=== PATIENT | male | born 1930 | race Caucasian/White ===

== ENCOUNTER 2017-02-22 10:42 | Inpatient (IN) | payer OTHER ==
[~2017-02-22] VITALS: Ht 162.6 cm; Wt 55.1 kg
[~2017-02-22 10:42] MED LIST: CITA40TA12 PO; CYAN500T PO; DONE1TAB26 PO; LATA0.5S OP; LEVO50TA PO; LISI-461 PO; NUTR-1197 PO; SIMV40TA4 PO
--- NOTE | 2017-02-22 11:20 | EMERGENCY ROOM VISIT NOTE ---
History Report prepared by Calderon: Jeniffer Maurice Under the Supervision of: Dr. Velma Morales M.D. First contact with patient: 10:54 Chief Complaint: ILLNESS Stated Complaint: DISORIENTED,POSSIBLE DEHYDRATION,COLD,HAS DEMENTIA History of Present Illness The patient is an 86 year old male who presents to the Emergency Room with complaints of increasing confusion that began five days ago. Per the patient's daughter, the patient has a history of dementia. She states that since Monday the patient's confusion has been worsening. The patient's daughter notes that the patient is increasingly irritable. She states that the patient has been urinating more frequently. The patient's daughter states that the patient has not been eating or drinking normally. She states that the patient typically sleeps often. The patient's daughter states that the patient has 24/ 7 nursing care. She notes that the patient was agitated on Monday evening. The patient's daughter denies the patient having hallucinations, but states that the patient's thoughts have not been making sense. She states that the patient typically can get up and walk with assistance to the bathroom, but states that recently the patient has not been. The history is limited secondary to the patient's dementia. Source of History: patient Onset: five days ago Position: other (global) Quality: other (confusion) Timing: other (increasing) Review of Systems The history is limited secondary to the patient's dementia. Past Medical & Surgical Medical Problems: (1) Dementia (2) DM (diabetes mellitus) (3) HTN (hypertension) (4) Hypothyroidism Social History Problems: (1) Hernia Family History Diabetes mellitus Hypertension Social History Smoking Status: Never Smoker Alcohol Use: none Drug Use: none Marital Status: Housing Status: lives with family Occupation Status: retired Current/Historical Medications Scheduled Aspirin (Aspirin Ec), 81 MG PO DAILY Brimonidine Tartrate (Brimonidine Tartrate), 1 DROP OPB BID Cholecalciferol (Vitamin D), 2,000 UNITS PO DAILY Citalopram Hydrobromide (Celexa), 20 MG PO DAILY Cyanocobalamin (Vitamin B-12), 500 MCG PO DAILY Donepezil Hydrochloride (Aricept), 1 TAB PO DAILY Dorzolamide Hcl-Timolol Maleat (Cosopt Oph), 1 DROPS OPB BID Enteral Nutrition Formula (Ensure), 1 CAN PO UD Latanoprost (Xalatan 0.005% Oph [place]), 1 DROPS OPB HS Levothyroxine Sodium (Synthroid), 50 MCG PO DAILY Lisinopril (Prinivil), 5 MG PO DAILY Melatonin (Melatonin), 5 MG PO HS Allergies Coded Allergies: No Known Allergies (Unverified , 02/22/17) Physical Exam Vital Signs Date Time Temp Pulse Resp B/P (MAP) Pulse Ox O2 Delivery O2 Flow Rate FiO2 02/22/17 13:52 37.9 76 18 128/82 Room Air 02/22/17 12:51 74 02/22/17 12:49 37.9 02/22/17 10:45 76 18 128/82 96 Room Air Physical Exam Vital signs reviewed. General: Chronically ill appearing male, elderly, in no significant distress. Not cooperative with exam. HEENT: No scleral icterus, PERRLA, neck supple. Atraumatic. Cardiovascular: Regular rate and rhythm, no extra sounds. Pulmonary: Clear to auscultation bilaterally, normal work of breathing. Abdomen: Soft, nontender, nondistended, positive bowel sounds. Musculoskeletal: Atraumatic, no peripheral edema. Neurologic: Patient is moving all extremities, but is not cooperative, nonverbal , will not follow commands. Skin: Warm, dry, no rash Medical Decision & Procedures ER Provider Diagnostic Interpretation: Radiology results as stated below per my review and radiologist interpretation: CT HEAD WITHOUT CONTRAST (CT) CLINICAL HISTORY: AMS CONFUSION COMPARISON STUDY: 04/21/2013 TECHNIQUE: Axial CT of the brain is performed from the vertex to the skull base. IV contrast was not administered for this examination. A dose lowering technique was utilized adhering to the principles of ALARA. CT DOSE: 1612.45 mGy.cm FINDINGS: No intra or extra-axial mass lesions are visualized. There is no CT evidence of acute cortical infarction. There is no evidence of midline shift. There is no acute hemorrhage. No calvarial fractures are visualized. There are moderate white matter hypodensities likely on a small vessel basis. There are moderate atrophic changes. There is no evidence of pathologic ventricular dilatation. There is no evidence of acute sinusitis IMPRESSION: 1. Study compromised due to patient motion 2. No acute intracranial findings. 3. No evidence of acute hemorrhage. White matter hypodensities and atrophy, likely on a small vessel basis Electronically signed by: Derrick Shaw M.D. 02/22/2017 12:45 PM Dictated Date/Time: 02/22/2017 12:41 PM CHEST ONE VIEW PORTABLE CLINICAL HISTORY: AMS COMPARISON STUDY: 11/09/2015 FINDINGS: The cardiac and mediastinal contours remain stable. There is no failure. There is no focal pulmonary consolidation. There are no pleural effusions. Advanced degenerative changes are present within the left shoulder. IMPRESSION: No active disease in the chest. Electronically signed by: Derrick Shaw M.D. 02/22/2017 12:05 PM Dictated Date/Time: 02/22/2017 12:04 PM Laboratory Results Test 02/22/17 11:45 02/22/17 11:55 02/22/17 13:03 02/22/17 14:15 Direct Bilirubin 0.2 mg/dl (0-0.2) Total Creatine Kinase 49 U/L (39-308) Creatine Kinase MB < 0.5 ng/ml (0.5-3.6) Creatine Kinase MB Ratio (0-3.0) Lipase 257 U/L (73-393) Thyroid Stimulating Hormone (TSH) 1.190 uIu/ml (0.300-4.500) Rapid Plasma Reagin NONREACTIVE (NONREACT) Bedside Lactic Acid Venous 1.99 mmol/L (0.90-1.70) Bedside Troponin I < 0.030 ng/ml (0-0.045) Urine Color DK YELLOW Urine Appearance CLEAR (CLEAR) Urine pH 5.0 (4.5-7.5) Urine Specific [place] 1.025 (1.000-1.030) Urine Protein 1+ (NEG) Urine Glucose (UA) NEG (NEG) Urine Ketones NEG (NEG) Urine Occult Blood NEG (NEG) Urine Nitrite NEG (NEG) Urine Bilirubin NEG (NEG) Urine Urobilinogen NEG (NEG) Urine Leukocyte Esterase NEG (NEG) Urine WBC (Auto) 0 /hpf (0-5) Urine RBC (Auto) 0-4 /hpf (0-4) Urine Hyaline Casts (Auto) 1-5 /lpf (0-5) Urine Epithelial Cells (Auto) 5-10 /lpf (0-5) Urine Bacteria (Auto) NEG (NEG) Influenza Type A Antigen POS for Influ A (NEG) Influenza Type B Antigen Neg for Influ B (NEG) Date/Time Source Procedure Growth Status 02/22/17 00:00 Stool C.difficile Toxin B Gene (PCR) - Final No C. difficile toxin B gene detected Complete Laboratory results per my review. Medications Administered Medications (Trade) Dose Ordered Sig/Reid Route Start Time Stop Time Status Last Admin Dose Admin Piperacillin Sod/ Tazobactam Sod (Zosyn Iv) 4.5 gm NOW STAT IV 02/22/17 12:51 02/22/17 12:53 DC 02/22/17 13:20 4.5 GM Sodium Chloride 250 ml @ 999 mls/hr Q16M STAT IV 02/22/17 12:51 02/22/17 13:06 DC 02/22/17 12:51 999 MLS/HR Sodium Chloride 1,000 ml @ 125 mls/hr Q8H STAT IV 02/22/17 12:51 02/22/17 15:22 DC 02/22/17 13:20 125 MLS/HR Acetaminophen 650 mg/Empty Bag 65 ml @ 260 mls/hr NOW STAT IV 02/22/17 12:51 02/22/17 13:05 DC 02/22/17 14:31 260 MLS/HR ECG Indication: altered mental status Rate (beats per minute): 68 Rhythm: sinus rhythm Findings: PAC, left axis deviation, other (low voltage, likely previous anteiror infarct, t wave flattening) ED Course 1113: Past medical records reviewed. The patient was evaluated in room C4. A complete history and physical examination was performed. 1251: Ordered Acetaminophen 650 mg/Empty Bag 65 ml @ 260 mls/hr IV, Sodium Chloride 1000 ml @ 125 mls/hr IV, Sodium Chloride 250 ml @ 999 mls/hr IV, Zosyn IV 4.5 gm IV. 1323: I reevaluated the patient and he is resting. I discussed the test results with the patients daughters and I discussed the treatment plan. They verbalized complete understanding and agreement. The patient will be evaluated for further treatment. 1325: I discussed the patients case with Lorena Kwan PA-C. She is going to evaluate the patient for further treatment Medical Decision Differential diagnosis: Etiologies such as metabolic, infection, hypoglycemia, electrolyte abnormalities , cardiac sources, intracerebral event, toxicologic, neurologic, as well as others were entertained. This pt was evaluated and appeared to be in no distress. IV access was obtained and lab work was drawn. Pt was given IV tylenol d/t refusal for food and fluids. EKG reveals no acute changes. Lab work is fairly unrevealing. UA is negative, CXR is clear. Head CT reveals no acute intracranial abnormality. Nursing staff performed guaiac stool that is positive, H/H is stable. Pt was given zosyn 4.5 gm IV for fever of unknown origin. Pt will be evaluated by the hospitalist service for further management. Medication Reconcilliation Current Medication List: was personally reviewed by me Blood Pressure Screening Patient's blood pressure: Normal blood pressure Blood pressure disposition: Did not require urgent referral Consults Time Called: 1322 Consulting Physician: Lorena Kwan PA-C Returned Call: [phone] I discussed the patients case with Lorena Kwan PA-C. She is going to evaluate the patient for further treatment Impression Primary Impression: Altered mental status Additional Impressions: Refusal to take fluids Fever Guaiac positive stools Scribe Attestation The scribe's documentation has been prepared under my direction and personally reviewed by me in its entirety. I confirm that the note above accurately reflects all work, treatment, procedures, and medical decision making performed by me. Departure Information Dispostion Being Evaluated By Hospitalist Referrals No Doctor, Assigned (PCP) Problem Qualifiers
[2017-02-22] MEDS ORDERED: NUTR-706 PO (11:32)
[2017-02-22] MEDS ORDERED: CYAN500T PO (11:32)
[2017-02-22] MEDS ORDERED: LISI-729 PO (11:32)
[2017-02-22] MEDS ORDERED: ASPI81TA28 PO (11:32)
[2017-02-22] MEDS ORDERED: CITA40TA12 PO (11:32)
[2017-02-22] MEDS ORDERED: MELA1TAB54 PO (11:32)
[2017-02-22] MEDS ORDERED: LEVO50TA PO (11:32)
[2017-02-22] MEDS ORDERED: CHOL100010 PO (11:32)
[2017-02-22] MEDS ORDERED: LATA0.009 OPB (11:32)
[2017-02-22] MEDS ORDERED: BRIM0.2S18 OPB (11:32)
[2017-02-22] MEDS ORDERED: DORZ2SOL20 OPB (11:32)
--- NOTE | 2017-02-22 12:06 | DIAGNOSTIC IMAGING REPORT ---
CHEST ONE VIEW PORTABLE CLINICAL HISTORY: AMS COMPARISON STUDY: 11/09/2015 FINDINGS: The cardiac and mediastinal contours remain stable. There is no failure. There is no focal pulmonary consolidation. There are no pleural effusions. Advanced degenerative changes are present within the left shoulder. IMPRESSION: No active disease in the chest. Electronically signed by: Derrick Shaw M.D. 02/22/2017 12:05 PM Dictated Date/Time: 02/22/2017 12:04 PM
[2017-02-22 12:32] LABS: BASO % 0.2 %; BASO ABS # 0.01 K/uL (0-0.2); COMPLETE YES; HEMATOCRIT 42.8 % (42-52); IG% 0.2 %; LYMPH ABS # 0.81 K/uL (1.2-3.4); MEAN CELL VOLUME 101.9 fL (80-100); MEAN CORPUSCULAR HGB CONC 33.4 g/dl (32-36); MEAN PLATELET VOLUME 11.5 fL (7.4-10.4); NEUT % 67.6 %; PLATELET COUNT 126 K/uL (130-400)
--- NOTE | 2017-02-22 12:46 | DIAGNOSTIC IMAGING REPORT ---
CT HEAD WITHOUT CONTRAST (CT) CLINICAL HISTORY: AMS CONFUSION COMPARISON STUDY: 04/21/2013 TECHNIQUE: Axial CT of the brain is performed from the vertex to the skull base. IV contrast was not administered for this examination. A dose lowering technique was utilized adhering to the principles of ALARA. CT DOSE: 1612.45 mGy.cm FINDINGS: No intra or extra-axial mass lesions are visualized. There is no CT evidence of acute cortical infarction. There is no evidence of midline shift. There is no acute hemorrhage. No calvarial fractures are visualized. There are moderate white matter hypodensities likely on a small vessel basis. There are moderate atrophic changes. There is no evidence of pathologic ventricular dilatation. There is no evidence of acute sinusitis IMPRESSION: 1. Study compromised due to patient motion 2. No acute intracranial findings. 3. No evidence of acute hemorrhage. White matter hypodensities and atrophy, likely on a small vessel basis Electronically signed by: Derrick Shaw M.D. 02/22/2017 12:45 PM Dictated Date/Time: 02/22/2017 12:41 PM
[2017-02-22 12:50] LABS: ALT/SGPT 18 U/L (12-78); AST/SGOT 12 U/L (15-37); BLOOD UREA NITROGEN 29 mg/dl (7-18); BUN/CREATININE RATIO 18.8 (10-20); CALCIUM 8.9 mg/dl (8.5-10.1); CARBON DIOXIDE 26 mmol/L (21-32); CHLORIDE 104 mmol/L (98-107); CREATININE 1.52 mg/dl (0.60-1.40); GLUCOSE 108 mg/dl (70-99); MAGNESIUM 2.3 mg/dl (1.8-2.4); POTASSIUM 4.3 mmol/L (3.5-5.1); SODIUM 136 mmol/L (136-145)
[2017-02-22] MEDS ORDERED: PIPERACILLIN/TAZOBACTAM 4.5 GM/100ML D5W IV STA (12:51)
[2017-02-22] MEDS ORDERED: ACETAMINOPHEN IV 650 MG in EMPTY BAG 0 ML IV STA (12:51)
[2017-02-22] MEDS ORDERED: SODIUM CHLORIDE 0.9% 250ML 250 ML IV STA (12:51)
[2017-02-22] MEDS ORDERED: SODIUM CHLORIDE 0.9% 1000ML 1,000 ML IV STA (12:51)
[2017-02-22 12:59] LABS: ALKALINE PHOSPHATASE 48 U/L (45-117)
[2017-02-22 13:15] LABS: URINE APPEARANCE CLEAR (CLEAR); URINE BILIRUBIN NEG (NEG); URINE COLOR DK YELLOW; URINE NITRITE NEG (NEG); URINE SPECIFIC GRAVITY 1.025 (1.000-1.030); UROBILINOGEN NEG (NEG); ZZURINE CULT IF INDIC CATH NO
[2017-02-22 13:16] LABS: MANUAL MICROSCOPIC REQUIRED? NO; REVIEW REQ? NO
[2017-02-22 13:52] VITALS: BP 128/82; PULSE 76; TEMP 37.9
[2017-02-22 14:25] VITALS: O2SAT 96
[2017-02-22] MEDS ORDERED: DONE10TA12 PO (14:28)
[2017-02-22] MEDS ORDERED: ONDANSETRON INJ 2 MG/ML 2 ML VIAL IV PRN (14:30)
[2017-02-22] MEDS ORDERED: IV FLUIDS COMPLETED PRN (15:15)
[2017-02-22 15:29] VITALS: BP 96/54; PULSE 70; TEMP 37.5; O2SAT 93
[2017-02-22] MEDS ORDERED: SODIUM CHLORIDE 0.9% 1000ML 1,000 ML IV SCH (15:30)
--- NOTE | 2017-02-22 15:42 | History and Physical ---
History & Physical Date of Service Feb 22, 2017. History & Physical This is an 86 year old male with a PMH of advanced dementia, legal blindness, hard of hearing, HTN, hypothyroidism presents with alteration in baseline mental status. He is coming from home and as per daughter who is at bedside - patient has 24 hour care at home. She states that starting on Monday, patient became more agitated, running around at night and difficult to control. He started urinating frequently and everywhere. He has no lost his appetite and will not eat for anyone at home. Patient was brought in to the ER - daughter stated it took three people to bring him to the ER. Head CT - no acute findings CXR - no acute findings VITALS: Last Vital Signs Documentation Date Time Temp Pulse Resp B/P (MAP) Pulse Ox O2 Delivery O2 Flow Rate FiO2 02/22/17 14:25 64 18 96 Room Air 02/22/17 13:52 37.9 128/82 GEN: +lethargic, +advanced dementia, currently non-verbal HEENT: NC/AT CVS: +S1, S2, RRR LUNGS: CTA b/l, no wheezing ABD: soft, NT/ND EXT: no edema Advanced Dementia Underlying Delirium? as per family, his mental status is worse than baseline will check B12, ammonia, RPR levels recheck lactic acid and troponin level check a KUB check stool studies blood cultures pending IVFs boost BIDM PT/OT discharge planning evaluation Diarrhea check KUB check stool studies, check c. diff Hypothyroidism TSH wnl continue Synthroid DVT ppx subq heparin FULL CODE - as per daughter, patient has a living will and she will be bringing this in
--- NOTE | 2017-02-22 15:48 | History and Physical ---
History & Physical Date & Time of Service: Feb 22, 2017 at 15:23 Chief Complaint: Altered Mental Status, Dehydration Primary Care Physician: Jacinto Root D.O. History of Present Illness Source: patient, family (daughter and care management coordinator at bedside ), clinic records, hospital records This is an 86yo M with a PMH of advanced dementia, HTN, and DM who presents with increased confusion and agitation x 5 days. Patient lives at home and received 24/7 care by his daughters and 2 other care givers. At baseline, patient is verbal and responds to yes or no questions. Is alert and oriented x 2 and is able to ambulate without assistive devices. Has a healthy appetite and is continent of bowel and bladder. Starting on Monday evening, patient seemed more confused and agitated. Was speaking less than normal and his statements were not making sense. Daughter also states that patient has been sleeping more during the day but moving around at night. Is refusing PO intake of food and liquids. Has been urinating more frequently than normal and having some urinary incontinence. Has been having bowel movements but they are strained and infrequent over the past few weeks. HPI and ROS is limited due to patient's dementia/AMS. Also, patient was recently declared legally blind and is very hard of hearing. All history was obtained from daughter and caregiver. They state that patient has not complained of confusion, fever, chills, headache, chest pain, SOB, abd pain, nausea, vomiting over the past 5 days. Denies any hallucinations. Also denies any melena or hematochezia. Has a history of hemorrhoids. Past Medical/Surgical History Medical Problems: (1) Dementia Status: Chronic (2) DM (diabetes mellitus) Status: Chronic (3) HTN (hypertension) Status: Chronic (4) Hypothyroidism Status: Chronic Social History Problems: (1) Hernia Status: Resolved Family History Diabetes mellitus Hypertension Social History Smoking Status: Unknown if Ever Smoked Drug Use: none Marital Status: Housing status: other (Lives at home with 24/7 care) Occupational Status: retired Allergies Coded Allergies: No Known Allergies (Unverified , 02/22/17) Home Medications Scheduled Aspirin (Aspirin Ec), 81 MG PO DAILY Brimonidine Tartrate (Brimonidine Tartrate), 1 DROP OPB BID Cholecalciferol (Vitamin D), 2,000 UNITS PO DAILY Citalopram Hydrobromide (Celexa), 20 MG PO DAILY Cyanocobalamin (Vitamin B-12), 500 MCG PO DAILY Donepezil Hydrochloride (Aricept), 1 TAB PO DAILY Dorzolamide Hcl-Timolol Maleat (Cosopt Oph), 1 DROPS OPB BID Enteral Nutrition Formula (Ensure), 1 CAN PO UD Latanoprost (Xalatan 0.005% Oph Maria [place]), 1 DROPS OPB HS Levothyroxine Sodium (Synthroid), 50 MCG PO DAILY Lisinopril (Prinivil), 5 MG PO DAILY Melatonin (Melatonin), 5 MG PO HS Review of Systems Unable to complete a full ROS 04/14 patient's altered state. Any information I could successfully obtain is per HPI. Physical Exam Vital Signs Date Time Temp Pulse Resp B/P (MAP) Pulse Ox O2 Delivery O2 Flow Rate FiO2 02/22/17 14:25 64 18 96 Room Air 02/22/17 13:52 37.9 76 18 128/82 Room Air 02/22/17 12:51 74 02/22/17 12:49 37.9 02/22/17 10:45 76 18 128/82 96 Room Air General Appearance: + pertinent finding (Disheveled appearance, lethargic. Responded to some verbal commands. ) Head: normocephalic, atraumatic Eyes: normal inspection (legally blind bilaterally), PERRL, sclerae normal ENT: + pertinent finding (hard of hearing. refused to open mouth ) Neck: supple, no adenopathy, trachea midline Respiratory/Chest: chest non-tender, no respiratory distress, no accessory muscle use, + decreased breath sounds Cardiovascular: regular rate, rhythm, no murmur, normal peripheral pulses Abdomen/GI: soft, no organomegaly, + tenderness (TTP in LLQ. Otherwise non- tender) Extremities/Musculoskelatal: normal inspection, no calf tenderness, no pedal edema Neurologic/Psych: + pertinent finding (Responded to some commands but non- verbal at this time. Lethargic. ) Skin: normal color, warm/dry Diagnostics Laboratory Results Results Past 24 Hours Test 02/22/17 11:45 02/22/17 11:55 02/22/17 13:03 02/22/17 14:15 Range/Units White Blood Count 4.50 4.8-10.8 K/uL Red Blood Count 4.20 4.7-6.1 M/uL Hemoglobin 14.3 14.0-18.0 g/dL Hematocrit 42.8 42-52 % Mean Corpuscular Volume 101.9 80-100 fL Mean Corpuscular Hemoglobin 34.0 25-34 pg Mean Corpuscular Hemoglobin Concent 33.4 32-36 g/dl Platelet Count 126 130-400 K/uL Mean Platelet Volume 11.5 7.4-10.4 fL Neutrophils (%) (Auto) 67.6 % Lymphocytes (%) (Auto) 18.0 % Monocytes (%) (Auto) 14.0 % Eosinophils (%) (Auto) 0.0 % Basophils (%) (Auto) 0.2 % Neutrophils # (Auto) 3.04 1.4-6.5 K/uL Lymphocytes # (Auto) 0.81 1.2-3.4 K/uL Monocytes # (Auto) 0.63 0.11-0.59 K/uL Eosinophils # (Auto) 0.00 0-0.5 K/uL Basophils # (Auto) 0.01 0-0.2 K/uL RDW Standard Deviation 52.6 36.4-46.3 fL RDW Coefficient of Variation 14.1 11.5-14.5 % Immature Granulocyte % (Auto) 0.2 % Immature Granulocyte # (Auto) 0.01 0.00-0.02 K/uL Sodium Level 136 136-145 mmol/L Potassium Level 4.3 3.5-5.1 mmol/L Chloride Level 104 98-107 mmol/L Carbon Dioxide Level 26 21-32 mmol/L Anion Gap 6.0 3-11 mmol/L Blood Urea Nitrogen 29 7-18 mg/dl Creatinine 1.52 0.60-1.40 mg/dl Estimated GFR () 47.7 Estimated GFR (Non- 41.2 BUN/Creatinine Ratio 18.8 10-20 Random Glucose 108 70-99 mg/dl Calcium Level 8.9 8.5-10.1 mg/dl Magnesium Level 2.3 1.8-2.4 mg/dl Total Bilirubin 1.2 0.2-1 mg/dl Direct Bilirubin 0.2 0-0.2 mg/dl Aspartate Amino Transf (AST/SGOT) 12 15-37 U/L Alanine Aminotransferase (ALT/SGPT) 18 12-78 U/L Alkaline Phosphatase 48 45-117 U/L Total Creatine Kinase 49 39-308 U/L Creatine Kinase MB < 0.5 0.5-3.6 ng/ml Creatine Kinase MB Ratio 0-3.0 Total Protein 7.2 6.4-8.2 gm/dl Albumin 3.4 3.4-5.0 gm/dl Lipase 257 73-393 U/L Thyroid Stimulating Hormone (TSH) 1.190 0.300-4.500 uIu/ml Bedside Lactic Acid Venous 1.99 0.90-1.70 mmol/L Bedside Troponin I < 0.030 0-0.045 ng/ml Urine Color DK YELLOW Urine Appearance CLEAR CLEAR Urine pH 5.0 4.5-7.5 Urine Specific [place] 1.025 1.000-1.030 Urine Protein 1+ NEG Urine Glucose (UA) NEG NEG Urine Ketones NEG NEG Urine Occult Blood NEG NEG Urine Nitrite NEG NEG Urine Bilirubin NEG NEG Urine Urobilinogen NEG NEG Urine Leukocyte Esterase NEG NEG Urine WBC (Auto) 0 0-5 /hpf Urine RBC (Auto) 0-4 0-4 /hpf Urine Hyaline Casts (Auto) 1-5 0-5 /lpf Urine Epithelial Cells (Auto) 5-10 0-5 /lpf Urine Bacteria (Auto) NEG NEG Influenza Type A Antigen POS for Influ A NEG Influenza Type B Antigen Neg for Influ B NEG Test 02/22/17 14:48 02/22/17 15:18 Range/Units Lactic Acid Level 1.9 0.4-2.0 mmol/L Ammonia 18.9 11-32 umol/L Troponin I < 0.015 0-0.045 ng/ml Microbiology Results 02/22/17 Blood Culture, Received Pending 02/22/17 Blood Culture, Received Pending Diagnostic Radiology CT head: IMPRESSION: 1. Study compromised due to patient motion 2. No acute intracranial findings. 3. No evidence of acute hemorrhage. White matter hypodensities and atrophy, likely on a small vessel basis CXR normal EKG Sinus rhythm with Premature atrial complexes Left axis deviation Low voltage QRS Nonspecific T wave abnormality Abnormal ECG When compared with ECG of 09-NOV-2015 18:56, Premature atrial complexes are now Present Nonspecific T wave abnormality now evident in Anterolateral leads Confirmed Impression Assessment and Plan This is an 86yo M with a PMH of advanced dementia, HTN, hypothyroidism and DM who presents with increased confusion and agitation x 5 days. Confusion/agitation: -Likely due to advanced dementia and ?superimposed delirium -Currently lethargic, non-verbal, lacking an appetite, not ambulating -At baseline patient can ambulate independently and answer yes/no questions -CT head normal, no leukocytosis, electrolytes and UA WNL -B12, RPR, Flu PCR, ammonia level pending -Repeat lactic acid and troponin pending -Boost BID -PT/OT Fever: -Rectal temp of 37.9. Unclear etiology -No leukocytosis -CXR without opacities, UA clean -Flu PCR pending -Received empiric dose of Zosyn in ER -Blood cultures, stool cultures pending -Fluids Constipation, +FOBT: -H/o hemorrhoids -Daughter reports constipation x 2 weeks -No reported melena, hematochezia -Hgb stable at 14.3 -Check a KUB -IVF resuscitation HTN: -Normotensive -Continue home dose lisinopril Hypothyroidism: -TSH wnl -Continue levothyroxine DM: -Diet controlled DVT Ppx: Heparin SQ Code status: FULL code. Daughter, who is POA, has a copy of his living will that she will bring from home. PCP: [facility] Dispo: Observation medsurg. Discharge planning ordered. Patient seen in collaboration with Dr. Hamilton. Please see addendum. Level of Care Telemetry Advanced Directives Existing Living Will: Yes Existing Power of Wire Spiral Binder: Yes Resuscitation Status FULL RESUSCITATION VTE Prophylaxis VTE Risk Assessment Done? Y/N: Yes Risk Level: Moderate Given or contraindicated: SCD's Social Service Consult Receiving Home Health
[2017-02-22] MEDS ORDERED: PATIENT'S HEIGHT AND/OR WEIGHT NEEDED SCH (16:30)
[2017-02-22 17:34] LABS: PARTIAL THROMBOPLASTIN RATIO 1.3; PROTHROMBIN TIME (PATIENT) 10.8 SECONDS (9.0-12.0)
[2017-02-22] MEDS: BOOST VANILLA PO SCH ×2 (17:37)
[2017-02-22 18:01] VITALS: Ht 162.6 cm; Wt 55.1 kg
--- NOTE | 2017-02-22 20:48 | DIAGNOSTIC IMAGING REPORT ---
KUB HISTORY: constipation COMPARISON: None. FINDINGS: Exam is limited secondary to patient positioning. Bowel gas pattern is nonobstructive. Scattered air-filled nondilated loops of bowel are seen throughout the abdomen. No significant stool burden suggests constipation. No gross pneumoperitoneum. Renal shadows are obscured by bowel gas. No definite urolith or organomegaly. Vascular calcifications are noted. Degenerative changes are seen within the spine and pelvis. Lung bases appear generally clear. IMPRESSION: 1. Nonobstructive bowel gas pattern. 2. No evidence of constipation. Electronically signed by: Aman Zarco M.D. 02/22/2017 8:47 PM Dictated Date/Time: 02/22/2017 8:45 PM
[2017-02-22] MEDS ORDERED: HEPARIN SOD 5000 UNIT/0.5 ML CARP SQ SCH (21:00)
[2017-02-22] MEDS: DORZOLAMIDE/TIMOLOL 22.3/6.8MG/ML 10 ML BTL OPB SCH (22:03)
[2017-02-22] MEDS: LATANOPROST 0.005% OP SOLN 2.5 ML BTL OPB SCH (22:03)
[2017-02-22] MEDS: BRIMONIDINE TARTRATE 0.2% 5ML OPB SCH (22:03)
[2017-02-22 23:50] VITALS: BP 116/71; PULSE 65
[2017-02-23] MEDS ORDERED: HALOPERIDOL LACTATE 5 MG/ML 1 ML VIAL IM PRN
[2017-02-23] MEDS ORDERED: HALOPERIDOL 1 MG TAB PO PRN
--- NOTE | 2017-02-23 02:38 | Progress Note ---
Internal Med Progress Note Date of Service: Feb 23, 2017. Provider Documentation: Made aware by RN of agitation, bloody diarrhea. Patient unable to communicate abdominal pain complaints. stool cdif negative AP ? Hemorrhagic enterocolitis serial HH, hold heparin subcutaneous for now CT abd pelvis once patient cooperative IV Ceftriaxone, Flagyl for enterocolitis for now May need GI consult. Will relay to AM provider. Vital Signs: Date Time Temp Pulse Resp B/P (MAP) Pulse Ox O2 Delivery O2 Flow Rate FiO2 02/23/17 00:00 Room Air 02/22/17 23:50 65 116/71 (86) 02/22/17 15:29 37.5 70 18 96/54 (68) 93 Room Air 02/22/17 14:25 64 18 96 Room Air 02/22/17 13:52 37.9 76 18 128/82 Room Air 02/22/17 12:51 74 02/22/17 12:49 37.9 02/22/17 10:45 76 18 128/82 96 Room Air Lab Results: Results Past 24 Hours Test 02/22/17 11:45 02/22/17 11:55 02/22/17 13:03 02/22/17 14:15 Range/Units White Blood Count 4.50 4.8-10.8 K/uL Red Blood Count 4.20 4.7-6.1 M/uL Hemoglobin 14.3 14.0-18.0 g/dL Hematocrit 42.8 42-52 % Mean Corpuscular Volume 101.9 80-100 fL Mean Corpuscular Hemoglobin 34.0 25-34 pg Mean Corpuscular Hemoglobin Concent 33.4 32-36 g/dl Platelet Count 126 130-400 K/uL Mean Platelet Volume 11.5 7.4-10.4 fL Neutrophils (%) (Auto) 67.6 % Lymphocytes (%) (Auto) 18.0 % Monocytes (%) (Auto) 14.0 % Eosinophils (%) (Auto) 0.0 % Basophils (%) (Auto) 0.2 % Neutrophils # (Auto) 3.04 1.4-6.5 K/uL Lymphocytes # (Auto) 0.81 1.2-3.4 K/uL Monocytes # (Auto) 0.63 0.11-0.59 K/uL Eosinophils # (Auto) 0.00 0-0.5 K/uL Basophils # (Auto) 0.01 0-0.2 K/uL RDW Standard Deviation 52.6 36.4-46.3 fL RDW Coefficient of Variation 14.1 11.5-14.5 % Immature Granulocyte % (Auto) 0.2 % Immature Granulocyte # (Auto) 0.01 0.00-0.02 K/uL Sodium Level 136 136-145 mmol/L Potassium Level 4.3 3.5-5.1 mmol/L Chloride Level 104 98-107 mmol/L Carbon Dioxide Level 26 21-32 mmol/L Anion Gap 6.0 3-11 mmol/L Blood Urea Nitrogen 29 7-18 mg/dl Creatinine 1.52 0.60-1.40 mg/dl Estimated GFR () 47.7 Estimated GFR (Non- 41.2 BUN/Creatinine Ratio 18.8 10-20 Random Glucose 108 70-99 mg/dl Calcium Level 8.9 8.5-10.1 mg/dl Magnesium Level 2.3 1.8-2.4 mg/dl Total Bilirubin 1.2 0.2-1 mg/dl Direct Bilirubin 0.2 0-0.2 mg/dl Aspartate Amino Transf (AST/SGOT) 12 15-37 U/L Alanine Aminotransferase (ALT/SGPT) 18 12-78 U/L Alkaline Phosphatase 48 45-117 U/L Total Creatine Kinase 49 39-308 U/L Creatine Kinase MB < 0.5 0.5-3.6 ng/ml Creatine Kinase MB Ratio 0-3.0 Total Protein 7.2 6.4-8.2 gm/dl Albumin 3.4 3.4-5.0 gm/dl Lipase 257 73-393 U/L Thyroid Stimulating Hormone (TSH) 1.190 0.300-4.500 uIu/ml Bedside Lactic Acid Venous 1.99 0.90-1.70 mmol/L Bedside Troponin I < 0.030 0-0.045 ng/ml Urine Color DK YELLOW Urine Appearance CLEAR CLEAR Urine pH 5.0 4.5-7.5 Urine Specific [place] 1.025 1.000-1.030 Urine Protein 1+ NEG Urine Glucose (UA) NEG NEG Urine Ketones NEG NEG Urine Occult Blood NEG NEG Urine Nitrite NEG NEG Urine Bilirubin NEG NEG Urine Urobilinogen NEG NEG Urine Leukocyte Esterase NEG NEG Urine WBC (Auto) 0 0-5 /hpf Urine RBC (Auto) 0-4 0-4 /hpf Urine Hyaline Casts (Auto) 1-5 0-5 /lpf Urine Epithelial Cells (Auto) 5-10 0-5 /lpf Urine Bacteria (Auto) NEG NEG Influenza Type A Antigen POS for Influ A NEG Influenza Type B Antigen Neg for Influ B NEG Test 02/22/17 14:48 02/22/17 16:02 02/22/17 16:52 02/23/17 02:43 Range/Units Lactic Acid Level 1.9 0.4-2.0 mmol/L Ammonia 18.9 11-32 umol/L Troponin I < 0.015 0-0.045 ng/ml Vitamin B12 Level 622 211-911 pg/mL Folate 10.07 >5.38 ng/mL Prothrombin Time 10.8 9.0-12.0 SECONDS Prothromb Time International Ratio 1.0 0.9-1.1 Activated Partial Thromboplast Time 34.8 21.0-31.0 SECONDS Partial Thromboplastin Ratio 1.3 White Blood Count 4.01 4.8-10.8 K/uL Red Blood Count 4.02 4.7-6.1 M/uL Hemoglobin 13.9 14.0-18.0 g/dL Hematocrit 40.9 42-52 % Mean Corpuscular Volume 101.7 80-100 fL Mean Corpuscular Hemoglobin 34.6 25-34 pg Mean Corpuscular Hemoglobin Concent 34.0 32-36 g/dl Platelet Count 103 130-400 K/uL Mean Platelet Volume 10.8 7.4-10.4 fL Neutrophils (%) (Auto) 61.0 % Lymphocytes (%) (Auto) 25.2 % Monocytes (%) (Auto) 13.2 % Eosinophils (%) (Auto) 0.2 % Basophils (%) (Auto) 0.2 % Neutrophils # (Auto) 2.44 1.4-6.5 K/uL Lymphocytes # (Auto) 1.01 1.2-3.4 K/uL Monocytes # (Auto) 0.53 0.11-0.59 K/uL Eosinophils # (Auto) 0.01 0-0.5 K/uL Basophils # (Auto) 0.01 0-0.2 K/uL RDW Standard Deviation 51.5 36.4-46.3 fL RDW Coefficient of Variation 13.8 11.5-14.5 % Immature Granulocyte % (Auto) 0.2 % Immature Granulocyte # (Auto) 0.01 0.00-0.02 K/uL Sodium Level 138 136-145 mmol/L Potassium Level 4.2 3.5-5.1 mmol/L Chloride Level 107 98-107 mmol/L Carbon Dioxide Level 26 21-32 mmol/L Anion Gap 5.0 3-11 mmol/L Blood Urea Nitrogen 26 7-18 mg/dl Creatinine 1.33 0.60-1.40 mg/dl Est Creatinine Clear Calc Drug Dose 31.6 ml/min Estimated GFR () 56.1 Estimated GFR (Non- 48.4 BUN/Creatinine Ratio 19.6 10-20 Random Glucose 68 70-99 mg/dl Calcium Level 8.4 8.5-10.1 mg/dl Magnesium Level 2.0 1.8-2.4 mg/dl Total Bilirubin 1.2 0.2-1 mg/dl Aspartate Amino Transf (AST/SGOT) 15 15-37 U/L Alanine Aminotransferase (ALT/SGPT) 16 12-78 U/L Alkaline Phosphatase 44 45-117 U/L Total Protein 6.6 6.4-8.2 gm/dl Albumin 3.2 3.4-5.0 gm/dl Globulin 3.4 2.5-4.0 gm/dl Albumin/Globulin Ratio 0.9 0.9-2 Test 02/23/17 04:57 Range/Units Bedside Glucose 169 70-99 mg/dl Microbiology Results 02/22/17 Blood Culture, Received Pending 02/22/17 Blood Culture, Received Pending
[2017-02-23 02:58] LABS: BASO % 0.2 %; BASO ABS # 0.01 K/uL (0-0.2); COMPLETE YES; EOS % 0.2 %; HEMATOCRIT 40.9 % (42-52); IG% 0.2 %; LYMPH % 25.2 %; LYMPH ABS # 1.01 K/uL (1.2-3.4); MEAN CELL VOLUME 101.7 fL (80-100); MEAN CORPUSCULAR HEMOGLOBIN 34.6 pg (25-34); MEAN PLATELET VOLUME 10.8 fL (7.4-10.4); MONO % 13.2 %; PLATELET COUNT 103 K/uL (130-400); RED BLOOD COUNT 4.02 M/uL (4.7-6.1); WHITE BLOOD COUNT 4.01 K/uL (4.8-10.8)
[2017-02-23 03:22] LABS: BUN/CREATININE RATIO 19.6 (10-20); CALCIUM 8.4 mg/dl (8.5-10.1); CREATININE 1.33 mg/dl (0.60-1.40); POTASSIUM 4.2 mmol/L (3.5-5.1)
[2017-02-23 03:25] LABS: ALB/GLOB RATIO 0.9 (0.9-2)
[2017-02-23] MEDS ORDERED: CEFTRIAXONE SOD INJ 1 GM in DEXTROSE 5% ADD-VANTAGE 50ML 50 ML IV SCH (03:30)
[2017-02-23] MEDS ORDERED: DEXTROSE 50% 50 ML SYR IV ONE (03:45)
[2017-02-23] MEDS: METRONIDAZOLE / NSS 500 MG in PREMIXED NSS 100 ML IV SCH ×3 (03:55→19:28)
[2017-02-23] MEDS: DEXTROSE 5% 1000ML 1,000 ML IV SCH (04:17)
[2017-02-23] MEDS: LEVOTHYROXINE 50 MCG TAB PO SCH (06:30)
[2017-02-23] MEDS: BOOST VANILLA PO SCH ×4 (08:00→17:00)
[2017-02-23 08:41] VITALS: BP 95/62; PULSE 63; TEMP 38.2; O2SAT 92
[2017-02-23] MEDS: DORZOLAMIDE/TIMOLOL 22.3/6.8MG/ML 10 ML BTL OPB SCH ×2 (09:00→21:00)
[2017-02-23] MEDS: BRIMONIDINE TARTRATE 0.2% 5ML OPB SCH ×2 (09:00→21:00)
[2017-02-23] MEDS: DONEPEZIL HCL 10 MG TAB PO SCH (09:00)
[2017-02-23] MEDS: LISINOPRIL 5 MG TAB PO SCH (09:00)
[2017-02-23] MEDS: CHOLECALCIFEROL 1000 INTER.UNIT TAB PO SCH (09:00)
[2017-02-23] MEDS: CITALOPRAM 20 MG TAB PO SCH (09:00)
[2017-02-23] MEDS: CYANOCOBALAMIN 500 MCG TAB (VIT B-12) PO SCH (09:00)
--- NOTE | 2017-02-23 10:18 | Gastrointestinal Consultation ---
Gastrointestinal Consultation Date of Consultation: Feb 23, 2017 Attending Physician: Everardo Consulting Physician: Everton Reason for Consultation: bloody diarrhea History of Present Illness Patient is a 86 year old male w/ dementia and others listed below who presented through the ED for evaluation of confusion and agitation for a week. Pt was seen and evaluated, chart reviewed. History obtained from pt daughter, Angy, over the phone. Nursing staff in aided in history as well. She notes her dad has 24/7 care, and typically is more conversive, over the past week noted change from his baseline - was interacting less, took less PO, and was confused. Was taken to ED, + flu. Notes a history of constipation and hemorrhoids, w/ intermittent BRBPR streaking. Since admission had large episode of BRBPR x 4-5 episodes, no clots. He denies any abdominal pain. He is resistant to exam. ROS not obtained to due pt mental status Physical exam limited due to pt KUB 02/22/17: Nonobstructive bowel gas pattern. No evidence of constipation. Chest XR 02/22/17: No active disease in the chest. Colonoscopy: WNL per pt daughter 20 years ago Past Medical/Surgical History Medical Problems: (1) Altered mental status Status: Acute Past Medical History: T2DM, dementia, HTN, Hypothyroidism, legally blind, hard of hearing Past Surgical History: hernia repair, colonoscopy Family History Diabetes mellitus Hypertension Social History Smoking Status: Unknown if Ever Smoked Alcohol Use: none Drug Use: none Marital Status: Housing Status: lives with family Occupation Status: retired Allergies Coded Allergies: No Known Allergies (Unverified , 02/22/17) Current Medications Home Meds and Scripts Medications Dose Route/Sig Max Daily Dose Days Date Category Dose Instructions Aricept (Donepezil Hydrochloride) 10 Mg Tab 1 Tab PO DAILY 90 02/22/17 Reported Melatonin 5 Mg Tab 5 Mg PO HS 02/22/17 Reported Vitamin D (Cholecalciferol) 1,000 Unit Tab 2,000 Units PO DAILY 02/22/17 Reported Aspirin Ec (Aspirin) 81 Mg Tab 81 Mg PO DAILY 02/22/17 Reported Ensure (Enteral Nutritional Formula) Liq 1 Can PO UD 02/22/17 Reported Prinivil (Lisinopril) 5 Mg Tab 5 Mg PO DAILY 02/22/17 Reported Synthroid (Levothyroxine Sodium) 50 Mcg Tab 50 Mcg PO DAILY 02/22/17 Reported AT 0600 Xalatan 0.005% Oph Maria Victoria (Latanoprost) 0.005 % Maria Victoria 1 Drops OPB HS 02/22/17 Reported Cosopt Oph (Dorzolamide Hcl-Timolol Maleat) 1 Maria Victoria Maria Victoria 1 Drops OPB BID 02/22/17 Reported Vitamin B-12 (Cyanocobalamin) 500 Mcg Tab 500 Mcg PO DAILY 02/22/17 Reported Celexa (Citalopram Hydrobromide) 40 Mg Tab 20 Mg PO DAILY 02/22/17 Reported 1/2 OF A 40 MG TABLET Brimonidine Tartrate 0.2 % Maria Victoria 1 Drop OPB BID 02/22/17 Reported Review of Systems Respiratory: No shortness of breath Cardiac: No chest pain Abdomen: No pain, No nausea, No vomiting Physical Exam Date Time Temp Pulse Resp B/P (MAP) Pulse Ox O2 Delivery O2 Flow Rate FiO2 02/23/17 09:31 Room Air 02/23/17 08:41 38.2 63 18 95/62 (73) 92 Room Air 02/23/17 00:00 Room Air 02/22/17 23:50 65 116/71 (86) 02/22/17 15:29 37.5 70 18 96/54 (68) 93 Room Air 02/22/17 14:25 64 18 96 Room Air 02/22/17 13:52 37.9 76 18 128/82 Room Air 02/22/17 12:51 74 02/22/17 12:49 37.9 02/22/17 10:45 76 18 128/82 96 Room Air General Appearance: no apparent distress Eyes: PERRL ENT: + pertinent finding (very hard of hearing) Neck: supple Respiratory/Chest: + decreased breath sounds Abdomen: normal bowel sounds, non tender, soft, no organomegaly Neurologic/Psych: alert, normal mood/affect, oriented x 3 Skin: normal color Laboratory Results Last 24 Hours Test 02/22/17 11:45 02/22/17 11:55 02/22/17 13:03 02/22/17 14:15 White Blood Count 4.50 K/uL Red Blood Count 4.20 M/uL Hemoglobin 14.3 g/dL Hematocrit 42.8 % Mean Corpuscular Volume 101.9 fL Mean Corpuscular Hemoglobin 34.0 pg Mean Corpuscular Hemoglobin Concent 33.4 g/dl Platelet Count 126 K/uL Mean Platelet Volume 11.5 fL Neutrophils (%) (Auto) 67.6 % Lymphocytes (%) (Auto) 18.0 % Monocytes (%) (Auto) 14.0 % Eosinophils (%) (Auto) 0.0 % Basophils (%) (Auto) 0.2 % Neutrophils # (Auto) 3.04 K/uL Lymphocytes # (Auto) 0.81 K/uL Monocytes # (Auto) 0.63 K/uL Eosinophils # (Auto) 0.00 K/uL Basophils # (Auto) 0.01 K/uL RDW Standard Deviation 52.6 fL RDW Coefficient of Variation 14.1 % Immature Granulocyte % (Auto) 0.2 % Immature Granulocyte # (Auto) 0.01 K/uL Sodium Level 136 mmol/L Potassium Level 4.3 mmol/L Chloride Level 104 mmol/L Carbon Dioxide Level 26 mmol/L Anion Gap 6.0 mmol/L Blood Urea Nitrogen 29 mg/dl Creatinine 1.52 mg/dl Estimated GFR () 47.7 Estimated GFR (Non- 41.2 BUN/Creatinine Ratio 18.8 Random Glucose 108 mg/dl Calcium Level 8.9 mg/dl Magnesium Level 2.3 mg/dl Total Bilirubin 1.2 mg/dl Direct Bilirubin 0.2 mg/dl Aspartate Amino Transf (AST/SGOT) 12 U/L Alanine Aminotransferase (ALT/SGPT) 18 U/L Alkaline Phosphatase 48 U/L Total Creatine Kinase 49 U/L Creatine Kinase MB < 0.5 ng/ml Creatine Kinase MB Ratio Total Protein 7.2 gm/dl Albumin 3.4 gm/dl Lipase 257 U/L Thyroid Stimulating Hormone (TSH) 1.190 uIu/ml Bedside Lactic Acid Venous 1.99 mmol/L Bedside Troponin I < 0.030 ng/ml Urine Color DK YELLOW Urine Appearance CLEAR Urine pH 5.0 Urine Specific [place] 1.025 Urine Protein 1+ Urine Glucose (UA) NEG Urine Ketones NEG Urine Occult Blood NEG Urine Nitrite NEG Urine Bilirubin NEG Urine Urobilinogen NEG Urine Leukocyte Esterase NEG Urine WBC (Auto) 0 /hpf Urine RBC (Auto) 0-4 /hpf Urine Hyaline Casts (Auto) 1-5 /lpf Urine Epithelial Cells (Auto) 5-10 /lpf Urine Bacteria (Auto) NEG Influenza Type A Antigen POS for Influ A Influenza Type B Antigen Neg for Influ B Test 02/22/17 14:48 02/22/17 16:02 02/22/17 16:52 02/23/17 02:43 Lactic Acid Level 1.9 mmol/L Ammonia 18.9 umol/L Troponin I < 0.015 ng/ml Vitamin B12 Level 622 pg/mL Folate 10.07 ng/mL Prothrombin Time 10.8 SECONDS Prothromb Time International Ratio 1.0 Activated Partial Thromboplast Time 34.8 SECONDS Partial Thromboplastin Ratio 1.3 White Blood Count 4.01 K/uL Red Blood Count 4.02 M/uL Hemoglobin 13.9 g/dL Hematocrit 40.9 % Mean Corpuscular Volume 101.7 fL Mean Corpuscular Hemoglobin 34.6 pg Mean Corpuscular Hemoglobin Concent 34.0 g/dl Platelet Count 103 K/uL Mean Platelet Volume 10.8 fL Neutrophils (%) (Auto) 61.0 % Lymphocytes (%) (Auto) 25.2 % Monocytes (%) (Auto) 13.2 % Eosinophils (%) (Auto) 0.2 % Basophils (%) (Auto) 0.2 % Neutrophils # (Auto) 2.44 K/uL Lymphocytes # (Auto) 1.01 K/uL Monocytes # (Auto) 0.53 K/uL Eosinophils # (Auto) 0.01 K/uL Basophils # (Auto) 0.01 K/uL RDW Standard Deviation 51.5 fL RDW Coefficient of Variation 13.8 % Immature Granulocyte % (Auto) 0.2 % Immature Granulocyte # (Auto) 0.01 K/uL Sodium Level 138 mmol/L Potassium Level 4.2 mmol/L Chloride Level 107 mmol/L Carbon Dioxide Level 26 mmol/L Anion Gap 5.0 mmol/L Blood Urea Nitrogen 26 mg/dl Creatinine 1.33 mg/dl Est Creatinine Clear Calc Drug Dose 31.6 ml/min Estimated GFR () 56.1 Estimated GFR (Non- 48.4 BUN/Creatinine Ratio 19.6 Random Glucose 68 mg/dl Calcium Level 8.4 mg/dl Magnesium Level 2.0 mg/dl Total Bilirubin 1.2 mg/dl Aspartate Amino Transf (AST/SGOT) 15 U/L Alanine Aminotransferase (ALT/SGPT) 16 U/L Alkaline Phosphatase 44 U/L Total Protein 6.6 gm/dl Albumin 3.2 gm/dl Globulin 3.4 gm/dl Albumin/Globulin Ratio 0.9 Test 02/23/17 04:57 Bedside Glucose 169 mg/dl Impression Patient is a 86 year old male w/ dementia admitted for mental status changes and bloody diarrhea x 5 episodes, no clots. Pt is without abdominal pain, nausea , vomiting, no melena. He was not agreeable to a rectal exam. He takes a daily ASA, no other NSAIDs, no anticoagulation. He is hypotensive, febrile. Labs stable. Differentials hemorrhoidal, diverticular, ischemic. Plan c.diff negative follow up stool culture trend H&H transfuse PRN monitor stools CT abd/pelvis w/ IV/PO - will assess for diverticular disease - will assess for evidence of inflammatory changes After discussion with pt daughter, Angy, she would not like to proceed with any endoscopic evaluation Please call with any questions or concerns. I have seen and examined the patient with GORDO Rankin whose note reflects our findings and plan.
--- NOTE | 2017-02-23 11:45 | Progress Note ---
Progress Note Date of Service Feb 23, 2017. Progress Note Subjective / Objective Overnight patient had blood in bowel movement. Patient was started on ceftriaxone/flagyl in case of colitis I have seen and examined the patient this AM. Patient as per nursing staff is hard of hearing with visual impairments. As per patient's daughter Angy Lugo on the phone [phone], the patient has been having dementia for 4 years. Patient at bedside was sleeping and when woken up he was able to locate his head to the direction of medical provider but would not speak. When attempted to examine the patient to listen to his chest, patient pulled the covers up Patient seen again after nurse reports bowel movement in bed with blood dripping to floor. Patient examined again with bowel sounds present. Have attempted to call patient's daughter to obtain consent for blood transfusion. As per the patient's nurse patient appears to have declined blood transfusion. In the context of patient's dementia of 4 years, the patient's daughter does not think he understands what was being explained to him The patient's daughter will come in to meet with the medical team today to discuss goals of care. There is no blood transfusion consent at this time. Patient's daughter did affirm the living will of do not chest compressions and do not intubate. Code Status changed from Level 1 to Level 5 DNR/DNI at this time Palliative consult requested. Repeat CBC labs to be drawn after this second observed episode of blood with bowel movements
[2017-02-23 12:39] LABS: HEMATOCRIT 40.2 % (42-52)
[2017-02-23 13:04] LABS: ALB/GLOB RATIO 0.9 (0.9-2); BUN/CREATININE RATIO 16.2 (10-20); CALCIUM 8.1 mg/dl (8.5-10.1); CREATININE 1.29 mg/dl (0.60-1.40); POTASSIUM 4.1 mmol/L (3.5-5.1)
[2017-02-23] MEDS ORDERED: OPTIRAY 320 IV PRN (13:15)
--- NOTE | 2017-02-23 13:20 | DIAGNOSTIC IMAGING REPORT ---
ABD/PELVIS IV AND ORAL CONT CT DOSE: 686.31 mGycm HISTORY: Rectal bleeding rectal bleeding TECHNIQUE: Multiaxial CT images of the abdomen and pelvis were performed following the use of intravenous and oral contrast. A dose lowering technique was utilized adhering to the principles of ALARA. COMPARISON STUDY: None. FINDINGS: Minimal bibasilar atelectasis. Liver enhances uniformly as is the spleen. Gallbladder is moderately distended with multiple gallstones noted. Pancreas appears uniform. Abdominal aorta shows evidence for atelectatic change and ectasia. Pelvic arterial vasculature shows similar ectasia and atherosclerotic change. There are several bilateral renal cysts. No evidence renal hydronephrosis. Bowel pattern is considered nonobstructive. There is wall thickening of the sigmoid colon associated with multiple diverticuli. This appearance is consistent with that of chronic diverticulosis. Moderate prostatic enlargement. Moderate bladder wall thickening. Multiple calcified stones within the bladder. Evaluation for luminal defects is problematic due to the absence of oral contrast. IMPRESSION: 1. Moderately compromised exam due to the absence of oral contrast. 2. Multiple bladder calculi with the bladder demonstrating generalized wall thickening. 3. Prostatic enlargement. 4. Chronic sigmoid diverticulosis. 5. Bilateral renal cysts. 6. Multiple gallstones within a slightly distended gallbladder. 7. Atherosclerotic change and ectasia of the abdominal aorta and pelvic arterial vasculature The above report was generated using voice recognition software. It may contain grammatical, syntax or spelling errors. Electronically signed by: Thang Meek M.D. 02/23/2017 1:19 PM Dictated Date/Time: 02/23/2017 1:12 PM
[2017-02-23 15:30] VITALS: BP 112/76; PULSE 64; TEMP 37.1; O2SAT 92
[2017-02-23 15:36] LABS: HEMATOCRIT 41.7 % (42-52); MEAN CELL VOLUME 100.5 fL (80-100); MEAN CORPUSCULAR HEMOGLOBIN 32.5 pg (25-34); MEAN PLATELET VOLUME 11.4 fL (7.4-10.4); PLATELET COUNT 111 K/uL (130-400); RED BLOOD COUNT 4.15 M/uL (4.7-6.1); WHITE BLOOD COUNT 3.33 K/uL (4.8-10.8)
--- NOTE | 2017-02-23 15:46 | Palliative Care Consultation ---
Consultation Date of Consultation: Feb 23, 2017. Requesting Physician: Dr. Mcgee Attending Physician: Dr. Mcgee Reason for Consultation: Goals of care History of Present Illness This 86 year old male patient with PMH advanced dementia and others listed below presented to the ED yesterday with c/o increased confusion and weakness. History obtained from record and from daughter, Yola, at bedside. Patient does have advanced dementia requiring 24/7 care for safety, but he is normally able to walk, talk, do most ADL independently, is normally continent of bowel and bladder. The week prior to arrival, patient was increasingly confused, agitated , and weak. Upon arrival, he was noted to be febrile and positive for influenza. Since admission, patient has had several episodes of bright red bleeding from rectum. His hemoglobin has dropped from 14.3 to 13.6, not significant enough for blood transfusion. GI was consulted. KUB shows no obstruction. No plans for coloscopy at this time after GI spoke with patient's daughter Yola and given that his vitals and hgb are stable. There was discussion and question of patient's goals of care/how aggressively he'd want to be treated/code status. Palliative care is consulted. I met with patient, daughter Yola, and Dr. Mcgee in room 263-2. Patient was initially sleeping soundly, but when nurse tried to attach his IV, he became agitated and was swinging at nurse. Yola Lugo is patient's daughter and POA. She was tearful during our conversation and having a difficult time deciding what is best for her father. She brought a copy of patient's living will which states he is a DNR/DNI, but does not have any directives as far as blood transfusion (if he should need it during hospitalization). I discussed with daughter that living kim only take effect when patient is truly end-stage , which I'm not sure we can say at this time. While he is in quite a debilitated state now, it sounds like typically he is about a 6B-6C on FAST scale, which is not end stage. He normally is much more coherent and less agitated, normally has a better quality of life than he currently does while in hospital. At any rate, we also discussed that you do not need to be at end- stage to make decisions on not receiving aggressive care. After conversation, Yola does think she would want to try blood transfusion if hgb drops, but really does want to avoid invasive procedures such as colonoscopy. ROS and physical exam not done at this time due to patient agitation and combativeness. Past Medical/Surgical History Medical History: Advanced dementia Legally blind BARROW Htn Hypothyroidism Hemorrhoids Social History Smoking Status: Unknown if Ever Smoked History of Alcohol Use: No Drug Use: none Marital Status: Housing Status: other (Lives at home with 24/7 care) Occupation Status: retired Review of Systems unable to obtain due to mental status Allergies Coded Allergies: No Known Allergies (Unverified , 02/22/17) Medications Current Inpatient Medications Medications (Trade) Dose Ordered Sig/Reid Route Start Time Stop Time Status Last Admin Dose Admin Ondansetron HCl (Zofran Inj) 4 mg Q6H PRN IV 02/22/17 14:30 03/24/17 14:29 Brimonidine Tartrate (Alphagan 0.2% Soln) 1 drops BID OPB 02/22/17 21:00 03/24/17 20:59 Cholecalciferol (Vitamin D Tab) 2,000 inter.unit DAILY PO 02/23/17 09:00 03/25/17 08:59 Citalopram Hydrobromide (celeXA TAB) 20 mg DAILY PO 02/23/17 09:00 03/25/17 08:59 Cyanocobalamin (Vitamin B-12 Tab) 500 mcg DAILY PO 02/23/17 09:00 03/25/17 08:59 Donepezil HCl (Aricept Tab) 10 mg DAILY PO 02/23/17 09:00 03/25/17 08:59 Dorzolamide/ Timolol (Cosopt Op Soln) 1 drops BID OPB 02/22/17 21:00 03/24/17 20:59 Latanoprost (Xalatan Oph Soln) 1 drops HS OPB 02/22/17 21:00 03/24/17 20:59 Levothyroxine Sodium (Synthroid Tab) 50 mcg DAILYBB PO 02/23/17 06:30 03/25/17 06:59 Lisinopril (Zestril Tab) 5 mg DAILY PO 02/23/17 09:00 03/25/17 08:59 Enteral Nutritional Formula (Boost) 1 can BIDM PO 02/22/17 17:00 03/24/17 17:59 Miscellaneous (Iv Fluids Completed) 1 ea PRN PRN N/A 02/22/17 15:15 02/22/18 15:14 Heparin Sodium (Porcine) (Heparin Sq 5000 Unit/0.5ml) 5,000 unit Q12 SQ 02/22/17 21:00 03/24/17 20:59 Future Hold 02/22/17 22:06 5,000 UNIT Haloperidol Lactate (Haldol Inj) 2 mg Q2H PRN IM 02/23/17 00:00 03/25/17 00:00 02/23/17 02:27 2 MG Haloperidol (Haldol Tab) 2 mg Q4H PRN PO 02/23/17 00:00 03/25/17 00:00 Ceftriaxone Sodium 1 gm/ Dextrose 50 ml @ 100 mls/hr Q24H IV 02/23/17 03:30 03/05/17 03:29 02/23/17 03:46 100 MLS/HR Metronidazole 500 mg/Prmx 100 ml @ 100 mls/hr Q8H IV 02/23/17 04:00 03/05/17 03:59 02/23/17 14:10 100 MLS/HR Dextrose 1,000 ml @ 50 mls/hr Q20H IV 02/23/17 03:45 03/25/17 03:44 02/23/17 04:17 50 MLS/HR Ioversol (Optiray 320) 111 ml UD PRN IV 02/23/17 13:15 02/27/17 13:14 Physical Exam Date Time Temp Pulse Resp B/P (MAP) Pulse Ox O2 Delivery O2 Flow Rate FiO2 02/23/17 09:31 Room Air 02/23/17 08:41 38.2 63 18 95/62 (73) 92 Room Air 02/23/17 00:00 Room Air 02/22/17 23:50 65 116/71 (86) 02/22/17 15:29 37.5 70 18 96/54 (68) 93 Room Air General Appearance: no apparent distress, + thin, + pertinent finding ( chronically ill-appearing) ENT: + pertinent finding (hard of hearing) Neck: no JVD Respiratory: no respiratory distress Neurologic/Psychiatric: + disoriented, + pertinent finding (agitated) Skin: + pertinent finding (scattered ecchymosis) Laboratory Results Last 24 Hours Test 02/22/17 16:02 02/22/17 16:52 02/23/17 02:43 02/23/17 04:57 Vitamin B12 Level 622 pg/mL Folate 10.07 ng/mL Prothrombin Time 10.8 SECONDS Prothromb Time International Ratio 1.0 Activated Partial Thromboplast Time 34.8 SECONDS Partial Thromboplastin Ratio 1.3 White Blood Count 4.01 K/uL Red Blood Count 4.02 M/uL Hemoglobin 13.9 g/dL Hematocrit 40.9 % Mean Corpuscular Volume 101.7 fL Mean Corpuscular Hemoglobin 34.6 pg Mean Corpuscular Hemoglobin Concent 34.0 g/dl Platelet Count 103 K/uL Mean Platelet Volume 10.8 fL Neutrophils (%) (Auto) 61.0 % Lymphocytes (%) (Auto) 25.2 % Monocytes (%) (Auto) 13.2 % Eosinophils (%) (Auto) 0.2 % Basophils (%) (Auto) 0.2 % Neutrophils # (Auto) 2.44 K/uL Lymphocytes # (Auto) 1.01 K/uL Monocytes # (Auto) 0.53 K/uL Eosinophils # (Auto) 0.01 K/uL Basophils # (Auto) 0.01 K/uL RDW Standard Deviation 51.5 fL RDW Coefficient of Variation 13.8 % Immature Granulocyte % (Auto) 0.2 % Immature Granulocyte # (Auto) 0.01 K/uL Sodium Level 138 mmol/L Potassium Level 4.2 mmol/L Chloride Level 107 mmol/L Carbon Dioxide Level 26 mmol/L Anion Gap 5.0 mmol/L Blood Urea Nitrogen 26 mg/dl Creatinine 1.33 mg/dl Est Creatinine Clear Calc Drug Dose 31.6 ml/min Estimated GFR () 56.1 Estimated GFR (Non- 48.4 BUN/Creatinine Ratio 19.6 Random Glucose 68 mg/dl Calcium Level 8.4 mg/dl Magnesium Level 2.0 mg/dl Total Bilirubin 1.2 mg/dl Aspartate Amino Transf (AST/SGOT) 15 U/L Alanine Aminotransferase (ALT/SGPT) 16 U/L Alkaline Phosphatase 44 U/L Total Protein 6.6 gm/dl Albumin 3.2 gm/dl Globulin 3.4 gm/dl Albumin/Globulin Ratio 0.9 Bedside Glucose 169 mg/dl Test 02/23/17 12:21 02/23/17 14:53 Hemoglobin 13.6 g/dL Hematocrit 40.2 % Sodium Level 137 mmol/L Potassium Level 4.1 mmol/L Chloride Level 106 mmol/L Carbon Dioxide Level 25 mmol/L Anion Gap 6.0 mmol/L Blood Urea Nitrogen 21 mg/dl Creatinine 1.29 mg/dl Est Creatinine Clear Calc Drug Dose 32.6 ml/min Estimated GFR () 58.2 Estimated GFR (Non- 50.2 BUN/Creatinine Ratio 16.2 Random Glucose 87 mg/dl Calcium Level 8.1 mg/dl Total Bilirubin 0.8 mg/dl Aspartate Amino Transf (AST/SGOT) 26 U/L Alanine Aminotransferase (ALT/SGPT) 16 U/L Alkaline Phosphatase 40 U/L Total Protein 6.5 gm/dl Albumin 3.0 gm/dl Globulin 3.5 gm/dl Albumin/Globulin Ratio 0.9 Chemistry Specimen Hemolysis Assessment & Plan Problem list: Altered mental status- encephalopathy superimposed on dementia Advanced dementia, about 6B-C on FAST scale at his baseline from what daughter reports. Lower GI bleed, BRBPR x4-5 episodes. Hgb stable Influenza A Goals of care (Z51.5) Palliative care recs: -As discussed with patient's daughter Yola and Dr. Mcgee, patient is level 5 DNR. -Yola would likely be okay with blood transfusions if needed, at least a trial. She'd like some time to read over the blood consent and will sign when ready. -Yola states she would really like to avoid any invasive testing/procedures such as coloscopy if possible. -Patient has 24/7 caregivers at home and she'd like to get him back there. POLST form would probably be beneficial at this point which I will offer closer to time of discharge. -Difficult to say where patient is at with his illness considering he is not at baseline, but certainly is frail enough that something like a bout of influenza and a GI bleed could really set him back. Further goals of care to be determined based on hospital course. Thank you kindly for this consult. I will follow during hospitalization.
[2017-02-23 15:54] LABS: MEAN CORPUSCULAR HGB CONC 32.4 g/dl (32-36)
[2017-02-23] MEDS: LATANOPROST 0.005% OP SOLN 2.5 ML BTL OPB SCH (21:00)
[2017-02-24] MEDS: DEXTROSE 5% 1000ML 1,000 ML IV SCH (03:01)
[2017-02-24] MEDS: METRONIDAZOLE / NSS 500 MG in PREMIXED NSS 100 ML IV SCH ×3 (03:30→20:12)
[2017-02-24] MEDS: LEVOTHYROXINE 50 MCG TAB PO SCH (05:40)
[2017-02-24] MEDS: BOOST VANILLA PO SCH ×4 (08:00→17:00)
[2017-02-24 08:37] LABS: BASO % 0.4 %; BASO ABS # 0.01 K/uL (0-0.2); COMPLETE YES; HEMATOCRIT 37.8 % (42-52); LYMPH % 32.9 %; LYMPH ABS # 0.82 K/uL (1.2-3.4); MEAN CELL VOLUME 99.5 fL (80-100); MEAN CORPUSCULAR HEMOGLOBIN 33.9 pg (25-34); MEAN CORPUSCULAR HGB CONC 34.1 g/dl (32-36); MEAN PLATELET VOLUME 11.1 fL (7.4-10.4); MONO % 14.9 %; NEUT % 51.8 %; PLATELET COUNT 110 K/uL (130-400); WHITE BLOOD COUNT 2.49 K/uL (4.8-10.8)
[2017-02-24 09:00] LABS: BUN/CREATININE RATIO 13.2 (10-20); CALCIUM 8.2 mg/dl (8.5-10.1); CREATININE 1.14 mg/dl (0.60-1.40); POTASSIUM 3.5 mmol/L (3.5-5.1)
[2017-02-24] MEDS: CITALOPRAM 20 MG TAB PO SCH (09:00)
[2017-02-24] MEDS: DONEPEZIL HCL 10 MG TAB PO SCH (09:00)
[2017-02-24] MEDS: CHOLECALCIFEROL 1000 INTER.UNIT TAB PO SCH (09:00)
[2017-02-24] MEDS: LISINOPRIL 5 MG TAB PO SCH (09:00)
[2017-02-24] MEDS: BRIMONIDINE TARTRATE 0.2% 5ML OPB SCH ×2 (09:00→20:41)
[2017-02-24] MEDS: CYANOCOBALAMIN 500 MCG TAB (VIT B-12) PO SCH (09:00)
[2017-02-24] MEDS: DORZOLAMIDE/TIMOLOL 22.3/6.8MG/ML 10 ML BTL OPB SCH ×2 (09:00→20:41)
--- NOTE | 2017-02-24 10:32 | Progress Note ---
Progress Note Date of Service Feb 24, 2017. Progress Note Subjective: Patient seen and examined this AM. Patient apparently has another witnessed episode of blood per rectum in the clinical study manager hours On physical Exam: patient is arousable however like yesterday, patient does not really interact with medical exam, still holds on to the bed sheets close to his chest Lungs sound clear to auscultation Heart Rate is regular Abdomen is soft, and patient does not react with pain or guarding when abdomen is palpated No lower extremity edema Assessment: This is an 86 year old M who was sent to hospital by family because he was less active at home and less oral intake. Since being evaluated in the hospital patient has had low grade fever which initially was 37.9 C (100.2 F) to 38.2 C ( 100.76 F) from date of admission to yesterday 02/23/17. However since date of admission, patient with multiple episodes of blood per rectum. Multiple CBCs have been performed and while hemoglobin has been decreasing, there have not been any substantially large decreases in hemoglobin due to GI blood loss anemia. Patient has history of hemorrhoids. However it is unclear why he has multiple episodes of bleeds which when they occur leads to spotting of blood over the floor. Abdomen CT without adequate PO contrast (due to the patient not drinking enough contrast) was performed and appears to be mostly benign 1. Moderately compromised exam due to the absence of oral contrast. 2. Multiple bladder calculi with the bladder demonstrating generalized wall thickening. 3. Prostatic enlargement. 4. Chronic sigmoid diverticulosis. 5. Bilateral renal cysts. 6. Multiple gallstones within a slightly distended gallbladder. 7. Atherosclerotic change and ectasia of the abdominal aorta and pelvic arterial vasculature There is no obvious imaging findings of colitis, however patient has been empirically covered for that differential diagnosis with IV Flagyl since . Ceftriaxone was given one time on 02/23/17 but no evidence of UTI and was discontinued Since some antibiotics initiated, the vitals today with lower body temperatures Despite presence of gallstones, no obvious signs for cholecystis Blood culture from 02/22/17 negative, Stool cultures negative, C.difficile negative Will continue IV Flagyl for now Hgb 14.3 to 12.9 GI has been following the patient's case. Awaiting further recommendations for management of blood loss and whether other antibiotic is recommended for possible colitis vs diverticulitis Hypertension history: blood pressure controlled, hold lisinopril due to blood loss and to avoid hypotension Electrolytes / Hydration Continue with IV fluids with Dextrose as patient with minimal PO intake, Clear liquid diet for now in context of blood per rectum, Serum potassium 3.5 and patient to get IV potassium replacements of 10 meq x 3 doses today, Check serum magnesium Hypothyroidism Continue home dosed Levothyroxine Dementia / Mood Continue Donepezil, Citalopram DVT ppx: SCD Palliative Care has been consulted to follow with patient's family goals of care as patient has history of dementia, has living will and next of kin is: Angy Lugo on the phone [phone] Disposition: Code Status is DNR/ DNI
--- NOTE | 2017-02-24 10:39 | Gastroenterology Progress Note ---
Progress Note Date of Service: Feb 24, 2017 Subjective Pt evaluation today including: conversation w/ patient, physical exam, chart review, lab review Pt was seen and evaluated, chart reviewed. Labs reviewed. No white count, 5 pt drop in hematocrit, nurses endorse continued GI bleeding - BRB. There has been 2 episodes of BRB w/ clots since he was last evaluated. No melena. The pt was resistant to exam, but denies any abdominal pain, chest pain, SOB. ROS otherwise not obtained due to pt mental status. CT without evidence of mass or lesion. He does have diverticulosis. CT ABD/PELVIS 02/24/17: Moderately compromised exam due to the absence of oral contrast. Multiple bladder calculi with the bladder demonstrating generalized wall thickening. Prostatic enlargement. Chronic sigmoid diverticulosis. Bilateral renal cysts. Multiple gallstones within a slightly distended gallbladder. Atherosclerotic change and ectasia of the abdominal aorta and pelvic arterial vasculature Medications Current Inpatient Medications Medications (Trade) Dose Ordered Sig/Reid Route Start Time Stop Time Status Last Admin Dose Admin Ondansetron HCl (Zofran Inj) 4 mg Q6H PRN IV 02/22/17 14:30 03/24/17 14:29 Brimonidine Tartrate (Alphagan 0.2% Soln) 1 drops BID OPB 02/22/17 21:00 03/24/17 20:59 Cholecalciferol (Vitamin D Tab) 2,000 inter.unit DAILY PO 02/23/17 09:00 03/25/17 08:59 Citalopram Hydrobromide (celeXA TAB) 20 mg DAILY PO 02/23/17 09:00 03/25/17 08:59 Cyanocobalamin (Vitamin B-12 Tab) 500 mcg DAILY PO 02/23/17 09:00 03/25/17 08:59 Donepezil HCl (Aricept Tab) 10 mg DAILY PO 02/23/17 09:00 03/25/17 08:59 Dorzolamide/ Timolol (Cosopt Op Soln) 1 drops BID OPB 02/22/17 21:00 03/24/17 20:59 Latanoprost (Xalatan Oph Soln) 1 drops HS OPB 02/22/17 21:00 03/24/17 20:59 Levothyroxine Sodium (Synthroid Tab) 50 mcg DAILYBB PO 02/23/17 06:30 1/13/18 06:59 Lisinopril (Zestril Tab) 5 mg DAILY PO 02/23/17 09:00 03/25/17 08:59 Enteral Nutritional Formula (Boost) 1 can BIDM PO 02/22/17 17:00 03/24/17 17:59 Miscellaneous (Iv Fluids Completed) 1 ea PRN PRN N/A 02/22/17 15:15 02/22/18 15:14 Heparin Sodium (Porcine) (Heparin Sq 5000 Unit/0.5ml) 5,000 unit Q12 SQ 02/22/17 21:00 03/24/17 20:59 Future Hold 02/22/17 22:06 5,000 UNIT Haloperidol Lactate (Haldol Inj) 2 mg Q2H PRN IM 02/23/17 00:00 03/25/17 00:00 02/23/17 02:27 2 MG Haloperidol (Haldol Tab) 2 mg Q4H PRN PO 02/23/17 00:00 03/25/17 00:00 Metronidazole 500 mg/Prmx 100 ml @ 100 mls/hr Q8H IV 02/23/17 04:00 03/05/17 03:59 02/24/17 03:30 100 MLS/HR Dextrose 1,000 ml @ 50 mls/hr Q20H IV 02/23/17 03:45 03/25/17 03:44 02/24/17 03:01 50 MLS/HR Ioversol (Optiray 320) 111 ml UD PRN IV 02/23/17 13:15 02/27/17 13:14 Potassium Chloride 10 meq/ Prmx 100 ml @ 100 mls/hr Q1H IV 02/24/17 11:00 02/24/17 13:59 Objective Vital Signs Date Time Temp Pulse Resp B/P (MAP) Pulse Ox O2 Delivery O2 Flow Rate FiO2 02/24/17 08:00 Room Air 02/24/17 00:00 Room Air 02/23/17 20:00 Room Air 02/23/17 16:00 Room Air 02/23/17 15:30 37.1 64 18 112/76 (88) 92 Room Air Physical Exam General Appearance: no apparent distress Eyes: PERRL ENT: + pertinent finding (very hard of hearing) Cardiovascular: regular rate, rhythm Abdomen: normal bowel sounds, non tender, soft, no organomegaly Neurologic/Psych: alert Skin: normal color Laboratory Results Last 24 Hours Test 02/23/17 12:21 02/23/17 15:15 02/23/17 16:14 02/23/17 20:17 Hemoglobin 13.6 g/dL 13.5 g/dL Hematocrit 40.2 % 41.7 % Sodium Level 137 mmol/L Potassium Level 4.1 mmol/L Chloride Level 106 mmol/L Carbon Dioxide Level 25 mmol/L Anion Gap 6.0 mmol/L Blood Urea Nitrogen 21 mg/dl Creatinine 1.29 mg/dl Est Creatinine Clear Calc Drug Dose 32.6 ml/min Estimated GFR () 58.2 Estimated GFR (Non- 50.2 BUN/Creatinine Ratio 16.2 Random Glucose 87 mg/dl Calcium Level 8.1 mg/dl Total Bilirubin 0.8 mg/dl Aspartate Amino Transf (AST/SGOT) 26 U/L Alanine Aminotransferase (ALT/SGPT) 16 U/L Alkaline Phosphatase 40 U/L Total Protein 6.5 gm/dl Albumin 3.0 gm/dl Globulin 3.5 gm/dl Albumin/Globulin Ratio 0.9 Chemistry Specimen Hemolysis White Blood Count 3.33 K/uL Red Blood Count 4.15 M/uL Mean Corpuscular Volume 100.5 fL Mean Corpuscular Hemoglobin 32.5 pg Mean Corpuscular Hemoglobin Concent 32.4 g/dl RDW Standard Deviation 50.3 fL RDW Coefficient of Variation 13.6 % Platelet Count 111 K/uL Mean Platelet Volume 11.4 fL Bedside Glucose 95 mg/dl 87 mg/dl Test 02/24/17 07:46 02/24/17 08:15 02/24/17 08:29 Bedside Glucose 92 mg/dl White Blood Count 2.49 K/uL Red Blood Count 3.80 M/uL Hemoglobin 12.9 g/dL Hematocrit 37.8 % Mean Corpuscular Volume 99.5 fL Mean Corpuscular Hemoglobin 33.9 pg Mean Corpuscular Hemoglobin Concent 34.1 g/dl Platelet Count 110 K/uL Mean Platelet Volume 11.1 fL Neutrophils (%) (Auto) 51.8 % Lymphocytes (%) (Auto) 32.9 % Monocytes (%) (Auto) 14.9 % Eosinophils (%) (Auto) 0.0 % Basophils (%) (Auto) 0.4 % Neutrophils # (Auto) 1.29 K/uL Lymphocytes # (Auto) 0.82 K/uL Monocytes # (Auto) 0.37 K/uL Eosinophils # (Auto) 0.00 K/uL Basophils # (Auto) 0.01 K/uL RDW Standard Deviation 49.3 fL RDW Coefficient of Variation 13.7 % Immature Granulocyte % (Auto) 0.0 % Immature Granulocyte # (Auto) 0.00 K/uL Sodium Level 136 mmol/L Potassium Level 3.5 mmol/L Chloride Level 105 mmol/L Carbon Dioxide Level 23 mmol/L Anion Gap 8.0 mmol/L Blood Urea Nitrogen 15 mg/dl Creatinine 1.14 mg/dl Est Creatinine Clear Calc Drug Dose 36.9 ml/min Estimated GFR () 67.6 Estimated GFR (Non- 58.3 BUN/Creatinine Ratio 13.2 Random Glucose 89 mg/dl Calcium Level 8.2 mg/dl Total Bilirubin 1.1 mg/dl Aspartate Amino Transf (AST/SGOT) 30 U/L Alanine Aminotransferase (ALT/SGPT) 19 U/L Alkaline Phosphatase 40 U/L Total Protein 6.3 gm/dl Albumin 3.1 gm/dl Globulin 3.2 gm/dl Albumin/Globulin Ratio 1.0 Assessment and Plan Patient is a 86 year old male w/ dementia admitted for mental status changes and bloody diarrhea x 5 episodes, no clots. Pt is without abdominal pain, nausea , vomiting, no melena. He was not agreeable to a rectal exam. He takes a daily ASA, no other NSAIDs, no anticoagulation. He is hypotensive, febrile. Labs stable. Differentials hemorrhoidal, diverticular, ischemic. CT yesterday without evidence of mass, there is report of diverticulosis. Bleeding has persisted, w/ 2 episodes of BRB since he was last evaluated, HGB 12.9. Was evaluated by GORDO Ramsey w/ palliative care. Per review, pts daughter has re-inforced no invasive procedures, this is similar to my phone call with her yesterday. With his lack of abdominal symptoms and negative CT scan, he likely has a diverticular bleed. No role for colonoscopy. Hopefully bleeding will start to decrease over the course of the day and we can maintain conservative measures. If bleeding persists, can consider bleeding scan. - please page GI midlevel beeper when family is present - c.diff negative - stool culture negative - trend H&H - transfuse PRN - monitor stools - CT abd/pelvis - no evidence of mass - evidence of diverticulosis - Consider GI bleeding scan if bleeding persists GI will watch peripherally. Please call with any questions, concerns.
[2017-02-24] MEDS: POTASSIUM CHLR 10 MEQ / WTR 10 MEQ in PREMIXED WATER 100 ML IV SCH ×3 (10:47→13:37)
[2017-02-24] MEDS: LATANOPROST 0.005% OP SOLN 2.5 ML BTL OPB SCH (20:41)
[2017-02-24 22:33] VITALS: BP 113/69; PULSE 66; TEMP 37.9; O2SAT 97
[2017-02-25] MEDS: DEXTROSE 5% 1000ML 1,000 ML IV SCH (02:32)
[2017-02-25] MEDS: METRONIDAZOLE / NSS 500 MG in PREMIXED NSS 100 ML IV SCH ×3 (03:42→21:41)
[2017-02-25] MEDS: LEVOTHYROXINE 50 MCG TAB PO SCH ×2 (06:02→16:09)
[2017-02-25] MEDS: CYANOCOBALAMIN 500 MCG TAB (VIT B-12) PO SCH ×2 (07:53→16:10)
[2017-02-25] MEDS: DORZOLAMIDE/TIMOLOL 22.3/6.8MG/ML 10 ML BTL OPB SCH ×3 (07:53→16:12)
[2017-02-25] MEDS: CITALOPRAM 20 MG TAB PO SCH ×2 (07:53→16:10)
[2017-02-25] MEDS: DONEPEZIL HCL 10 MG TAB PO SCH ×2 (07:53→16:09)
[2017-02-25] MEDS: BOOST VANILLA PO SCH ×4 (07:53→15:59)
[2017-02-25] MEDS: CHOLECALCIFEROL 1000 INTER.UNIT TAB PO SCH ×2 (07:53→16:11)
[2017-02-25] MEDS: BRIMONIDINE TARTRATE 0.2% 5ML OPB SCH ×3 (07:53→16:12)
[2017-02-25 08:10] LABS: BASO % 0.3 %; BASO ABS # 0.01 K/uL (0-0.2); HEMATOCRIT 37.6 % (42-52); IG% 0.3 %; LYMPH % 31.1 %; LYMPH ABS # 0.94 K/uL (1.2-3.4); MEAN CELL VOLUME 98.9 fL (80-100); MEAN CORPUSCULAR HEMOGLOBIN 33.7 pg (25-34); MONO % 13.9 %; NEUT % 54.4 %; PLATELET COUNT 104 K/uL (130-400); WHITE BLOOD COUNT 3.02 K/uL (4.8-10.8)
[2017-02-25 08:33] LABS: COMPLETE YES
[2017-02-25 08:42] LABS: BUN/CREATININE RATIO 11.6 (10-20); CALCIUM 8.3 mg/dl (8.5-10.1); CREATININE 1.09 mg/dl (0.60-1.40); MAGNESIUM 1.9 mg/dl (1.8-2.4); POTASSIUM 4.2 mmol/L (3.5-5.1)
--- NOTE | 2017-02-25 11:07 | Progress Note ---
Progress Note Date of Service Feb 25, 2017. Progress Note Subjective: Patient had episode of blood per rectum overnight. Patient seen and examined this AM. On physical Exam: patient is arousable however like yesterday, patient does not really interact with medical exam, still holds on to the bed sheets close to his chest and prevents adequate physical exam of lungs and heart Lungs sound clear to auscultation Heart Rate is regular Abdomen is soft, and patient does not react with pain or guarding when abdomen is palpated No lower extremity edema Assessment: This is an 86 year old M who was sent to hospital by family because he was less active at home and less oral intake. Since being evaluated in the hospital patient has had low grade fever which initially was 37.9 C (100.2 F) to 38.2 C ( 100.76 F) from date of admission on 02/22/17 to yesterday 02/23/17. Labs in the ED for positive Influenza A. No respiratory symptoms. Patient has been breathing on room air. However since date of admission, patient with multiple episodes of blood per rectum. Multiple CBCs have been performed and while hemoglobin has been decreasing, there have not been any substantially large decreases in hemoglobin due to GI blood loss anemia. Patient has history of hemorrhoids, but bleeding patterns does not suggest hemorrhoid bleed. Abdomen CT without adequate PO contrast (due to the patient not drinking enough contrast) was performed and appears to be mostly benign 1. Moderately compromised exam due to the absence of oral contrast. 2. Multiple bladder calculi with the bladder demonstrating generalized wall thickening. 3. Prostatic enlargement. 4. Chronic sigmoid diverticulosis. 5. Bilateral renal cysts. 6. Multiple gallstones within a slightly distended gallbladder. 7. Atherosclerotic change and ectasia of the abdominal aorta and pelvic arterial vasculature There is no obvious imaging findings of colitis, however patient has been empirically covered for that differential diagnosis with IV Flagyl since . Ceftriaxone was given one time on 02/23/17 but no evidence of UTI and was discontinued Despite presence of gallstones, no obvious signs for cholecystitis Blood culture from 02/22/17 negative, Stool cultures negative, C.difficile negative Will continue IV Flagyl for now if diverticulitis, Will try Tamoflu for the Influenza but patient may be refusing oral medications Hgb 14.3 to 12.8 GI has been following the patient's case, possible that this is diverticular bleed and the GI service commented that there is no role for colonoscopy at this time, GI service recommended waiting for bleeding to stop vs nuclear bleed scan Hypertension history: blood pressure controlled, hold lisinopril due to blood loss and to avoid hypotension Electrolytes / Hydration Continue with IV fluids with Dextrose as patient with minimal PO intake, Clear liquid diet for now in context of blood per rectum Hypothyroidism Continue home dosed Levothyroxine Dementia / Mood Continue Donepezil, Citalopram DVT ppx: SCD Palliative Care has been consulted to follow with patient's family goals of care as patient has history of dementia, has living will and next of kin is: Angy Lugo on the phone [phone] Disposition: Code Status is DNR/ DNI
[2017-02-25] MEDS ORDERED: OSELTAMIVIR PHOSPHATE 75 MG CAP PO STA (11:09)
[2017-02-25] MEDS: OSELTAMIVIR PHOSPHATE SUSP 30 MG/5 ML UDP PO SCH ×2 (12:00→21:00)
[2017-02-25 14:47] VITALS: BP 100/70; PULSE 74; TEMP 37.5; O2SAT 97
[2017-02-25] MEDS: LATANOPROST 0.005% OP SOLN 2.5 ML BTL OPB SCH ×2 (16:11→16:12)
[2017-02-26] MEDS: METRONIDAZOLE / NSS 500 MG in PREMIXED NSS 100 ML IV SCH (03:30)
[2017-02-26] MEDS: LEVOTHYROXINE 50 MCG TAB PO SCH (06:30)
[2017-02-26 07:05] LABS: BASO % 0.5 %; BASO ABS # 0.02 K/uL (0-0.2); COMPLETE YES; HEMATOCRIT 35.1 % (42-52); IG% 0.2 %; LYMPH % 28.2 %; LYMPH ABS # 1.18 K/uL (1.2-3.4); MEAN CORPUSCULAR HEMOGLOBIN 34.1 pg (25-34); MEAN CORPUSCULAR HGB CONC 34.8 g/dl (32-36); MEAN PLATELET VOLUME 11.1 fL (7.4-10.4); MONO % 15.6 %; NEUT % 55.5 %; PLATELET COUNT 103 K/uL (130-400); RED BLOOD COUNT 3.58 M/uL (4.7-6.1); WHITE BLOOD COUNT 4.18 K/uL (4.8-10.8)
[2017-02-26 07:38] LABS: ALT/SGPT 26 U/L (12-78); BLOOD UREA NITROGEN 14 mg/dl (7-18); BUN/CREATININE RATIO 12.5 (10-20); CALCIUM 8.2 mg/dl (8.5-10.1); CARBON DIOXIDE 24 mmol/L (21-32); CHLORIDE 105 mmol/L (98-107); CREATININE 1.15 mg/dl (0.60-1.40); GLUCOSE 94 mg/dl (70-99); SODIUM 136 mmol/L (136-145)
[2017-02-26 07:43] LABS: ALB/GLOB RATIO 0.9 (0.9-2); ALKALINE PHOSPHATASE 36 U/L (45-117)
[2017-02-26 08:07] LABS: MEAN CELL VOLUME 98.4 fL (80-100); MEAN CORPUSCULAR HEMOGLOBIN 34.2 pg (25-34); RED BLOOD COUNT 3.66 M/uL (4.7-6.1); WHITE BLOOD COUNT 4.05 K/uL (4.8-10.8)
[2017-02-26 08:30] LABS: POTASSIUM 3.9 mmol/L (3.5-5.1)
[2017-02-26 08:45] LABS: MEAN CORPUSCULAR HGB CONC 34.7 g/dl (32-36); MEAN PLATELET VOLUME 11.2 fL (7.4-10.4); PLATELET COUNT 99 K/uL (130-400)
[2017-02-26 08:46] LABS: BASO % 0.7 %; BASO ABS # 0.03 K/uL (0-0.2); COMPLETE YES; ECHINOCYTES 1+; EOS % 0.2 %; LYMPH % 23.7 %; LYMPH ABS # 0.96 K/uL (1.2-3.4); MONO % 14.8 %; NEUT % 60.6 %; PLT ESTIMATE DECREASED
[2017-02-26] MEDS: OSELTAMIVIR PHOSPHATE SUSP 30 MG/5 ML UDP PO SCH (09:00)
[2017-02-26] MEDS: CYANOCOBALAMIN 500 MCG TAB (VIT B-12) PO SCH (09:37)
[2017-02-26] MEDS: CITALOPRAM 20 MG TAB PO SCH (09:37)
[2017-02-26] MEDS: DONEPEZIL HCL 10 MG TAB PO SCH (09:37)
[2017-02-26] MEDS: CHOLECALCIFEROL 1000 INTER.UNIT TAB PO SCH (09:38)
[2017-02-26] MEDS: BRIMONIDINE TARTRATE 0.2% 5ML OPB SCH (09:38)
[2017-02-26] MEDS: DORZOLAMIDE/TIMOLOL 22.3/6.8MG/ML 10 ML BTL OPB SCH (09:38)
[2017-02-26] MEDS: DEXTROSE 5% 1000ML 1,000 ML IV SCH (09:39)
--- NOTE | 2017-02-26 11:36 | Progress Note ---
Internal Med Progress Note Date of Service: Feb 26, 2017. Provider Documentation: Subjective: Patient did not have any further reported episodes of blood in stool overnight to today On physical Exam: General: patient generally sleeps in bed, is able to cooperate when medical staff has patient sit up in chair Lungs sound clear to auscultation Heart Rate is regular Abdomen is soft, and patient does not react with pain or guarding when abdomen is palpated No lower extremity edema ASSESSMENT & PLAN: This is an 86 year old M who was sent to hospital by family because he was less active at home and less oral intake. Since being evaluated in the hospital patient has had low grade fever which initially was 37.9 C (100.2 F) to 38.2 C ( 100.76 F) from date of admission on 02/22/17 to yesterday 02/23/17. Labs in the ED for positive Influenza A. No respiratory symptoms. Patient has been breathing on room air. However since date of admission, patient with multiple episodes of blood per rectum. Multiple CBCs have been performed and while hemoglobin has been decreasing, there have not been any substantially large decreases in hemoglobin due to GI blood loss anemia. Patient has history of hemorrhoids, but bleeding patterns does not suggest hemorrhoid bleed. Abdomen CT without adequate PO contrast (due to the patient not drinking enough contrast) was performed and appears to be mostly benign 1. Moderately compromised exam due to the absence of oral contrast. 2. Multiple bladder calculi with the bladder demonstrating generalized wall thickening. 3. Prostatic enlargement. 4. Chronic sigmoid diverticulosis. 5. Bilateral renal cysts. 6. Multiple gallstones within a slightly distended gallbladder. 7. Atherosclerotic change and ectasia of the abdominal aorta and pelvic arterial vasculature There is no obvious imaging findings of colitis, however patient has been empirically covered for that differential diagnosis with IV Flagyl since . Ceftriaxone was given one time on 02/23/17 but no evidence of UTI and was discontinued Despite presence of gallstones, no obvious signs for cholecystitis Blood culture from 02/22/17 negative, Stool cultures negative, C.difficile negative IV Flagyl to be stopped on 02/26/17 as patient's no longer having blood per rectum and has not had any significant body temperatures for fever Patient has been able to take oral Tamiflu for the Influenza on 02/25/17. Tamiflu to be continued on 02/26/17. Will give outpatient prescription GI has been following the patient's case, possible that this is diverticular bleed and the GI service commented that there is no role for colonoscopy at this time, GI service recommended waiting for bleeding to stop vs nuclear bleed scan Hgb 14.3 to 12.5 Hypertension history: blood pressure controlled, stop lisinopril to avoid hypotension Nutrition / Hydration Transition to oral diet of regular food Hypothyroidism Continue home dosed Levothyroxine Dementia / Mood Continue Donepezil, Citalopram Disposition: Discharge to Home Primary discharge diagnosis of: Diverticular bleed with anemia, Diverticular bleed resolved at this time, Influenza A positive and can continue Tamiflu medication for 3 more day with prescription provided Discharge instruction: Please have patient return to the emergency room if patient has high fevers, significant amount of blood in stool, loss of consciousness Vital Signs: Date Time Temp Pulse Resp B/P (MAP) Pulse Ox O2 Delivery O2 Flow Rate FiO2 02/26/17 10:26 Room Air 02/25/17 23:00 Room Air 02/25/17 19:00 Room Air 02/25/17 16:18 Room Air 02/25/17 14:47 37.5 74 18 100/70 (80) 97 Room Air Lab Results: Results Past 24 Hours Test 02/25/17 11:58 02/26/17 06:50 02/26/17 07:41 02/26/17 07:48 Range/Units Bedside Glucose 82 70-99 mg/dl White Blood Count 4.18 4.05 4.8-10.8 K/uL Red Blood Count 3.58 3.66 4.7-6.1 M/uL Hemoglobin 12.2 12.5 14.0-18.0 g/dL Hematocrit 35.1 36.0 42-52 % Mean Corpuscular Volume 98.0 98.4 80-100 fL Mean Corpuscular Hemoglobin 34.1 34.2 25-34 pg Mean Corpuscular Hemoglobin Concent 34.8 34.7 32-36 g/dl Platelet Count 103 99 130-400 K/uL Mean Platelet Volume 11.1 11.2 7.4-10.4 fL Neutrophils (%) (Auto) 55.5 60.6 % Lymphocytes (%) (Auto) 28.2 23.7 % Monocytes (%) (Auto) 15.6 14.8 % Eosinophils (%) (Auto) 0.0 0.2 % Basophils (%) (Auto) 0.5 0.7 % Neutrophils # (Auto) 2.32 2.45 1.4-6.5 K/uL Lymphocytes # (Auto) 1.18 0.96 1.2-3.4 K/uL Monocytes # (Auto) 0.65 0.60 0.11-0.59 K/uL Eosinophils # (Auto) 0.00 0.01 0-0.5 K/uL Basophils # (Auto) 0.02 0.03 0-0.2 K/uL RDW Standard Deviation 47.7 48.3 36.4-46.3 fL RDW Coefficient of Variation 13.3 13.5 11.5-14.5 % Immature Granulocyte % (Auto) 0.2 0.0 % Immature Granulocyte # (Auto) 0.01 0.00 0.00-0.02 K/uL Sodium Level 136 136-145 mmol/L Potassium Level 3.9 3.5-5.1 mmol/L Chloride Level 105 98-107 mmol/L Carbon Dioxide Level 24 21-32 mmol/L Anion Gap 7.0 3-11 mmol/L Blood Urea Nitrogen 14 7-18 mg/dl Creatinine 1.15 0.60-1.40 mg/dl Est Creatinine Clear Calc Drug Dose 36.6 ml/min Estimated GFR () 66.9 Estimated GFR (Non- 57.7 BUN/Creatinine Ratio 12.5 10-20 Random Glucose 94 70-99 mg/dl Calcium Level 8.2 8.5-10.1 mg/dl Total Bilirubin 1.0 0.2-1 mg/dl Aspartate Amino Transf (AST/SGOT) 42 15-37 U/L Alanine Aminotransferase (ALT/SGPT) 26 12-78 U/L Alkaline Phosphatase 36 45-117 U/L Total Protein 6.3 6.4-8.2 gm/dl Albumin 2.9 3.4-5.0 gm/dl Globulin 3.4 2.5-4.0 gm/dl Albumin/Globulin Ratio 0.9 0.9-2 Platelet Estimate DECREASED Echinocytes 1+
[2017-02-26] MEDS ORDERED: TMFUDL30 PO ×2 (11:45→15:27)
--- NOTE | 2017-02-26 11:55 | Discharge Instructions ---
Discharge Instructions Date of Service Feb 26, 2017. Admission Reason for Admission: Altered Mental Status, Dehydration Discharge Discharge Diagnosis / Problem: Influenza A positive, Diverticular bleed, Anemia Discharge Goals Goal(s): Improve function Activity Recommendations Activity Limitations: per Instructions/Follow-up section Shower/Bathe: no limitations . Instructions / Follow-Up Instructions / Follow-Up This is an 86 year old M who was sent to hospital by family because he was less active at home and less oral intake. Since being evaluated in the hospital patient has had low grade fever which initially was 37.9 C (100.2 F) to 38.2 C ( 100.76 F) from date of admission on 02/22/17 to yesterday 02/23/17. Labs in the ED for positive Influenza A. No respiratory symptoms. Patient has been breathing on room air. However since date of admission, patient with multiple episodes of blood per rectum. Multiple CBCs have been performed and while hemoglobin has been decreasing, there have not been any substantially large decreases in hemoglobin due to GI blood loss anemia. Patient has history of hemorrhoids, but bleeding patterns does not suggest hemorrhoid bleed. Abdomen CT without adequate PO contrast (due to the patient not drinking enough contrast) was performed and appears to be mostly benign 1. Moderately compromised exam due to the absence of oral contrast. 2. Multiple bladder calculi with the bladder demonstrating generalized wall thickening. 3. Prostatic enlargement. 4. Chronic sigmoid diverticulosis. 5. Bilateral renal cysts. 6. Multiple gallstones within a slightly distended gallbladder. 7. Atherosclerotic change and ectasia of the abdominal aorta and pelvic arterial vasculature There is no obvious imaging findings of colitis, however patient has been empirically covered for that differential diagnosis with IV Flagyl since . Ceftriaxone was given one time on 02/23/17 but no evidence of UTI and was discontinued Despite presence of gallstones, no obvious signs for cholecystitis Blood culture from 02/22/17 negative, Stool cultures negative, C.difficile negative IV Flagyl to be stopped on 02/26/17 as patient's no longer having blood per rectum and has not had any significant body temperatures for fever Patient has been able to take oral Tamiflu for the Influenza on 02/25/17. Tamiflu to be continued on 02/26/17. Will give outpatient prescription GI has been following the patient's case, possible that this is diverticular bleed and the GI service commented that there is no role for colonoscopy at this time, GI service recommended waiting for bleeding to stop vs nuclear bleed scan Hgb 14.3 to 12.5 Hypertension history: blood pressure controlled, stop lisinopril to avoid hypotension Nutrition / Hydration Transition to oral diet of regular food Hypothyroidism Continue home dosed Levothyroxine Dementia / Mood Continue Donepezil, Citalopram Disposition: Discharge to Home Primary discharge diagnosis of: Diverticular bleed with anemia, Diverticular bleed resolved at this time, Influenza A positive and can continue Tamiflu medication for 3 more day with prescription provided Patient to follow up with primary care doctor in the [facility] Discharge instruction: Please have patient return to the emergency room if patient has high fevers, significant amount of blood in stool, loss of consciousness Current Hospital Diet Patient's current hospital diet: Regular Diet Discharge Diet Recommended Diet: Regular Diet Pending Studies Studies pending at discharge: no Laboratory Results 02/26/17 07:41 Red Blood Count 3.66, Mean Corpuscular Volume 98.4, Mean Corpuscular Hemoglobin 34.2, Mean Corpuscular Hemoglobin Concent 34.7, Mean Platelet Volume 11.2, Neutrophils (%) (Auto) 60.6, Lymphocytes (%) (Auto) 23.7, Monocytes (%) (Auto) 14.8, Eosinophils (%) (Auto) 0.2, Basophils (%) (Auto) 0.7, Neutrophils # (Auto ) 2.45, Lymphocytes # (Auto) 0.96, Monocytes # (Auto) 0.60, Eosinophils # (Auto ) 0.01, Basophils # (Auto) 0.03 02/26/17 06:50 02/26/17 07:48 Test 02/22/17 11:45 02/22/17 11:55 02/22/17 13:03 02/22/17 14:15 Direct Bilirubin 0.2 mg/dl (0-0.2) Total Creatine Kinase 49 U/L (39-308) Creatine Kinase MB < 0.5 ng/ml (0.5-3.6) Creatine Kinase MB Ratio (0-3.0) Lipase 257 U/L (73-393) Thyroid Stimulating Hormone (TSH) 1.190 uIu/ml (0.300-4.500) Rapid Plasma Reagin NONREACTIVE (NONREACT) Bedside Lactic Acid Venous 1.99 mmol/L (0.90-1.70) Bedside Troponin I < 0.030 ng/ml (0-0.045) Urine Color DK YELLOW Urine Appearance CLEAR (CLEAR) Urine pH 5.0 (4.5-7.5) Urine Specific [place] 1.025 (1.000-1.030) Urine Protein 1+ (NEG) Urine Glucose (UA) NEG (NEG) Urine Ketones NEG (NEG) Urine Occult Blood NEG (NEG) Urine Nitrite NEG (NEG) Urine Bilirubin NEG (NEG) Urine Urobilinogen NEG (NEG) Urine Leukocyte Esterase NEG (NEG) Urine WBC (Auto) 0 /hpf (0-5) Urine RBC (Auto) 0-4 /hpf (0-4) Urine Hyaline Casts (Auto) 1-5 /lpf (0-5) Urine Epithelial Cells (Auto) 5-10 /lpf (0-5) Urine Bacteria (Auto) NEG (NEG) Influenza Type A Antigen POS for Influ A (NEG) Influenza Type B Antigen Neg for Influ B (NEG) Test 02/22/17 14:48 02/22/17 16:02 02/22/17 16:52 02/23/17 12:21 Lactic Acid Level 1.9 mmol/L (0.4-2.0) Ammonia 18.9 umol/L (11-32) Troponin I < 0.015 ng/ml (0-0.045) Vitamin B12 Level 622 pg/mL (211-911) Folate 10.07 ng/mL (>5.38) Prothrombin Time 10.8 SECONDS (9.0-12.0) Prothromb Time International Ratio 1.0 (0.9-1.1) Activated Partial Thromboplast Time 34.8 SECONDS (21.0-31.0) Partial Thromboplastin Ratio 1.3 Chemistry Specimen Hemolysis Test 02/25/17 07:46 02/25/17 11:58 02/26/17 06:50 02/26/17 07:41 Magnesium Level 1.9 mg/dl (1.8-2.4) Bedside Glucose 82 mg/dl (70-99) Anion Gap 7.0 mmol/L (3-11) Est Creatinine Clear Calc Drug Dose 36.6 ml/min Estimated GFR () 66.9 Estimated GFR (Non- 57.7 BUN/Creatinine Ratio 12.5 (10-20) Calcium Level 8.2 mg/dl (8.5-10.1) Total Bilirubin 1.0 mg/dl (0.2-1) Alanine Aminotransferase (ALT/SGPT) 26 U/L (12-78) Alkaline Phosphatase 36 U/L (45-117) Total Protein 6.3 gm/dl (6.4-8.2) Albumin 2.9 gm/dl (3.4-5.0) Globulin 3.4 gm/dl (2.5-4.0) Albumin/Globulin Ratio 0.9 (0.9-2) White Blood Count 4.05 K/uL (4.8-10.8) Red Blood Count 3.66 M/uL (4.7-6.1) Hemoglobin 12.5 g/dL (14.0-18.0) Hematocrit 36.0 % (42-52) Mean Corpuscular Volume 98.4 fL (80-100) Mean Corpuscular Hemoglobin 34.2 pg (25-34) Mean Corpuscular Hemoglobin Concent 34.7 g/dl (32-36) Platelet Count 99 K/uL (130-400) Mean Platelet Volume 11.2 fL (7.4-10.4) Neutrophils (%) (Auto) 60.6 % Lymphocytes (%) (Auto) 23.7 % Monocytes (%) (Auto) 14.8 % Eosinophils (%) (Auto) 0.2 % Basophils (%) (Auto) 0.7 % Neutrophils # (Auto) 2.45 K/uL (1.4-6.5) Lymphocytes # (Auto) 0.96 K/uL (1.2-3.4) Monocytes # (Auto) 0.60 K/uL (0.11-0.59) Eosinophils # (Auto) 0.01 K/uL (0-0.5) Basophils # (Auto) 0.03 K/uL (0-0.2) RDW Standard Deviation 48.3 fL (36.4-46.3) RDW Coefficient of Variation 13.5 % (11.5-14.5) Immature Granulocyte % (Auto) 0.0 % Immature Granulocyte # (Auto) 0.00 K/uL (0.00-0.02) Platelet Estimate DECREASED Echinocytes 1+ Test 02/26/17 07:48 Aspartate Amino Transf (AST/SGOT) 42 U/L (15-37) Date/Time Source Procedure Growth Status 02/22/17 11:50 Blood Blood Culture - Preliminary NO GROWTH TO DATE. Resulted 02/22/17 00:00 Stool C.difficile Toxin B Gene (PCR) - Final No C. difficile toxin B gene detected Complete Medical Emergencies . Who to Call and When: Medical Emergencies: If at any time you feel your situation is an emergency, please call 911 immediately. . Non-Emergent Contact Non-Emergency issues call your: Primary Care Provider . . "Provider Documentation" section prepared by Aristeo Mcgee. . VTE Core Measure Inpt VTE Proph given/why not?: SCD's
--- NOTE | 2017-02-26 11:57 | Discharge Summary ---
Discharge Summary Date of Service Feb 26, 2017. Discharge Summary Admission Date: Feb 23, 2017 at 14:52 Discharge Date: Feb 26, 2017 Discharge Disposition: Home Principal Diagnosis: Influenza A positive, Diverticular bleed, anemia Consultations: gastroenterology Medication Reconciliation New Medications: Oseltamivir Phosphate (Tamiflu) 6 Mg/Ml Rosangela 30 MG PO BID for 3 Days, #30 ML give 5 ml of this 6 mg/ml oral suspension twice a day for 3 days Continued Medications: Aspirin (Aspirin Ec) 81 Mg Tab 81 MG PO DAILY Brimonidine Tartrate (Brimonidine Tartrate) 0.2 % Maria Victoria 1 DROP OPB BID Cholecalciferol (Vitamin D) 1,000 Unit Tab 2000 UNITS PO DAILY Citalopram Hydrobromide (Celexa) 40 Mg Tab 20 MG PO DAILY 1/2 OF A 40 MG TABLET Cyanocobalamin (Vitamin B-12) 500 Mcg Tab 500 MCG PO DAILY Donepezil Hydrochloride (Aricept) 10 Mg Tab 1 TAB PO DAILY for 90 Days, #90 TAB 3 Refills Dorzolamide Hcl-Timolol Maleat (Cosopt Oph) 1 Maria Victoria Maria Victoria 1 DROPS OPB BID Enteral Nutrition Formula (Ensure) Liq 1 CAN PO UD Latanoprost (Xalatan 0.005% Oph Maria Victoria) 0.005 % Maria Victoria 1 DROPS OPB HS Levothyroxine Sodium (Synthroid) 50 Mcg Tab 50 MCG PO DAILY AT 0600 Melatonin (Melatonin) 5 Mg Tab 5 MG PO HS Discontinued Medications: Lisinopril (Prinivil) 5 Mg Tab 5 MG PO DAILY Admission Information HPI (per Admitting provider): This is an 86yo M with a PMH of advanced dementia, HTN, and DM who presents with increased confusion and agitation x 5 days. Patient lives at home and received 24 care by his daughters and 2 other care givers. At baseline, patient is verbal and responds to yes or no questions. Is alert and oriented x 2 and is able to ambulate without assistive devices. Has a healthy appetite and is continent of bowel and bladder. Starting on Monday evening, patient seemed more confused and agitated. Was speaking less than normal and his statements were not making sense. Daughter also states that patient has been sleeping more during the day but moving around at night. Is refusing PO intake of food and liquids. Has been urinating more frequently than normal and having some urinary incontinence. Has been having bowel movements but they are strained and infrequent over the past few weeks. HPI and ROS is limited due to patient's dementia/AMS. Also, patient was recently declared legally blind and is very hard of hearing. All history was obtained from daughter and caregiver. They state that patient has not complained of confusion, fever, chills, headache, chest pain, SOB, abd pain, nausea, vomiting over the past 5 days. Denies any hallucinations. Also denies any melena or hematochezia. Has a history of hemorrhoids. Physical Exam (per Admitting): General Appearance: + pertinent finding (Disheveled appearance, lethargic. Responded to some verbal commands. ) Head: normocephalic, atraumatic Eyes: normal inspection (legally blind bilaterally), PERRL, sclerae normal ENT: + pertinent finding (hard of hearing. refused to open mouth ) Neck: supple, no adenopathy, trachea midline Respiratory/Chest: chest non-tender, no respiratory distress, no accessory muscle use, + decreased breath sounds Cardiovascular: regular rate, rhythm, no murmur, normal peripheral pulses Abdomen/GI: soft, no organomegaly, + tenderness (TTP in LLQ. Otherwise non- tender) Extremities/Musculoskelatal: normal inspection, no calf tenderness, no pedal edema Neurologic/Psych: + pertinent finding (Responded to some commands but non- verbal at this time. Lethargic. ) Skin: normal color, warm/dry Hospital Course This is an 86 year old M who was sent to hospital by family because he was less active at home and less oral intake. Since being evaluated in the hospital patient has had low grade fever which initially was 37.9 C (100.2 F) to 38.2 C ( 100.76 F) from date of admission on 02/22/17 to yesterday 02/23/17. Labs in the ED for positive Influenza A. No respiratory symptoms. Patient has been breathing on room air. However since date of admission, patient with multiple episodes of blood per rectum. Multiple CBCs have been performed and while hemoglobin has been decreasing, there have not been any substantially large decreases in hemoglobin due to GI blood loss anemia. Patient has history of hemorrhoids, but bleeding patterns does not suggest hemorrhoid bleed. Abdomen CT without adequate PO contrast (due to the patient not drinking enough contrast) was performed and appears to be mostly benign 1. Moderately compromised exam due to the absence of oral contrast. 2. Multiple bladder calculi with the bladder demonstrating generalized wall thickening. 3. Prostatic enlargement. 4. Chronic sigmoid diverticulosis. 5. Bilateral renal cysts. 6. Multiple gallstones within a slightly distended gallbladder. 7. Atherosclerotic change and ectasia of the abdominal aorta and pelvic arterial vasculature There is no obvious imaging findings of colitis, however patient has been empirically covered for that differential diagnosis with IV Flagyl since . Ceftriaxone was given one time on 02/23/17 but no evidence of UTI and was discontinued Despite presence of gallstones, no obvious signs for cholecystitis Blood culture from 02/22/17 negative, Stool cultures negative, C.difficile negative IV Flagyl to be stopped on 02/26/17 as patient's no longer having blood per rectum and has not had any significant body temperatures for fever Patient has been able to take oral Tamiflu for the Influenza on 02/25/17. Tamiflu to be continued on 02/26/17. Will give outpatient prescription GI has been following the patient's case, possible that this is diverticular bleed and the GI service commented that there is no role for colonoscopy at this time, GI service recommended waiting for bleeding to stop vs nuclear bleed scan Hgb 14.3 to 12.5 Hypertension history: blood pressure controlled, stop lisinopril to avoid hypotension Nutrition / Hydration Transition to oral diet of regular food Hypothyroidism Continue home dosed Levothyroxine Dementia / Mood Continue Donepezil, Citalopram Disposition: Discharge to Home Primary discharge diagnosis of: Diverticular bleed with anemia, Diverticular bleed resolved at this time, Influenza A positive and can continue Tamiflu medication for 3 more day with prescription provided Patient to follow up with primary care doctor in the [facility] Discharge instruction: Please have patient return to the emergency room if patient has high fevers, significant amount of blood in stool, loss of consciousness Total time spent on discharge = 60 minutes This includes examination of the patient, discharge planning, medication reconciliation, and communication with other providers. Discharge Instructions see above
[2017-02-26 14:13] VITALS: BP 100/70; PULSE 74; TEMP 37.5; O2SAT 97
[2017-02-26] MEDS ORDERED: BOOST BREEZE NUTRITION DRINK 1 BOX PO SCH (17:00)
== END 2017-02-26 15:21 | disposition home or self-care (01) | DRG 377 ==
LOC: C.EDB 10:44 → UNDOADMOB 14:20 → C.MS2W 14:20 → EDBEDREQ 14:39 → ENRESERV 14:54 → OBSVTOIN 02-23 14:52 → INTOOBSV 02-23 14:52 → C.MS2W 02-25 01:23
PROVIDERS: ADMIT Family Medicine; ATTEND Hospitalist
DX: K57.91 Diverticulosis of intestine, part unspecified, without perforation or abscess with bleeding (principal); G93.40 Encephalopathy, unspecified; F03.91 Unspecified dementia, unspecified severity, with behavioral disturbance; J10.1 Influenza due to other identified influenza virus with other respiratory manifestations; D64.9 Anemia, unspecified; R19.7 Diarrhea, unspecified; K59.00 Constipation, unspecified; R32 Unspecified urinary incontinence; K64.9 Unspecified hemorrhoids; K80.80 Other cholelithiasis without obstruction; I10 Essential (primary) hypertension; E11.9 Type 2 diabetes mellitus without complications; E03.9 Hypothyroidism, unspecified; H54.8 Legal blindness, as defined in USA; H91.90 Unspecified hearing loss, unspecified ear; Z91.83 Wandering in diseases classified elsewhere; Z66 Do not resuscitate; Z79.82 Long term (current) use of aspirin; Z79.899 Other long term (current) drug therapy

== ENCOUNTER 2017-05-15 13:47 | Emergency (ER) | payer OTHER ==
[~2017-05-15] VITALS: Ht 170.2 cm; Wt 62.0 kg
[~2017-05-15 13:47] MED LIST changes: +ASPI81TA28 PO; +BRIM0.2S18 OPB; +CHOL100010 PO; +DONE10TA12 PO; -DONE1TAB26 PO; +DORZ2SOL20 OPB; +LATA0.009 OPB; -LATA0.5S OP; -LISI-461 PO; +MELA1TAB54 PO; -NUTR-1197 PO; +NUTR-706 PO; -SIMV40TA4 PO; +TMFUDL30 PO
[2017-05-15 13:56] VITALS: TEMP 36; Ht 170.2 cm; Wt 62.0 kg
[2017-05-15] MEDS ORDERED: SODIUM CHLORIDE 0.9% 1000ML 1,000 ML IV STA (14:24)
[2017-05-15] MEDS ORDERED: NovoLIN-R INSULIN PER UNIT CHARGE SC STA (14:27)
[2017-05-15] MEDS ORDERED: LORAZEPAM 2 MG/ML 1 ML VIAL IM STA (14:42)
[2017-05-15 14:56] LABS: BASO % 0.1 %; BASO ABS # 0.01 K/uL (0-0.2); EOS % 1.5 %; EOS ABS # 0.11 K/uL (0-0.5); HEMATOCRIT 41.1 % (42-52); HEMOGLOBIN 14.1 g/dL (14.0-18.0); IG# 0.02 K/uL (0.00-0.02); LYMPH % 19.4 %; LYMPH ABS # 1.43 K/uL (1.2-3.4); MEAN CELL VOLUME 100.7 fL (80-100); MEAN CORPUSCULAR HEMOGLOBIN 34.6 pg (25-34); MEAN CORPUSCULAR HGB CONC 34.3 g/dl (32-36); MONO ABS # 0.74 K/uL (0.11-0.59); NEUT % 68.7 %; NEUT ABS # 5.06 K/uL (1.4-6.5); PLATELET COUNT 129 K/uL (130-400); RED CELL DISTRIBUTION WIDTH CV 13.9 % (11.5-14.5); RED CELL DISTRIBUTION WIDTH SD 51.5 fL (36.4-46.3); WHITE BLOOD COUNT 7.37 K/uL (4.8-10.8)
--- NOTE | 2017-05-15 15:14 | DIAGNOSTIC IMAGING REPORT ---
CHEST ONE VIEW PORTABLE HISTORY: 86 years-old Male EVALUATE ALTERED MENTAL STATUS/WEAKNESS acute altered mental status COMPARISON: Chest radiograph 02/22/2017 TECHNIQUE: Portable AP view of the chest FINDINGS: Cardiomediastinal and hilar silhouettes are within normal limits. Atherosclerosis of the aorta. Left lung apex partially secured by the patient's chin. There is no pneumothorax, pleural effusion, focal airspace consolidation or overt pulmonary edema. Degenerative changes noted within the shoulders and spine. The patient is rotated to the left. IMPRESSION: No acute process. The above report was generated using voice recognition software. It may contain grammatical, syntax or spelling errors. Electronically signed by: Aman Zarco M.D. 05/15/2017 3:13 PM Dictated Date/Time: 05/15/2017 3:12 PM
[2017-05-15 15:16] LABS: CALCIUM 9.5 mg/dl (8.5-10.1); CREATININE 1.25 mg/dl (0.60-1.40); POTASSIUM 5.1 mmol/L (3.5-5.1)
[2017-05-15 15:21] LABS: CKMB 0.8 ng/ml (0.5-3.6)
--- NOTE | 2017-05-15 15:29 | EMERGENCY ROOM VISIT NOTE ---
History Report prepared by Calderon: Anselmo Bal Under the Supervision of: Dr. Jatin Joy D.O. First contact with patient: 14:04 Chief Complaint: ALTERED MENTAL STATUS Stated Complaint: ALTERED MENTAL STATUS Nursing Triage Summary: pt here from home with als with increased confusion. pt has hx of dementia, is hard of hearing and is legally blind. pt has 24 hour care at home. daughter here. concerned pt could have uti. she is already refusing rectal temps or a straight cath, states she cannot go through with those tests for pt pt will not answer questions, fighting bp cuff and pulse ox. History of Present Illness The patient is a 86 year old male who presents to the Emergency Room with complaints of worsening confusion for three days. Per family. the patient has been more disoriented than usual. He has a history of dementia and is legally blind. Per family, the patient is normally able to use the bathroom with assistance. He is normally able to ambulate to the bathroom and be guided to use the toilet, though he believes he is being guided when he is not, so he has been incontinent. Per family, the patient has a cough, though it is non- productive. Per nursing staff, the patient has been combative with EMS. The family contacted the PCP and was advised to bring him to the ED for evaluation. HPI is limited secondary to the patient's condition. Source of History: family, nursing staff Onset: three days Position: other (global) Quality: other (confusion) Timing: worsening Associated Symptoms: + cough Review of Systems ROS is limited secondary to the patient's condition. Past Medical & Surgical Medical Problems: (1) Dehydration (2) Dementia (3) DM (diabetes mellitus) (4) Hernia (5) HTN (hypertension) (6) Hypothyroidism (7) Influenza A Social History Problems: (1) Hernia Family History Cancer Diabetes mellitus Hypertension Social History Smoking Status: Never Smoker Smokeless Tobacco Use: No Alcohol Use: none Drug Use: none Marital Status: Housing Status: lives with family Occupation Status: retired Current/Historical Medications Scheduled Aspirin (Aspirin Ec), 81 MG PO DAILY Brimonidine Tartrate (Brimonidine Tartrate), 1 DROP OPB BID Cholecalciferol (Vitamin D), 2,000 UNITS PO DAILY Citalopram Hydrobromide (Celexa), 20 MG PO DAILY Cyanocobalamin (Vitamin B-12), 500 MCG PO DAILY Donepezil Hydrochloride (Aricept), 1 TAB PO DAILY Dorzolamide Hcl-Timolol Maleat (Cosopt Oph), 1 DROPS OPB BID Enteral Nutrition Formula (Ensure), 1 CAN PO UD Latanoprost (Xalatan 0.005% Oph [place]), 1 DROPS OPB HS Levothyroxine Sodium (Synthroid), 50 MCG PO DAILY Melatonin (Melatonin), 5 MG PO HS Oseltamivir Phosphate (Tamiflu), 30 MG PO BID Allergies Coded Allergies: No Known Allergies (Unverified , 02/22/17) Physical Exam Vital Signs Date Time Temp Pulse Resp B/P (MAP) Pulse Ox O2 Delivery O2 Flow Rate FiO2 05/15/17 13:56 36.0 63 16 149/90 94 Room Air Physical Exam CONSTITUTIONAL/VITAL SIGNS: Reviewed / noted above. GENERAL: Non-toxic in appearance. INTEGUMENTARY: Warm, dry, and [place]. HEAD: Normocephalic. EYES: without scleral icterus or trauma. ENT/OROPHARYNX: clear and moist. LYMPHADENOPATHY/NECK: Is supple without lymphadenopathy or meningismus. RESPIRATORY: Lungs clear and equal. CARDIOVASCULAR: Regular rate and rhythm. GI/ABDOMEN: Soft and nontender. No organomegaly or pulsatile mass. No rebound or guarding. Normal bowel sounds. EXTREMITIES: Warm and well perfused. BACK: No CVA tenderness. NEUROLOGICAL: No gross deficits. Does not cooperate with the exam. Non-verbal during exam. Generalized weakness. PSYCHIATRIC: normal affect. MUSCULOSKELETAL: Normally developed with good muscle tone. Medical Decision & Procedures ER Provider Diagnostic Interpretation: Radiology results as stated below per my review and radiologist interpretation: CHEST ONE VIEW PORTABLE HISTORY: 86 years-old Male EVALUATE ALTERED MENTAL STATUS/WEAKNESS acute altered mental status COMPARISON: Chest radiograph 02/22/2017 TECHNIQUE: Portable AP view of the chest FINDINGS: Cardiomediastinal and hilar silhouettes are within normal limits. Atherosclerosis of the aorta. Left lung apex partially secured by the patient's chin. There is no pneumothorax, pleural effusion, focal airspace consolidation or overt pulmonary edema. Degenerative changes noted within the shoulders and spine. The patient is rotated to the left. IMPRESSION: No acute process. The above report was generated using voice recognition software. It may contain grammatical, syntax or spelling errors. Electronically signed by: Aman Zarco M.D. 05/15/2017 3:13 PM Dictated Date/Time: 05/15/2017 3:12 PM Laboratory Results 05/15/17 14:45 Red Blood Count 4.08, Mean Corpuscular Volume 100.7, Mean Corpuscular Hemoglobin 34.6, Mean Corpuscular Hemoglobin Concent 34.3, Mean Platelet Volume 11.0, Neutrophils (%) (Auto) 68.7, Lymphocytes (%) (Auto) 19.4, Monocytes (%) ( Auto) 10.0, Eosinophils (%) (Auto) 1.5, Basophils (%) (Auto) 0.1, Neutrophils # (Auto) 5.06, Lymphocytes # (Auto) 1.43, Monocytes # (Auto) 0.74, Eosinophils # ( Auto) 0.11, Basophils # (Auto) 0.01 05/15/17 14:45 Test 05/15/17 14:45 05/15/17 14:55 White Blood Count 7.37 K/uL (4.8-10.8) Red Blood Count 4.08 M/uL (4.7-6.1) Hemoglobin 14.1 g/dL (14.0-18.0) Hematocrit 41.1 % (42-52) Mean Corpuscular Volume 100.7 fL (80-100) Mean Corpuscular Hemoglobin 34.6 pg (25-34) Mean Corpuscular Hemoglobin Concent 34.3 g/dl (32-36) Platelet Count 129 K/uL (130-400) Mean Platelet Volume 11.0 fL (7.4-10.4) Neutrophils (%) (Auto) 68.7 % Lymphocytes (%) (Auto) 19.4 % Monocytes (%) (Auto) 10.0 % Eosinophils (%) (Auto) 1.5 % Basophils (%) (Auto) 0.1 % Neutrophils # (Auto) 5.06 K/uL (1.4-6.5) Lymphocytes # (Auto) 1.43 K/uL (1.2-3.4) Monocytes # (Auto) 0.74 K/uL (0.11-0.59) Eosinophils # (Auto) 0.11 K/uL (0-0.5) Basophils # (Auto) 0.01 K/uL (0-0.2) RDW Standard Deviation 51.5 fL (36.4-46.3) RDW Coefficient of Variation 13.9 % (11.5-14.5) Immature Granulocyte % (Auto) 0.3 % Immature Granulocyte # (Auto) 0.02 K/uL (0.00-0.02) Anion Gap 6.0 mmol/L (3-11) Est Creatinine Clear Calc Drug Dose 37.9 ml/min Estimated GFR () 60.5 Estimated GFR (Non- 52.2 BUN/Creatinine Ratio 22.1 (10-20) Calcium Level 9.5 mg/dl (8.5-10.1) Total Creatine Kinase 30 U/L (39-308) Creatine Kinase MB 0.8 ng/ml (0.5-3.6) Creatine Kinase MB Ratio 2.7 (0-3.0) Urine Color YELLOW Urine Appearance CLEAR (CLEAR) Urine pH 5.0 (4.5-7.5) Urine Specific [place] 1.020 (1.000-1.030) Urine Protein TRACE (NEG) Urine Glucose (UA) NEG (NEG) Urine Ketones NEG (NEG) Urine Occult Blood NEG (NEG) Urine Nitrite NEG (NEG) Urine Bilirubin NEG (NEG) Urine Urobilinogen NEG (NEG) Urine Leukocyte Esterase NEG (NEG) Urine WBC (Auto) 1-5 /hpf (0-5) Urine RBC (Auto) 0-4 /hpf (0-4) Urine Hyaline Casts (Auto) 1-5 /lpf (0-5) Urine Epithelial Cells (Auto) 20-30 /lpf (0-5) Urine Bacteria (Auto) NEG (NEG) Medications Administered Medications (Trade) Dose Ordered Sig/Reid Route Start Time Stop Time Status Last Admin Dose Admin Sodium Chloride 1,000 ml @ 999 mls/hr Q1H1M STAT IV 05/15/17 14:24 05/15/17 15:24 DC 05/15/17 14:24 999 MLS/HR ED Course 1408: Previous medical records were reviewed. The patient was evaluated in room B10. A complete history and physical examination was performed. 1424: Ordered Sodium Chloride 1,000 ml @ 999 mls/hr IV 1427: Ordered Insulin Human Regular 8 units SC 1442: Ordered Lorazepam 1 mg IM 1530: I reassessed the patient at this time. He is resting comfortably. I discussed the results and treatment plan with the patient's family. I answered all pertaining questions that they had. They expressed understanding and verbalized agreement. The patient will be discharged home. Medical Decision Prior records/ancillary studies reviewed and summarized above. Nursing notes reviewed. The patient's history was concerning for altered mental status. Differential diagnosis: Etiologies such as metabolic, infection, hypoglycemia, electrolyte abnormalities , cardiac sources, intracerebral event, toxicologic, neurologic, as well as others were entertained. This is a 86-year-old male who presents to the ED with a chief complaint of change in mental status. The patient lives at home and has 24-hour nursing care. He has a history of advanced dementia, hard of hearing and is legally blind. The patient has been a little more disoriented today than usual. He does not have any specific complaints. Initial blood pressure was 149/90. Vital signs are otherwise stable. His physical exam was somewhat challenging as the patient did not cooperate with exam. He was noted to move all 4 extremities. He has some generalized weakness. Was nonverbal during my interaction with him although was heard speaking earlier by staff. The patient does not appear to be in any distress. Family reported a cough although he did not cough during my ER evaluation. His lungs were clear. Abdomen was soft and nontender. He was not cooperative with nursing staff for IV placement, lab draw and urinalysis. They were eventually able to get the tests. He was treated with IV fluids. His CBC and PRP are normal. BUN was 28, urine did not show infection and a chest x-ray was negative for acute disease. The patient was told the results of the test. I spoke with the daughter about the results. They were felt to be stable for discharge. Medication Reconcilliation Current Medication List: was personally reviewed by me Blood Pressure Screening Patient's blood pressure: Elevated blood pressure Blood pressure disposition: Elevated BP felt to be situational Impression Primary Impression: Dementia Scribe Attestation The scribe's documentation has been prepared under my direction and personally reviewed by me in its entirety. I confirm that the note above accurately reflects all work, treatment, procedures, and medical decision making performed by me. Departure Information Dispostion Home / Self-Care Referrals Jacinto Root D.O. (PCP) Forms HOME CARE DOCUMENTATION FORM, IMPORTANT VISIT INFORMATION Patient Instructions My [facility] Additional Instructions Test results did not show any significant abnormalities other than some mild dehydration. Follow-up with your doctor for further care and evaluation in 1-2 days. Return to the emergency department for worsening or new symptoms or any concerns. You have been examined and treated today on an emergency basis only. This is not a substitute for, or an effort to provide, complete comprehensive medical care. It is impossible to recognize and treat all injuries or illnesses in a single emergency department visit. It is therefore important that you follow up closely with your doctor. Call as soon as possible for an appointment.
[2017-05-15 17:09] VITALS: BP 121/74; PULSE 65; O2SAT 93
== END 2017-05-15 17:10 | disposition home or self-care (01) ==
LOC: EDBD 13:47 → C.EDB 13:49
DX: F03.90 Unspecified dementia, unspecified severity, without behavioral disturbance, psychotic disturbance, mood disturbance, and anxiety (principal); R41.82 Altered mental status, unspecified; E11.9 Type 2 diabetes mellitus without complications; I10 Essential (primary) hypertension; E03.9 Hypothyroidism, unspecified; H54.8 Legal blindness, as defined in USA; H91.93 Unspecified hearing loss, bilateral

== ENCOUNTER 2018-03-25 22:37 | Inpatient (IN) ==
[2018-03-25 23:01] LABS: Basophils # (auto) 0.02 K/uL (0-0.2); Basophils % (auto) 0.2 %; Hematocrit (blood only) 48.6 % (42-52); Hemoglobin 16.7 g/dL (14.0-18.0); Immature Granulocytes # (auto) 0.02 K/uL (0.00-0.02); Immature Granulocytes % (auto) 0.2 %; Lymphocytes # (auto) 0.37 K/uL (1.2-3.4); Lymphocytes % (auto) 3.5 %; Mean Corpuscular Hgb Conc 34.4 g/dL (32-36); Mean Platelet Volume 11.9 fL (7.4-10.4); Monocytes # (auto) 0.46 K/uL (0.11-0.59); Monocytes % (auto) 4.4 %; Neutrophils # (auto) 9.59 K/uL (1.4-6.5); Neutrophils % (auto) 91.7 %; Platelet Count 124 K/uL (130-400); RDW Coefficient of Variation 13.4 % (11.5-14.5); RDW Standard Deviation 49.7 fL (36.4-46.3); Red Blood Count 4.81 M/uL (4.7-6.1); White Blood Count 10.46 K/uL (4.8-10.8)
[2018-03-25 23:19] LABS: Appearance Urine Turbid (Clear); Bacteria Urine Automated Negative (Negative); Color Urine Orange; Epithelial Cell Urine Auto >30 /lpf (0-5); Glucose Urine UA Negative (Negative); Ketones Urine Trace (Negative); Leukocyte Esterase Urine Trace (Negative); Nitrite Urine Positive (Negative); Protein Urine 3+ (Negative); Specific Gravity Urine 1.024 (1.000-1.030); Urobilinogen Urine Positive (Negative)
[2018-03-25 23:27] LABS: Bilirubin Urine Negative (Negative); Ictotest Urine Negative (Negative)
[2018-03-25 23:37] LABS: Albumin Globulin Ratio 0.8 (0.9-2); Albumin Level 3.7 gm/dl (3.4-5.0); BUN Creatinine Ratio 17.4 (10-20); Bilirubin,Total 8.4 mg/dl (0.2-1); Calcium 9.8 mg/dl (8.5-10.1); Creatinine Clr Calc Pharmacy 23.9 ml/min; Est GFR (African American) 37.1; Globulin 4.8 gm/dl (2.5-4.0); Potassium 3.8 mmol/L (3.5-5.1); Total Protein 8.5 gm/dl (6.4-8.2)
[2018-03-26 06:52] LABS: Hematocrit (blood only) 43.2 % (42-52); Hemoglobin 14.4 g/dL (14.0-18.0); Mean Corpuscular Hgb Conc 33.3 g/dL (32-36); Mean Corpuscular Volume 102.1 fL (80-100); Mean Platelet Volume 11.5 fL (7.4-10.4); Platelet Count 119 K/uL (130-400); RDW Coefficient of Variation 13.7 % (11.5-14.5); RDW Standard Deviation 51.4 fL (36.4-46.3); Red Blood Count 4.23 M/uL (4.7-6.1); White Blood Count 8.91 K/uL (4.8-10.8)
[2018-03-26 07:25] LABS: Immature Granulocytes # (auto) 0.01 K/uL (0.00-0.02); Immature Granulocytes % (auto) 0.1 %; Lymphocytes # (auto) 0.45 K/uL (1.2-3.4); Lymphocytes % (auto) 5.1 %; Monocytes # (auto) 0.29 K/uL (0.11-0.59); Monocytes % (auto) 3.3 %; Neutrophils # (auto) 8.16 K/uL (1.4-6.5); Neutrophils % (auto) 91.5 %
[2018-03-26 07:35] LABS: Albumin Level 2.9 gm/dl (3.4-5.0); BUN Creatinine Ratio 17.1 (10-20); Bilirubin Direct 4.5 mg/dl (0-0.2); Bilirubin,Total 8.9 mg/dl (0.2-1); Calcium 8.8 mg/dl (8.5-10.1); Creatinine Clr Calc Pharmacy 23.2 ml/min; Est GFR (African American) 37.6; Est GFR (Non-African American) 32.5; Phosphorus 3.2 mg/dl (2.5-4.9); Potassium 3.8 mmol/L (3.5-5.1); Total Protein 7.3 gm/dl (6.4-8.2)
[2018-03-26 08:55] LABS: Estimated Average Glucose 131 mg/dl
[2018-03-26 11:29] LABS: INR 1.1 (0.9-1.1); Prothrombin Time 10.8 Seconds (9.0-12.0)
[2018-03-26 13:20] LABS: Influenza A virus by PCR Neg for Influ A (Neg); Influenza B virus by PCR Neg for Influ B (Neg)
[2018-03-27 05:49] LABS: Albumin Globulin Ratio 0.6 (0.9-2); Albumin Level 2.4 gm/dl (3.4-5.0); BUN Creatinine Ratio 17.5 (10-20); Bilirubin Direct 4.8 mg/dl (0-0.2); Bilirubin,Total 6.5 mg/dl (0.2-1); Calcium 8.1 mg/dl (8.5-10.1); Est GFR (African American) 30.3; Est GFR (Non-African American) 26.2; Globulin 3.8 gm/dl (2.5-4.0); Magnesium 2.3 mg/dl (1.8-2.4); Phosphorus 3.3 mg/dl (2.5-4.9); Potassium 3.8 mmol/L (3.5-5.1); Total Protein 6.2 gm/dl (6.4-8.2)
[2018-03-27 06:13] LABS: Basophils # (auto) 0.01 K/uL (0-0.2); Basophils % (auto) 0.1 %; Echinocytes 1+; Eosinophils # (auto) 0.08 K/uL (0-0.5); Eosinophils % (auto) 0.9 %; Hematocrit (blood only) 39.4 % (42-52); Hemoglobin 13.1 g/dL (14.0-18.0); Immature Granulocytes # (auto) 0.02 K/uL (0.00-0.02); Immature Granulocytes % (auto) 0.2 %; Lymphocytes # (auto) 0.77 K/uL (1.2-3.4); Lymphocytes % (auto) 8.5 %; Mean Corpuscular Hgb Conc 33.2 g/dL (32-36); Mean Corpuscular Volume 102.1 fL (80-100); Monocytes # (auto) 0.67 K/uL (0.11-0.59); Monocytes % (auto) 7.4 %; Neutrophils # (auto) 7.56 K/uL (1.4-6.5); Neutrophils % (auto) 82.9 %; Platelet Count 107 K/uL (130-400); RDW Coefficient of Variation 13.9 % (11.5-14.5); RDW Standard Deviation 51.8 fL (36.4-46.3); Red Blood Count 3.86 M/uL (4.7-6.1); White Blood Count 9.11 K/uL (4.8-10.8)
[2018-03-28 06:52] LABS: Basophils # (auto) 0.01 K/uL (0-0.2); Basophils % (auto) 0.1 %; Eosinophils # (auto) 0.01 K/uL (0-0.5); Eosinophils % (auto) 0.1 %; Hematocrit (blood only) 40.6 % (42-52); Hemoglobin 13.5 g/dL (14.0-18.0); Immature Granulocytes # (auto) 0.01 K/uL (0.00-0.02); Immature Granulocytes % (auto) 0.1 %; Lymphocytes # (auto) 0.89 K/uL (1.2-3.4); Lymphocytes % (auto) 10.9 %; Mean Corpuscular Hgb Conc 33.3 g/dL (32-36); Mean Corpuscular Volume 100.5 fL (80-100); Mean Platelet Volume 11.7 fL (7.4-10.4); Monocytes # (auto) 0.66 K/uL (0.11-0.59); Monocytes % (auto) 8.1 %; Neutrophils # (auto) 6.61 K/uL (1.4-6.5); Neutrophils % (auto) 80.7 %; Platelet Count 119 K/uL (130-400); RDW Coefficient of Variation 13.8 % (11.5-14.5); RDW Standard Deviation 50.8 fL (36.4-46.3); Red Blood Count 4.04 M/uL (4.7-6.1); White Blood Count 8.19 K/uL (4.8-10.8)
[2018-03-28 07:33] LABS: Albumin Globulin Ratio 0.6 (0.9-2); Albumin Level 2.3 gm/dl (3.4-5.0); BUN Creatinine Ratio 17.1 (10-20); Bilirubin Direct 5.3 mg/dl (0-0.2); Calcium 8.1 mg/dl (8.5-10.1); Creatinine Clr Calc Pharmacy 18.6 ml/min; Est GFR (African American) 28.7; Est GFR (Non-African American) 24.8; Globulin 3.9 gm/dl (2.5-4.0); Magnesium 2.5 mg/dl (1.8-2.4); Phosphorus 3.1 mg/dl (2.5-4.9); Potassium 3.8 mmol/L (3.5-5.1); Total Protein 6.2 gm/dl (6.4-8.2)
[2018-03-28 19:44] LABS: Appearance Urine Cloudy (Clear); Bacteria Urine Automated Negative (Negative); Color Urine Dark Yellow; Glucose Urine UA Negative (Negative); Ketones Urine Negative (Negative); Leukocyte Esterase Urine 1+ (Negative); Nitrite Urine Negative (Negative); Protein Urine 1+ (Negative); Specific Gravity Urine 1.018 (1.000-1.030); Urobilinogen Urine Positive (Negative)
[2018-03-28 19:50] LABS: Bilirubin Urine 1+ (Negative); Ictotest Urine Positive (Negative)
[2018-03-29 07:14] LABS: Basophils # (auto) 0.01 K/uL (0-0.2); Basophils % (auto) 0.1 %; Hematocrit (blood only) 39.2 % (42-52); Hemoglobin 13.2 g/dL (14.0-18.0); Immature Granulocytes # (auto) 0.05 K/uL (0.00-0.02); Immature Granulocytes % (auto) 0.6 %; Lymphocytes # (auto) 0.69 K/uL (1.2-3.4); Lymphocytes % (auto) 7.6 %; Mean Corpuscular Hgb Conc 33.7 g/dL (32-36); Mean Corpuscular Volume 99.5 fL (80-100); Mean Platelet Volume 11.9 fL (7.4-10.4); Monocytes # (auto) 0.58 K/uL (0.11-0.59); Monocytes % (auto) 6.4 %; Neutrophils # (auto) 7.71 K/uL (1.4-6.5); Neutrophils % (auto) 85.3 %; Platelet Count 117 K/uL (130-400); RDW Coefficient of Variation 13.6 % (11.5-14.5); RDW Standard Deviation 49.4 fL (36.4-46.3); Red Blood Count 3.94 M/uL (4.7-6.1); White Blood Count 9.04 K/uL (4.8-10.8)
[2018-03-29 07:51] LABS: Albumin Level 2.2 gm/dl (3.4-5.0); BUN Creatinine Ratio 18.9 (10-20); Calcium 8.2 mg/dl (8.5-10.1); Creatinine Clr Calc Pharmacy 23.7 ml/min; Est GFR (African American) 34.4; Est GFR (Non-African American) 29.7; Magnesium 2.5 mg/dl (1.8-2.4); Potassium 3.8 mmol/L (3.5-5.1)
[2018-03-29 08:01] LABS: Albumin Globulin Ratio 0.6 (0.9-2); Bilirubin Direct 3.4 mg/dl (0-0.2); Bilirubin,Total 4.7 mg/dl (0.2-1); Globulin 3.9 gm/dl (2.5-4.0); Phosphorus 1.8 mg/dl (2.5-4.9); Total Protein 6.1 gm/dl (6.4-8.2)
[2018-03-30 09:05] LABS: Albumin Level 2.4 gm/dl (3.4-5.0); BUN Creatinine Ratio 16.2 (10-20); Calcium 8.2 mg/dl (8.5-10.1); Creatinine Clr Calc Pharmacy 25.8 ml/min; Est GFR (African American) 38.1; Est GFR (Non-African American) 32.9; Potassium 3.8 mmol/L (3.5-5.1)
[2018-03-30 09:08] LABS: Albumin Globulin Ratio 0.6 (0.9-2); Bilirubin,Total 3.1 mg/dl (0.2-1); Globulin 4.1 gm/dl (2.5-4.0); Total Protein 6.5 gm/dl (6.4-8.2)
[2018-03-31 08:01] LABS: Hematocrit (blood only) 38.7 % (42-52); Mean Corpuscular Hgb Conc 33.6 g/dL (32-36); Mean Corpuscular Volume 101.6 fL (80-100); Mean Platelet Volume 11.7 fL (7.4-10.4); Platelet Count 140 K/uL (130-400); Red Blood Count 3.81 M/uL (4.7-6.1); White Blood Count 9.75 K/uL (4.8-10.8)
[2018-03-31 08:29] LABS: Albumin Level 2.4 gm/dl (3.4-5.0); BUN Creatinine Ratio 18.5 (10-20); Calcium 8.3 mg/dl (8.5-10.1); Creatinine Clr Calc Pharmacy 32.6 ml/min; Est GFR (African American) 50.6; Est GFR (Non-African American) 43.7; Potassium 3.5 mmol/L (3.5-5.1)
[2018-03-31 08:33] LABS: Albumin Globulin Ratio 0.6 (0.9-2); Bilirubin,Total 2.5 mg/dl (0.2-1); Total Protein 6.4 gm/dl (6.4-8.2)
[2018-04-01 09:15] LABS: Albumin Level 2.2 gm/dl (3.4-5.0); BUN Creatinine Ratio 15.3 (10-20); Calcium 8.2 mg/dl (8.5-10.1); Creatinine Clr Calc Pharmacy 33.1 ml/min; Est GFR (African American) 51.5; Est GFR (Non-African American) 44.4; Potassium 3.2 mmol/L (3.5-5.1)
[2018-04-01 09:25] LABS: Albumin Globulin Ratio 0.6 (0.9-2); Total Protein 6.2 gm/dl (6.4-8.2)
[2018-04-02 15:51] LABS: Albumin Level 2.4 gm/dl (3.4-5.0); BUN Creatinine Ratio 13.2 (10-20); Calcium 8.8 mg/dl (8.5-10.1); Creatinine Clr Calc Pharmacy 33.1 ml/min; Est GFR (African American) 51.5; Est GFR (Non-African American) 44.4; Magnesium 2.2 mg/dl (1.8-2.4); Potassium 3.6 mmol/L (3.5-5.1)
[2018-04-02 15:54] LABS: Albumin Globulin Ratio 0.5 (0.9-2); Bilirubin,Total 1.6 mg/dl (0.2-1); Globulin 4.5 gm/dl (2.5-4.0); Total Protein 6.9 gm/dl (6.4-8.2)
== END 2018-04-02 19:00 | disposition home health service (06) ==
LOC: ED 22:37 → SUATTDRO 03-26 00:30 → 2S 03-26 00:30 → 1E 03-26 08:35 → 2W 03-27 12:16

== ENCOUNTER 2018-04-11 10:39 | Inpatient (IN) ==
[2018-04-11] MEDS ORDERED: VANCOMYCIN HCL 1,800 MG in SODIUM CHLORIDE 0.9% 500 ML IV STA (10:49)
[2018-04-11] MEDS ORDERED: VANCOMYCIN CONSULT ACTIVE PRN ×2 (11:00→16:37)
[2018-04-11] MEDS ORDERED: PIPERACILLIN/TAZOBACTAM 4.5 GM/120 ML BAG IV STA (11:00)
[2018-04-11] MEDS ORDERED: ACETAMINOPHEN 650 MG SUPP PR STA (11:00)
[2018-04-11] MEDS ORDERED: SODIUM CHLORIDE 0.9% 1000ML 1,000 ML IV SCH (11:00)
[2018-04-11 11:19] LABS: Hematocrit (blood only) 43.3 % (42-52); Hemoglobin 14.2 g/dL (14.0-18.0); Mean Corpuscular Hgb Conc 32.8 g/dL (32-36); Mean Corpuscular Volume 102.4 fL (80-100); Mean Platelet Volume 11.7 fL (7.4-10.4); Platelet Count 246 K/uL (130-400); RDW Coefficient of Variation 14.2 % (11.5-14.5); RDW Standard Deviation 53.1 fL (36.4-46.3); Red Blood Count 4.23 M/uL (4.7-6.1)
--- NOTE | 2018-04-11 11:24 | XRay Report ---
XR chest 1V portable CLINICAL HISTORY: fever COMPARISON STUDY: 03/25/2018 FINDINGS: The heart is normal in size. There is aortic tortuosity/ectasia. There are very subtle righ t upper lung zone airspace opacities. A minimal pneumonitis cannot be excluded.[ IMPRESSION: 1. Very subtle right upper lung zone airspace opacities, likely representing a minimal pneumonitis gi neida the history of fever Electronically signed by: Derrick Shaw M.D. 04/11/2018 11:23 AM
[2018-04-11 11:29] LABS: INR 1.1 (0.9-1.1); Prothrombin Time 11.4 Seconds (9.0-12.0)
[2018-04-11 11:36] LABS: Alanine Aminotransferase 26 U/L (12-78); Albumin Level 2.9 gm/dl (3.4-5.0); Aspartate Aminotransferase 21 U/L (15-37); Blood Urea Nitrogen 17 mg/dl (7-18); Calcium 8.8 mg/dl (8.5-10.1); Carbon Dioxide 27 mmol/L (21-32); Chloride 107 mmol/L (98-107); Creatinine Clr Calc Pharmacy 26.4 ml/min; Est GFR (African American) 40.8; Est GFR (Non-African American) 35.2; Glucose 112 mg/dl (70-99); Potassium 3.9 mmol/L (3.5-5.1); Sodium 140 mmol/L (136-145)
[2018-04-11 11:38] LABS: Appearance Urine Clear (Clear); Bacteria Urine Automated Negative (Negative); Bilirubin Urine Negative (Negative); Color Urine Dark Yellow; Glucose Urine UA Negative (Negative); Ketones Urine Negative (Negative); Leukocyte Esterase Urine Negative (Negative); Nitrite Urine Negative (Negative); Protein Urine 1+ (Negative); Specific Gravity Urine 1.016 (1.000-1.030); Urobilinogen Urine Negative (Negative)
[2018-04-11 11:41] LABS: Albumin Globulin Ratio 0.6 (0.9-2); Alkaline Phosphatase 138 U/L (45-117); Bilirubin,Total 1.7 mg/dl (0.2-1); Total Protein 7.9 gm/dl (6.4-8.2); Troponin I < 0.015 ng/ml (0-0.045)
[2018-04-11 11:50] LABS: Basophils # (auto) 0.02 K/uL (0-0.2); Basophils % (auto) 0.1 %; Eosinophils # (auto) 0.01 K/uL (0-0.5); Eosinophils % (auto) 0.1 %; Immature Granulocytes # (auto) 0.04 K/uL (0.00-0.02); Immature Granulocytes % (auto) 0.3 %; Lymphocytes # (auto) 1.39 K/uL (1.2-3.4); Lymphocytes % (auto) 9.1 %; Monocytes # (auto) 0.91 K/uL (0.11-0.59); Monocytes % (auto) 5.9 %; Neutrophils # (auto) 12.93 K/uL (1.4-6.5); Neutrophils % (auto) 84.5 %
--- NOTE | 2018-04-11 12:14 | CT Scan Report ---
CT SCAN OF THE ABDOMEN AND PELVIS WITHOUT CONTRAST CLINICAL HISTORY: Abdominal discomfort and fever. COMMON BILE DUCT CALCULUS COMPARISON STUDY: 03/26/2018 TECHNIQUE: CT scan of the abdomen and pelvis was performed from the lung bases to the proximal femurs . Images are reviewed in the axial, sagittal, and coronal planes. IV contrast was not administered fo r this examination. A dose lowering technique was utilized adhering to the principles of ALARA. CT DOSE: 980.70 mGycm FINDINGS: Lower chest: There is aneurysmal dilatation of the ascending thoracic aorta which measures 49 mm. The re are coronary artery calcifications. The descending thoracic aorta measures 36 mm. There is a small pericardial effusion. Liver: There is pneumobilia. There is indwelling biliary enteric stent. No focal masses are visualize d. Gallbladder: Cholelithiasis. The gallbladder is no longer distended. The previously identified common bile duct calculus is no longer visualized. Spleen: Normal in size and attenuation. Pancreas: Unremarkable. There is been interval resolution of the previously identified pancreatic fartun benny dilatation. Adrenal glands: Unremarkable. Kidneys: There is a right renal cortical calcification. There is a 33 mm lower pole left renal cyst. There is an indeterminate 14 mm left renal mass which exceeds water attenuation. Bowel: There are no transition zones indicate bowel obstruction. There is extensive colonic diverticu losis. There is minimal infiltration of the perisigmoid fat and minimal diverticulitis is suspected. There is mild bowel wall thickening involving the ascending colon. There is minimal infiltration the pericecal fat. A mild colitis is suspected. Peritoneum: There is no intraperitoneal free air or abdominal ascites. There are small fat-containing umbilical hernias. Vasculature: There is a 35mm infrarenal abdominal aortic aneurysm. Adenopathy: None. Pelvic viscera: There is air within the bladder likely iatrogenic. There are multiple large bladder c alculi measuring up to 17 mm. The prostate is enlarged measuring 6 cm. Skeletal structures: There is bilateral L5 spondylolysis. There is a grade 1 spondylolisthesis of L5 on S1. IMPRESSION: 1. Interval placement of a biliary enteric stent. No common bile duct calculi are visualized. There i s postprocedural pneumobilia. 2. Cholelithiasis. The gallbladder is no longer distended 3. No evidence of bowel obstruction. No evidence of free air 4. 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 Mild sigmoid diverticulitis 6. Mild bowel wall thickening involving the ascending colon with minimal infiltration of the periceca l fat. A mild colitis is suspected 7. Multiple bladder calculi 8. Prostamegaly 9. Indeterminate 14 mm left renal mass Electronically signed by: Derrick Shaw M.D. 04/11/2018 12:13 PM
[2018-04-11] MEDS ORDERED: LORazepam 1 MG/2 ML VIAL IV STA (12:52)
--- NOTE | 2018-04-11 13:33 | Emergency Department Note ---
Entered by Kimber Chang acting as a scribe for History of Present Illness General Chief complaint: Fever Time Seen by Provider: 04/11/18 10:43 Source: EMS Limitations: altered mental status History of Present Illness Onset (ago): hour(s) 6 Severity: moderate (102.9) Pain Consistency: + other (persistent) Quality: + other (fever) Relieved By: not by medication (Tylenol) Associated symptoms: + other (diarrhea, altered more than normal) The patient is an 87 year old male who presents to the Emergency Room with complaints of a persistent fever starting 6 hours ago. Per EMS, the patient was here on the of this month for gallstones. They report that he had a gallbladder stent placed at that time and was admitted for a few days. They states that the patient was sent home on antibiotics and finished them 2 days ago. They report that yesterday he started having diarrhea. They reports that 6 hours ago they found him to have a fever of 102.9. EMS states that he was given 1000 mg at that time, which bout it down to 101.5, but it bounced right back up. EMS notes that he has a history of dementia, but is believed to be more altered than normal. They report that he normally can tell people when he has to go to the bathroom, but he has not been. HPI and ROS are limited secondary to dementia and altered mental status. Home Medications Home Medications Medication Instructions Recorded Confirmed Type acetaminophen [Tylenol Extra 500 mg PO Q6H PRN 03/26/18 04/11/18 History Strength] calcium polycarbophil 625 mg PO DAILY 03/26/18 04/11/18 History cetirizine 5 mg PO DAILY 03/26/18 04/11/18 History cholecalciferol (vitamin D3) 2,000 unit PO DAILY 03/26/18 04/11/18 History [Vitamin D3] cyanocobalamin (vitamin B-12) 500 mcg PO DAILY 03/26/18 04/11/18 History food supplemt, lactose-reduced 1 btl PO BID 03/26/18 04/11/18 History [Ensure Clear] food supplemt, lactose-reduced 1 btl PO DAILY 03/26/18 04/11/18 History [Ensure] levothyroxine 50 mcg PO QAM 03/26/18 04/11/18 History lorazepam 0.25 mg PO HS 03/26/18 04/11/18 History lorazepam 0.5 mg PO TID 03/26/18 04/11/18 History melatonin 6 mg PO HS PRN 03/26/18 04/11/18 History menthol-zinc oxide [Calmoseptine] 1 applic TOPICAL UD PRN 03/26/18 04/11/18 History quetiapine 25 mg PO HS 03/26/18 04/11/18 History sennosides 8.6 mg PO BID PRN 03/26/18 04/11/18 History potassium chloride 10 meq PO DAILY #30 tab 04/02/18 04/11/18 Rx Allergies Allergy/AdvReac Type Severity Reaction Status Date / Time No Known Allergies Allergy Unverified 04/11/18 11:56 Past Med/Surg History Medical History Gram negative sepsis Goals of care, counseling/discussion Encounter for pre-operative examination Discharge planning issues Limited code status, all resuscitation measures excluding chest compressions Acute renal failure superimposed on stage 3 chronic kidney disease (Acute) Hypotension (Acute) Severe sepsis (Acute) Cholangitis concurrent with and due to calculus of gallbladder (Acute) UTI (urinary tract infection) (Acute) Altered mental status (Acute) DM (diabetes mellitus) (Chronic) HTN (hypertension) (Chronic) In past only Dementia (Chronic) Dehydration (Resolved) Hernia (Resolved) Hypothyroidism (Chronic) Influenza A (Resolved) Gallstones Cholangitis Sepsis associated hypotension on low dose vasopressor Surgical History Hx of inguinal hernia surgery Family History Other No significant family history Social History Current Living Situation: Alone Feels Safe at Home: Yes Smoking Status: Former smoker Hx Alcohol Use: No Hx Substance Use: No Beliefs That Will Affect Care: None Preferred Language: Ecuadorean Visual Impairment: Blindness Review of Systems HPI and ROS are limited secondary to dementia and altered mental status Physical Exam Vital Signs Vital Signs - 24 hr 04/11/18 09:58 04/11/18 12:20 Temperature 39.1 C H Temperature Source Rectal Sepsis Recent Fever Within 48 Hours Yes Sepsis New/Unexplained Change in Mental Status No Sepsis Action Taken by Nursing No Action Required Pulse Rate 101 H Pulse Rate [Apical] 85 Respiratory Rate 30 H 24 Respiratory Effort / Characteristics Non-Labored Non-Labored Respiratory Depth Normal Normal Respiratory Pattern Regular Blood Pressure 161/140 H Blood Pressure [Left Arm] 108/67 Blood Pressure Mean 147 Blood Pressure Mean [Left Arm] 80 Pulse Oximetry 95 94 Oxygen Delivery Method Room Air Room Air CONSTITUTIONAL/VITAL SIGNS: Reviewed / noted above. GENERAL: Non-toxic in appearance. INTEGUMENTARY: Warm, dry, and [place]. HEAD: Normocephalic. EYES: without scleral icterus or trauma. ENT/OROPHARYNX: clear and moist. LYMPHADENOPATHY/NECK: Is supple without lymphadenopathy or meningismus. RESPIRATORY: Lungs clear and equal. CARDIOVASCULAR: Regular rate and rhythm. GI/ABDOMEN: Soft and nontender. No organomegaly or pulsatile mass. No rebound or guarding. Normal bowel sounds. EXTREMITIES: Warm and well perfused. BACK: No CVA tenderness. NEUROLOGICAL: Confused. Noncooperative with exam. PSYCHIATRIC: normal affect. MUSCULOSKELETAL: Normally developed with good muscle tone. Course 1046: Past medical records reviewed. The patient was evaluated in room B4B, and a complete history and physical examination were performed. 1257: I paged the hospitalist at this time. 1311: I [facility] the patient[facility] He will evaluate the patient for further management. 1313: I reevaluated the patient and was going to update his family, but they had stepped out for lunch at this time. I updated him on his test results and treatment plan. He verbally agrees and understands. Nursing staff will inform the family. Consultations Consultation #1: I [facility] the [facility] He will evaluate the patient for further management. Time: 13:11 Administered Medications Discontinued Medications Acetaminophen (Tylenol) 650 mg IN NOW STA Stop: 04/11/18 11:01 Last Admin: 04/11/18 12:02 Dose: 650 mg Piperacillin Sod/Tazobactam Sod (Zosyn) 4.5 gm in 120 mls @ 200 mls/hr IV NOW STA Stop: 04/11/18 11:35 Last Infusion: 04/11/18 12:51 Dose: Admin: 04/11/18 12:02 Dose: 200 mls/hr Sodium Chloride (Nss 1000ml) 1,000 mls @ 999 mls/hr IV .Q1H1M MAC Stop: 04/11/18 12:00 Last Infusion: 04/11/18 12:51 Dose: Admin: 04/11/18 12:01 Dose: 999 mls/hr Vancomycin HCl 1,800 mg/ (Sodium Chloride) 536 mls @ 200 mls/hr IV NOW STA Stop: 04/11/18 13:18 Last Admin: 04/11/18 12:01 Dose: 200 mls/hr Lorazepam (Ativan) 1 mg in 2 mls @ 2 mls/min IV NOW STA Stop: 04/11/18 12:53 Last Admin: 04/11/18 12:56 Dose: 2 mls/min Medical Decision Making Differential Diagnosis Differential includes acute coronary syndrome, myocardial infarction, CVA, TIA , anemia, infection, pneumonia, UTI, pyelonephritis, poor nutrition, dehydration , electrolyte disturbance,hypoglycemia. Medical Records Attestation: I reviewed the patient's medical records. Home Medications Current Medication List: was personally reviewed by me Laboratory Data Attestation: I reviewed the patient's lab results. Result diagrams: 04/11/18 11:00 04/11/18 11:00 Lab Results 04/11/18 04/11/18 04/11/18 Range/Units 11:00 11:00 11:00 WBC 15.30 H (4.8-10.8) K/uL RBC 4.23 L (4.7-6.1) M/uL Hgb 14.2 (14.0-18.0) g/dL Hct 43.3 (42-52) % MCV 102.4 H (80-100) fL MCH 33.6 (25-34) pg MCHC 32.8 (32-36) g/dL RDW Std Deviation 53.1 H (36.4-46.3) fL RDW Coeff of [place] 14.2 (11.5-14.5) % Plt Count 246 (130-400) K/uL MPV 11.7 H (7.4-10.4) fL Immature Gran % (Auto) 0.3 % Neut % (Auto) 84.5 % Lymph % (Auto) 9.1 % Tift % (Auto) 5.9 % Eos % (Auto) 0.1 % Baso % (Auto) 0.1 % Immature Gran # (Auto) 0.04 H (0.00-0.02) K/uL Neut # (Auto) 12.93 H (1.4-6.5) K/uL Lymph # (Auto) 1.39 (1.2-3.4) K/uL Tift # (Auto) 0.91 H (0.11-0.59) K/uL Eos # (Auto) 0.01 (0-0.5) K/uL Baso # (Auto) 0.02 (0-0.2) K/uL PT 11.4 (9.0-12.0) Seconds INR 1.1 (0.9-1.1) Sodium 140 (136-145) mmol/L Potassium 3.9 (3.5-5.1) mmol/L Chloride 107 (98-107) mmol/L Carbon Dioxide 27 (21-32) mmol/L Anion Gap 6.0 (3-11) BUN 17 (7-18) mg/dl Creatinine 1.72 H (0.6-1.4) mg/dl Est Cr Clr Drug Dosing 26.4 ml/min Est GFR ( Amer) 40.8 Est GFR (Non-Af Amer) 35.2 BUN/Creatinine Ratio 10.0 (10-20) Glucose 112 H (70-99) mg/dl POC Lactic Acid Otis (0.90-1.70) mmol/L Calcium 8.8 (8.5-10.1) mg/dl Total Bilirubin 1.7 H (0.2-1) mg/dl AST 21 (15-37) U/L ALT 26 (12-78) U/L Alkaline Phosphatase 138 H (45-117) U/L Troponin I < 0.015 (0-0.045) ng/ml Total Protein 7.9 (6.4-8.2) gm/dl Albumin 2.9 L (3.4-5.0) gm/dl Globulin 5.0 H (2.5-4.0) gm/dl Albumin/Globulin Ratio 0.6 L (0.9-2) Urine Color Urine Appearance (Clear) Urine pH (4.5-7.5) Ur Specific [place] (1.000-1.030) Urine Protein (Negative) Urine Glucose (UA) (Negative) Urine Ketones (Negative) Urine Blood (Negative) Urine Nitrite (Negative) Urine Bilirubin (Negative) Urine Urobilinogen (Negative) Ur Leukocyte Esterase (Negative) Urine WBC (Auto) (0-5) /hpf Urine RBC (Auto) (0-4) /hpf U Hyaline Cast (Auto) (0-5) /lpf U Epithel Cells (Auto) (0-5) /lpf Urine Bacteria (Auto) (Negative) Influenza Type A Ag (Neg) Influenza Type B Ag (Neg) 04/11/18 04/11/18 04/11/18 Range/Units 11:05 11:07 11:15 WBC (4.8-10.8) K/uL RBC (4.7-6.1) M/uL Hgb (14.0-18.0) g/dL Hct (42-52) % MCV (80-100) fL MCH (25-34) pg MCHC (32-36) g/dL RDW Std Deviation (36.4-46.3) fL RDW Coeff of [place] (11.5-14.5) % Plt Count (130-400) K/uL MPV (7.4-10.4) fL Immature Gran % (Auto) % Neut % (Auto) % Lymph % (Auto) % [place] % (Auto) % Eos % (Auto) % Baso % (Auto) % Immature Gran # (Auto) (0.00-0.02) K/uL Neut # (Auto) (1.4-6.5) K/uL Lymph # (Auto) (1.2-3.4) K/uL Tift # (Auto) (0.11-0.59) K/uL Eos # (Auto) (0-0.5) K/uL Baso # (Auto) (0-0.2) K/uL PT (9.0-12.0) Seconds INR (0.9-1.1) Sodium (136-145) mmol/L Potassium (3.5-5.1) mmol/L Chloride (98-107) mmol/L Carbon Dioxide (21-32) mmol/L Anion Gap (3-11) BUN (7-18) mg/dl Creatinine (0.6-1.4) mg/dl Est Cr Clr Drug Dosing ml/min Est GFR ( Amer) Est GFR (Non-Af Amer) BUN/Creatinine Ratio (10-20) Glucose (70-99) mg/dl POC Lactic Acid [place] 3.25 H (0.90-1.70) mmol/L Calcium (8.5-10.1) mg/dl Total Bilirubin (0.2-1) mg/dl AST (15-37) U/L ALT (12-78) U/L Alkaline Phosphatase (45-117) U/L Troponin I (0-0.045) ng/ml Total Protein (6.4-8.2) gm/dl Albumin (3.4-5.0) gm/dl Globulin (2.5-4.0) gm/dl Albumin/Globulin Ratio (0.9-2) Urine Color Dark Yellow Urine Appearance Clear (Clear) Urine pH 5.0 (4.5-7.5) Ur Specific [place] 1.016 (1.000-1.030) Urine Protein 1+ H (Negative) Urine Glucose (UA) Negative (Negative) Urine Ketones Negative (Negative) Urine Blood Negative (Negative) Urine Nitrite Negative (Negative) Urine Bilirubin Negative (Negative) Urine Urobilinogen Negative (Negative) Ur Leukocyte Esterase Negative (Negative) Urine WBC (Auto) 1-5 (0-5) /hpf Urine RBC (Auto) 5-10 H (0-4) /hpf U Hyaline Cast (Auto) 1-5 (0-5) /lpf U Epithel Cells (Auto) 5-10 H (0-5) /lpf Urine Bacteria (Auto) Negative (Negative) Influenza Type A Ag Neg for Influ A (Neg) Influenza Type B Ag Neg for Influ B (Neg) Imaging Data Radiologist's Impression: Radiology results as stated below per my review and the radiologist's interpretation: XR chest 1V portable CLINICAL HISTORY: fever COMPARISON STUDY: 03/25/2018 FINDINGS: The heart is normal in size. There is aortic tortuosity/ectasia. There are very subtle right upper lung zone airspace opacities. A minimal pneumonitis cannot be excluded.[ IMPRESSION: 1. Very subtle right upper lung zone airspace opacities, likely representing a minimal pneumonitis given the history of fever Electronically signed by: Derrick Shaw M.D. 04/11/2018 11:[address] SCAN OF THE ABDOMEN AND PELVIS WITHOUT CONTRAST CLINICAL HISTORY: Abdominal discomfort and fever. COMMON BILE DUCT CALCULUS COMPARISON STUDY: 03/26/2018 TECHNIQUE: CT scan of the abdomen and pelvis was performed from the lung bases to the proximal femurs. Images are reviewed in the axial, sagittal, and coronal planes. IV contrast was not administered for this examination. A dose lowering technique was utilized adhering to the principles of ALARA. CT DOSE: 980.70 mGycm FINDINGS: Lower chest: There is aneurysmal dilatation of the ascending thoracic aorta which measures 49 mm. There are coronary artery calcifications. The descending thoracic aorta measures 36 mm. There is a small pericardial effusion. Liver: There is pneumobilia. There is indwelling biliary enteric stent. No focal masses are visualized. Gallbladder: Cholelithiasis. The gallbladder is no longer distended. The previously identified common bile duct calculus is no longer visualized. Spleen: Normal in size and attenuation. Pancreas: Unremarkable. There is been interval resolution of the previously identified pancreatic ductal dilatation. Adrenal glands: Unremarkable. Kidneys: There is a right renal cortical calcification. There is a 33 mm lower pole left renal cyst. There is an indeterminate 14 mm left renal mass which exceeds water attenuation. Bowel: There are no transition zones indicate bowel obstruction. There is extensive colonic diverticulosis. There is minimal infiltration of the perisigmoid fat and minimal diverticulitis is suspected. There is mild bowel wall thickening involving the ascending colon. There is minimal infiltration the pericecal fat. A mild colitis is suspected. Peritoneum: There is no intraperitoneal free air or abdominal ascites. There are small fat-containing umbilical hernias. Vasculature: There is a 35mm infrarenal abdominal aortic aneurysm. Adenopathy: None. Pelvic viscera: There is air within the bladder likely iatrogenic. There are multiple large bladder calculi measuring up to 17 mm. The prostate is enlarged measuring 6 cm. Skeletal structures: There is bilateral L5 spondylolysis. There is a grade 1 spondylolisthesis of L5 on S1. IMPRESSION: 1. Interval placement of a biliary enteric stent. No common bile duct calculi are visualized. There is postprocedural pneumobilia. 2. Cholelithiasis. The gallbladder is no longer distended 3. No evidence of bowel obstruction. No evidence of free air 4. 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 Mild sigmoid diverticulitis 6. Mild bowel wall thickening involving the ascending colon with minimal infiltration of the pericecal fat. A mild colitis is suspected 7. Multiple bladder calculi 8. Prostamegaly 9. Indeterminate 14 mm left renal mass Electronically signed by: Derrick Shaw M.D. 04/11/2018 12:13 PM Blood Pressure Blood Pressure Findings: Elevated blood pressure Blood Pressure Disposition: elevated BP felt to be situational MDM Narrative This is a 87-year-old male who presents to the ED with a chief complaint of fever. The patient resides a local long term where he was sent in for fever. He is a poor historian and is unable to provide any additional history. He is apparently blind, hard of hearing and has dementia. The patient was admitted to the hospital March 27 through the for cholangitis. He was treated with antibiotics and a stent in a biliary duct. The patient's symptoms improved with that. The patient was noted to have a fever today and sent here for further evaluation. His physical exam did not reveal any abdominal tenderness. His lungs were mostly clear. He is uncooperative on exam and having some diarrhea. A CT scan of the abdomen pelvis reveals some mild sigmoid diverticulitis. A chest x-ray reveals a mild right upper lobe pneumonia. White blood cell count is 15,000. Creatinine is slightly elevated over baseline at 1.7. Urine did not show infection. Lactic acid level was elevated. Flu swab was negative. Because of the symptoms, abnormal test results and elevated fever of 39.1 today, the patient will be seen for further inpatient evaluation and care. He was treated with broad-spectrum IV antibiotics as well as some IV fluids. He was also given oral Tylenol and a dose of IV Ativan as he normally takes this at home for agitation. Impression & Plan Pneumonia, Diverticulitis, Acute alteration in mental status Discharge Plan Visit Data Chief Complaint: Fever ED Provider: Jatin Joy Discharge Problem: Pneumonia, Diverticulitis, Acute alteration in mental status Patient Disposition: Being Evaluated by Hospitalist Forms Stand Alone Forms: [employer] Prescriptions Prescriptions: No Action quetiapine 25 mg tablet 25 mg PO HS RF: 0 lorazepam 0.5 mg Tablet 0.25 mg PO HS RF: 0 lorazepam 0.5 mg Tablet 0.5 mg PO TID RF: 0 sennosides 8.6 mg Tablet 8.6 mg PO BID PRN (Reason: Constipation) RF: 0 cetirizine 10 mg Tablet 5 mg PO DAILY RF: 0 melatonin 3 mg Tablet 6 mg PO HS PRN (Reason: Sleep) RF: 0 acetaminophen [Tylenol Extra Strength] 500 mg Tablet 500 mg PO Q6H PRN (Reason: Unknown) RF: 0 cyanocobalamin (vitamin B-12) 500 mcg Tablet 500 mcg PO DAILY RF: 0 calcium polycarbophil 625 mg Tablet 625 mg PO DAILY RF: 0 cholecalciferol (vitamin D3) [Vitamin D3] 1,000 unit Tablet 2,000 unit PO DAILY RF: 0 menthol-zinc oxide [Calmoseptine] 0.44-20.6 % Ointment 1 applic TOPICAL UD PRN (Reason: skin breakdown) RF: 0 levothyroxine 50 mcg Capsule 50 mcg PO QAM RF: 0 food supplemt, lactose-reduced [Ensure] Liquid 1 btl PO DAILY RF: 0 food supplemt, lactose-reduced [Ensure Clear] Liquid 1 btl PO BID RF: 0 potassium chloride 10 mEq tablet extended release 10 meq PO DAILY Qty: 30 RF: 0 Referrals Referrals: Jacinto Root [Primary Care Provider] - The scribe's documentation has been prepared under my direction and personally reviewed by me in its entirety. I confirm that the note above accurately reflects all work, treatment, procedures, and medical decision making performed by me.
[2018-04-11] MEDS ORDERED: SODIUM CHLORIDE 0.9% 1000ML 1,000 ML IV ONE (13:54)
--- NOTE | 2018-04-11 14:03 | History & Physical Report ---
Addendum entered and electronically signed by Treva Shaffer PA-C 15:29: Addendum (Blank) Addendum April 11, 2018 15:28 Repeat Lactate 1.6, Cr 1.57 Given this, after completes additional 1L IVF with transition him to D51/2NS at 50cc/hr Original Note: Date of Service April 11, 2018 Assessment & Plan (1) Sepsis: This is an 87 year old male with significant PMH of Advanced dementia, T2DM, HTN , hypothyroidism, deafness, blindness who presents to [facility] ED with fever x 1 day. Patient was recently confined at [facility] 03/25-04/03/18 secondary to klebsiella bacteremia, acute cholangitis s/p ERCP with stent placement discharged home on 7 day course of oral keflex. Presents to [facility] ED 04/11/18 with fever 39.1, tachycardia heart rate greater than 100, leukocytosis 15.3, lactic acidosis 3.25 Patient meets sepsis criteria for current CMS guidelines Hospitalist team called for admission and patient was seen and evaluated at 1400 Received 1L IVF in ED initially along with broad spectrum IV antibiotics Blood cultures/Urine cultures obtained Given Sepsis per CMS guidelines ordered additional 1L IVF to meet 30 ml/kg Source: ? RUL PNA vs Diverticulitis/colitis vs Recent Biliary stent placement vs bacteremia (given recent kleb bacteremia) -admit to pcu/telemetry -continue broad spectrum IV antibiotics Vanco/Zosyn -after 1L IVF completed with run at 125ml/hr -keep NPO for now -consult gen surg given recent ERCP with biliary stent placement -trend lactic acid, bmp -check stool given recent antibiotic/diarrhea -repeat labs in a.m -await cultures (2) Acute renal failure superimposed on stage 3 chronic kidney disease: -baseline cr 1.2-1.4 -elevated today to 1.72 given sepsis -continue IVF resuscitation -follow bmp (3) Altered mental status: -patient with advanced dementia and now with sepsis (4) DM (diabetes mellitus): -A1C 03/26/18 6.2 -will implement novolog ISS per protocl (5) Hypothyroidism: -continue levothyroxine (6) DVT prophylaxis: -heparin SQ Disposition: to be determined Patient is DNR Follow up: with PCP Dr. Root upon discharge Patient seen in collaboration with Dr. Mcgee, please see addendum Starting 04/11/18 patient will be followed by Dr. Richardson History of Present Illness Chief Complaint: Fever x 1 day. Primary Care Provider: Jacinto Root This is an 87 year old male with significant PMH of Advanced dementia, T2DM, HTN , hypothyroidism, deafness, blindness who presents to [facility] ED with fever x 1 day. Daughter who is caregiver of patient at bedside. He resides at home with 24/7 care. Patient was recently confined at [facility] 03/25-04/03/18 secondary to klebsiella bacteremia, acute cholangitis s/p ERCP with stent placement discharged home on 7 day course of oral keflex. Per daughter pt completed course of antibiotic therapy. History unable to be obtained from patient. Upon discharge patient had been doing well, tolerating po intake. No coughing or choking on foods. He eats pureed meals due to refusing to wear dentures. Approx 2 days ago had developed loose stools. When another caregiver checked on patient this a.m. noted him to be febrile at 103. Per daughter no other significant abnormality; however difficult to ascertain given patient underlying cognitive issues. She has noticed a moist cough that started today. Allergies Allergy/AdvReac Type Severity Reaction Status Date / Time No Known Allergies Allergy Unverified 04/11/18 11:56 Home Medications Home Medications Medication Instructions Recorded Confirmed Type acetaminophen [Tylenol Extra 500 mg PO Q6H PRN 03/26/18 04/11/18 History Strength] calcium polycarbophil 625 mg PO DAILY 03/26/18 04/11/18 History cetirizine 5 mg PO DAILY 03/26/18 04/11/18 History cholecalciferol (vitamin D3) 2,000 unit PO DAILY 03/26/18 04/11/18 History [Vitamin D3] cyanocobalamin (vitamin B-12) 500 mcg PO DAILY 03/26/18 04/11/18 History food supplemt, lactose-reduced 1 btl PO BID 03/26/18 04/11/18 History [Ensure Clear] food supplemt, lactose-reduced 1 btl PO DAILY 03/26/18 04/11/18 History [Ensure] levothyroxine 50 mcg PO QAM 03/26/18 04/11/18 History lorazepam 0.25 mg PO HS 03/26/18 04/11/18 History lorazepam 0.5 mg PO TID 03/26/18 04/11/18 History melatonin 6 mg PO HS PRN 03/26/18 04/11/18 History menthol-zinc oxide [Calmoseptine] 1 applic TOPICAL UD PRN 03/26/18 04/11/18 History quetiapine 25 mg PO HS 03/26/18 04/11/18 History sennosides 8.6 mg PO BID PRN 03/26/18 04/11/18 History potassium chloride 10 meq PO DAILY #30 tab 04/02/18 04/11/18 Rx Past Med/Surg History Medical History Goals of care, counseling/discussion Encounter for pre-operative examination Discharge planning issues Limited code status, all resuscitation measures excluding chest compressions Acute renal failure superimposed on stage 3 chronic kidney disease (Acute) Severe sepsis (Acute) Cholangitis concurrent with and due to calculus of gallbladder (Acute) Altered mental status (Acute) DM (diabetes mellitus) (Chronic) HTN (hypertension) (Chronic) In past only Dementia (Chronic) Dehydration (Resolved) Hernia (Resolved) Hypothyroidism (Chronic) Gallstones Cholangitis (Resolved) Gram negative sepsis (Resolved) Hypotension (Resolved) Influenza A (Resolved) Sepsis associated hypotension (Resolved) on low dose vasopressor UTI (urinary tract infection) (Resolved) Surgical History Hx of inguinal hernia surgery (Chronic) Status post endoscopic retrograde cholangiopancreatography 03/26 Dr. Franco secondary to cholangitis Family History Other Family history non-contributory Social History Current Living Situation: Alone Current Living Situation Comment: Has 03/10 caregivers, including daughter Feels Safe at Home: Yes Smoking Status: Former smoker Hx Alcohol Use: No Hx Substance Use: No Beliefs That Will Affect Care: None Preferred Language: Greek Visual Impairment: Blindness Review of Systems Unobtainable due to cognitive status Physical Exam 2 Vital Signs (Past 24 Hours): Last Vital Signs Temp 39.1 C H 04/11/18 09:58 Pulse 92 H 04/11/18 13:54 Resp 22 04/11/18 13:54 BP 118/72 04/11/18 13:54 Pulse Ox 93 04/11/18 13:54 Physical Exam: Gen: Thin, Cachectic M, lying in bed, mumbling but otherwise non verbal given hearing impairment/blindness, NAD, Head: Normocephalic, Atraumatic, Eyes: Sclera normal, no conjunctival injection, PERRLA, EOMI ENT: Gross hearing intact, normal pharynx, mucous membranes moist Neck: supple, no adenopathy, JVD, no bruit, Resp: Diminished breathsounds given poor insp effort/not following commands but otherwise clear to auscultation b/l, no wheeze, rales, rhonchi. Normal insp/ exp effort, no accessory muscle use +moist cough noted CV: tachycardic rate, regular rhythm, no murmur, rub, gallop, or ectopy Abd: +BS x 4, soft, nontender, nondistended Musculoskeletal: not obtained given patient not following commands Extremities: No edema bilaterally Skin: warm, moist, no rash, mild turgor, cap refill < 2sec Neuro: unable to assess given patients mental status : deferred Results & Data Laboratory Results Short CBC 04/11/18 Range/Units 11:00 WBC 15.30 H (4.8-10.8) K/uL Hgb 14.2 (14.0-18.0) g/dL Hct 43.3 (42-52) % Plt Count 246 (130-400) K/uL BMP 04/11/18 11:00 Sodium 140 Potassium 3.9 Chloride 107 Carbon Dioxide 27 BUN 17 Creatinine 1.72 H Glucose 112 H Calcium 8.8 Cardiac Enzymes 04/11/18 Range/Units 11:00 Troponin I < 0.015 (0-0.045) ng/ml Liver Function 04/11/18 Range/Units 11:00 Total Bilirubin 1.7 H (0.2-1) mg/dl AST 21 (15-37) U/L ALT 26 (12-78) U/L Alkaline Phosphatase 138 H (45-117) U/L Albumin 2.9 L (3.4-5.0) gm/dl Urine 04/11/18 Range/Units 11:05 Urine Color Dark Yellow Urine Appearance Clear (Clear) Urine pH 5.0 (4.5-7.5) Ur Specific [place] 1.016 (1.000-1.030) Urine Protein 1+ H (Negative) Urine Glucose (UA) Negative (Negative) Diagnostic Findings Abd/Pelvis CT: IMPRESSION: 1. Interval placement of a biliary enteric stent. No common bile duct calculi are visualized. There is postprocedural pneumobilia. 2. Cholelithiasis. The gallbladder is no longer distended 3. No evidence of bowel obstruction. No evidence of free air 4. 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 Mild sigmoid diverticulitis 6. Mild bowel wall thickening involving the ascending colon with minimal infiltration of the pericecal fat. A mild colitis is suspected 7. Multiple bladder calculi 8. Prostamegaly 9. Indeterminate 14 mm left renal mass CXR: IMPRESSION: 1. Very subtle right upper lung zone airspace opacities, likely representing a minimal pneumonitis given the history of fever Medications Administered 1L IVF IV Vanco/Zosyn 1G lorazepam Additonal 1L IVF ordered Code Status & VTE Plan Code Status DNR met with palliative care last admission 03/27/18 deemed DNR/DNI VTE Prophylaxis Plan VTE Prophylaxis will be ordered: Yes Supervising Physician Co-Signing Physician Notes I have seen and examined the patient and agree with the assessment and plan as above and would like to comment that patient is an 87 year old M who presents to the ER with sepsis with lactic acidosis. Patient had received 1 liter of IV fluids as per Emergency department team with dose of Vancomycin and Zosyn and then hospitalist team arranged for 2nd liter of IV fluids. Repeat lactic acid is 1.6 and with resolution of lactic acidosis. of note patient had been recently discharged after from a hospitalization in which he had common bile duct stent placed and also then with blood cultures for pansensitive Klebsiella pneumoniae and had recently completed 7 day outpatient course of oral Keflex. imaging on this admission does not suggest any worsening problems with gallbladder - there is cholelithiasis without gallbladder distention and a postprocedural pneumobilia which may be expected after a biliary stent will have patient be assess by general surgery service in case there gallbladder or biliary source of infection. there is some evidence of diverticulitis and colitis and will send off testing for C.difficile but as per history there does not appear to be acute changes in bowel movements other imaging findings of Multiple bladder calculi Prostamegaly Indeterminate 14 mm left renal mass acute kidney injury should resolve with the already given IV fluids will keep NPO for now because of possible aspiration pneumonia will continue broad spectrum antibiotics for sepsis of unclear origin as lactic acidosis resolving willl plan on giving D5 1/2 normal saline for nourishment until re-assessment of swallowing patient known to have dementia as per daughter, is visually impaired, and has auditory impairments On physical exam general: groans on exam, unclear whether he is aware of his surroundings abdomen: soft, bowel sounds present, no apparent grimacing when testing for rebound tenderness Lungs: clear to auscultation bilaterally heart: regular rate extremities: no gross edema _ (1) DM (diabetes mellitus) Chronic kidney disease stage: stage 3 (moderate) Diabetes mellitus complication detail: with chronic kidney disease Diabetes mellitus complication status: with kidney complications Diabetes mellitus fdc insulin 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 Diabetes mellitus macular edema: Diabetes mellitus type: type 2 Diabetic retinopathy severity: Laterality: Proliferative retinopathy type: Qualified Code(s): E11.22 - Type 2 diabetes mellitus with diabetic chronic kidney disease; N18.3 - Chronic kidney disease, stage 3 (moderate) (2) Hypothyroidism Hypothyroidism type: unspecified Qualified Code(s): E03.9 - Hypothyroidism, unspecified (3) Acute renal failure superimposed on stage 3 chronic kidney disease Acute renal failure type: unspecified Qualified Code(s): N17.9 - Acute kidney failure, unspecified; N18.3 - Chronic kidney disease, stage 3 (moderate) (4) Sepsis Sepsis type: sepsis due to unspecified organism Qualified Code(s): A41.9 - Sepsis, unspecified organism (5) Altered mental status Altered mental status type: unspecified Coma depth: Coma timing: Qualified Code(s): R41.82 - Altered mental status, unspecified
[2018-04-11 15:11] LABS: Base Excess VBG -1.4 mEq/L; HCO3 VBG 23 mmol/L; Oxygen Saturation VBG < 60.0 %; PCO2 VBG 40 mmHg (38-50); PO2 VBG 27 mmHg; pH VBG 7.39 (7.36-7.41)
[2018-04-11 15:24] LABS: Albumin Level 2.3 gm/dl (3.4-5.0); BUN Creatinine Ratio 10.3 (10-20); Calcium 7.8 mg/dl (8.5-10.1); Creatinine Clr Calc Pharmacy 28.9 ml/min; Est GFR (African American) 45.6; Est GFR (Non-African American) 39.3; Potassium 3.7 mmol/L (3.5-5.1)
[2018-04-11 15:30] LABS: Albumin Globulin Ratio 0.5 (0.9-2); Bilirubin,Total 1.7 mg/dl (0.2-1); Globulin 4.3 gm/dl (2.5-4.0); Total Protein 6.6 gm/dl (6.4-8.2)
[2018-04-11 16:09] LABS: Cdiff Antigen Positive; Cdiff Toxin A+B Positive (Negative)
[2018-04-11] MEDS ORDERED: MENTHOL-ZINC OXIDE 360 APPLN/120 GM TUBE EXT PRN (16:37)
[2018-04-11] MEDS ORDERED: CARBOHYDRATES FOR HYPOGLYCEMIA PO PRN (16:37)
[2018-04-11] MEDS ORDERED: POLYETHYLENE (MIRALAX) 17 GM PACK PO PRN (16:37)
[2018-04-11] MEDS ORDERED: ACETAMINOPHEN 325 MG TAB PO PRN (16:37)
[2018-04-11] MEDS ORDERED: GLUCAGON FOR INJ 1 MG VIAL SQ PRN (16:37)
[2018-04-11] MEDS ORDERED: ONDANSETRON INJ 2 MG/ML 2 ML VIAL IV PRN (16:37)
[2018-04-11] MEDS ORDERED: ALUMINUM/MAGNESIUM SUSP 30 ML UDC PO PRN (16:37)
[2018-04-11] MEDS ORDERED: GLUCOSE 40% GEL 15 GM TUBE PO PRN (16:37)
[2018-04-11] MEDS ORDERED: GLUCOSE 10 TABS/TUBE PO PRN (16:37)
[2018-04-11] MEDS ORDERED: DEXTROSE 50% 50 ML SYRINGE IV PRN (16:37)
[2018-04-11] MEDS ORDERED: MAGNESIUM HYDROXIDE SUSP 30 ML UDC PO PRN (16:37)
[2018-04-11] MEDS ORDERED: PIPERACILL/TAZOBAC CONSULT ACTIVE PRN (16:37)
[2018-04-11] MEDS: D5W AND 1/2NSS 1,000 ML IV SCH (17:03)
[2018-04-11] MEDS: INSULIN ASPART 100 UNITS/ML 3 ML PEN SC SCH ×2 (17:12→20:30)
--- NOTE | 2018-04-11 17:19 | Pharmacy Report ---
Pharmacy Abx Initial Consult - Date of Service April 11, 2018 - Pharmacy Dosing Scope Date of Consult: 04/11/18 Consultation requested by: Treva Shaffer PA-C Pharmacy is consulted to initiate vancomycin/Zosyn IV dosing therapy, order appropriate labs and adjust drug dose/frequency. - Subjective The patient is a 87 year old M admitted on 04/11/18 14:23. - Objective Height: 5 ft 10 in Weight: 60.5 kg Vital Signs (Past 12hrs): Vital Signs Temp Pulse Pulse Resp BP BP Pulse Ox 04/11/18 16:02 38.1 C H 94 H 20 114/56 L 92 04/11/18 15:37 94 H 26 H 103/58 L 93 04/11/18 15:04 103 H 19 110/68 94 04/11/18 13:54 92 H 22 118/72 93 04/11/18 12:20 85 24 108/67 94 04/11/18 09:58 39.1 C H 101 H 30 H 161/140 H 95 Lab Results (24hrs): Laboratory Tests (24 Hours) 04/11/18 04/11/18 04/11/18 14:53 11:00 11:00 WBC 15.30 H Neut # (Auto) 12.93 H Creatinine 1.57 H 1.72 H Est Cr Clr Drug Dosing 28.9 26.4 Micro Results: 04/11/18 11:29 Blood Culture - Pending Blood 04/11/18 11:00 Blood Culture - Pending Blood - Risk Factors for Resistance * Hospitalization for 48 hours or more within the past 90 days * Antimicrobial use within the last 90 days (vancomycin, Keflex for Klebsiella bacteremia) - Assessment & Plan Assessment 87 year old M with history of recent admission for cholangitis s/p ERCP with stent and waldron-sensitive Klebsiella bacteremia. Plan vancomycin/Zosyn for treatment of empiric sepsis Vancomycin IV * Estimated PK Parameters: Vd 0.7 L/kg, Antonio 0.027 hr-1, t1/2 > 24 hours * Loading dose: 1800 mg (30 mg/kg) --> patient's weight during previous hospitalization was 71 kg (which may have been volume-overloaded) and this hospitalization patient is dehydrated. Had nursing double-check weight and 60 kg was appropriate. * Goal trough level for bacteremia : 15 to 20 mcg/mL * Random level ordered for 04/12/18 in the AM Piperacillin/tazobactam * 4.5 g bolus administered over 30 minutes, then 3.375 g IV extended infusion every 8 hours for CrCl greater than 20 mL/min Pharmacy will continue to follow and will adjust dose/frequency as necessary. Thank you.
[2018-04-11] MEDS ORDERED: LORazepam 0.5 MG TAB PO SCH ×2 (17:30→21:00)
--- NOTE | 2018-04-11 18:40 | Surgery Consultation ---
Date of Consultation April 11, 2018 Assessment & Plan (1) Cholelithiasis: pt is a 87 year old male who is S/P ERCP with stent placement, fever one day with diarrhea, posive C-diff IMP cholelithiasis, C-diff infection, no significant signs for acute cholecystitis, no emergent surgery intervention now, high WBC may relate to C-diff infection, GI consult for F/U S/P ERCP iv antibiotic repeat labs in am, will F/U pt's daughter agrees with the plan, I answered all questions, History of Present Illness Attending Physician: Jean Richardson MD Chief Complaint: Fever x 1 day. Primary Care Provider: Jacinto Root This is an 87 year old male with significant PMH of Advanced dementia, T2DM, HTN , hypothyroidism, deafness, blindness who presents to [facility] ED with fever x 1 day. Daughter who is caregiver of patient at bedside. He resides at home with /7 care. Patient was recently confined at [facility] 03/25-04/03/18 secondary to klebsiella bacteremia, acute cholangitis s/p ERCP with stent placement discharged home on 7 day course of oral keflex. Per daughter pt completed course of antibiotic therapy. History unable to be obtained from patient. Upon discharge patient had been doing well, tolerating po intake. No coughing or choking on foods. He eats pureed meals due to refusing to wear dentures. Approx 2 days ago had developed loose stools. When another caregiver checked on patient this a.m. noted him to be febrile at 103. Per daughter no other significant abnormality; however difficult to ascertain given patient underlying cognitive issues. She has noticed a moist cough that started today. I got a call for consult cholelithiasis, I reviewed pt's H/P with pt's daughter , pt has no abdominal pain, fever one day with diarrhea, small amount vomiting once today, C-diff positive today, Allergies Allergy/AdvReac Type Severity Reaction Status Date / Time No Known Allergies Allergy Unverified 04/11/18 11:56 Home Medications Home Medications Medication Instructions Recorded Confirmed Type acetaminophen [Tylenol Extra 500 mg PO Q6H PRN 03/26/18 04/11/18 History Strength] calcium polycarbophil 625 mg PO DAILY 03/26/18 04/11/18 History cetirizine 5 mg PO DAILY 03/26/18 04/11/18 History cholecalciferol (vitamin D3) 2,000 unit PO DAILY 03/26/18 04/11/18 History [Vitamin D3] cyanocobalamin (vitamin B-12) 500 mcg PO DAILY 03/26/18 04/11/18 History food supplemt, lactose-reduced 1 btl PO BID 03/26/18 04/11/18 History [Ensure Clear] food supplemt, lactose-reduced 1 btl PO DAILY 03/26/18 04/11/18 History [Ensure] levothyroxine 50 mcg PO QAM 03/26/18 04/11/18 History lorazepam 0.25 mg PO HS 03/26/18 04/11/18 History lorazepam 0.5 mg PO TID 03/26/18 04/11/18 History melatonin 6 mg PO HS PRN 03/26/18 04/11/18 History menthol-zinc oxide [Calmoseptine] 1 applic TOPICAL UD PRN 03/26/18 04/11/18 History quetiapine 25 mg PO HS 03/26/18 04/11/18 History sennosides 8.6 mg PO BID PRN 03/26/18 04/11/18 History potassium chloride 10 meq PO DAILY #30 tab 04/02/18 04/11/18 Rx Patient History Medical History Goals of care, counseling/discussion Encounter for pre-operative examination Discharge planning issues Limited code status, all resuscitation measures excluding chest compressions Acute renal failure superimposed on stage 3 chronic kidney disease (Acute) Severe sepsis (Acute) Cholangitis concurrent with and due to calculus of gallbladder (Acute) Altered mental status (Acute) DM (diabetes mellitus) (Chronic) HTN (hypertension) (Chronic) In past only Dementia (Chronic) Dehydration (Resolved) Hernia (Resolved) Hypothyroidism (Chronic) Gallstones Cholangitis (Resolved) Gram negative sepsis (Resolved) Hypotension (Resolved) Influenza A (Resolved) Sepsis associated hypotension (Resolved) on low dose vasopressor UTI (urinary tract infection) (Resolved) Surgical History Hx of inguinal hernia surgery (Chronic) Status post endoscopic retrograde cholangiopancreatography 03/26 Dr. Franco secondary to cholangitis Family History Other Family history non-contributory Social History Current Living Situation: Alone Current Living Situation Comment: Has 03/10 caregivers, including daughter Other Information That Helps Us Care for You: Yes (pt needs assist to amb to [place] , needs to be fed and encouraged to eat) Feels Safe at Home: Yes Smoking Status: Former smoker Do You Dip or Chew Tobacco: No Smoking End Date: quit smoking in early his 20's Second Hand Exposure: No Hx Alcohol Use: No Hx Substance Use: No Beliefs That Will Affect Care: None Preferred Language: Khmer Communication Ability: Impaired Communication Ability Comment: has dementia Review of Systems Constitutional: as per Subjective / HPI and + fever Ear, Nose, Mouth, Throat: as per Subjective / HPI Respiratory: as per Subjective / HPI Cardiovascular: as per Subjective / HPI Additional Comments: HTN Gastrointestinal: as per Subjective / HPI Genitourinary (Male): as per Subjective / HPI dementia Psychiatric: as per Subjective / HPI DM sepsis Physical Exam 2 Vital Signs (Past 24 Hours): Last Vital Signs Temp 36.8 C 04/11/18 16:37 Pulse 83 04/11/18 16:37 Resp 20 04/11/18 16:37 BP 114/56 L 04/11/18 16:02 Pulse Ox 95 04/11/18 16:37 Constitutional: WD/WN, vitals as above + ill appearing Neck: trachea midline, no thyromegaly Respiratory: normal respiratory effort, lungs clear to auscultation Cardiovascular: RRR, no murmur, no edema Rate/Rhythm: regular rate and regular rhythm Gastrointestinal (Abdomen): Percussion/Palpation: abdomen soft no tenderness, no distend, BS + Neurologic: patellar DTR's 2+ bilat, sensation intact awake Psychiatric: Orientation: alert Results & Data Laboratory Results Abnormal lab results 04/11/18 04/11/18 04/11/18 Range/Units 11:00 11:00 11:05 WBC 15.30 H (4.8-10.8) K/uL RBC 4.23 L (4.7-6.1) M/uL MCV 102.4 H (80-100) fL RDW Std Deviation 53.1 H (36.4-46.3) fL MPV 11.7 H (7.4-10.4) fL Immature Gran # (Auto) 0.04 H (0.00-0.02) K/uL Neut # (Auto) 12.93 H (1.4-6.5) K/uL [place] # (Auto) 0.91 H (0.11-0.59) K/uL Chloride (98-107) mmol/L Creatinine 1.72 H (0.6-1.4) mg/dl Glucose 112 H (70-99) mg/dl POC Glucose (70-99) POC Lactic Acid Otis (0.90-1.70) mmol/L Calcium (8.5-10.1) mg/dl Total Bilirubin 1.7 H (0.2-1) mg/dl Alkaline Phosphatase 138 H (45-117) U/L Albumin 2.9 L (3.4-5.0) gm/dl Globulin 5.0 H (2.5-4.0) gm/dl Albumin/Globulin Ratio 0.6 L (0.9-2) Urine Protein 1+ H (Negative) Urine RBC (Auto) 5-10 H (0-4) /hpf U Epithel Cells (Auto) 5-10 H (0-5) /lpf Stl C. diff Tox B Gene (Neg) Stl C.difficile Tox A&B (Negative) 04/11/18 04/11/18 04/11/18 Range/Units 11:07 14:35 14:53 WBC (4.8-10.8) K/uL RBC (4.7-6.1) M/uL MCV (80-100) fL RDW Std Deviation (36.4-46.3) fL MPV (7.4-10.4) fL Immature Gran # (Auto) (0.00-0.02) K/uL Neut # (Auto) (1.4-6.5) K/uL [place] # (Auto) (0.11-0.59) K/uL Chloride 112 H (98-107) mmol/L Creatinine 1.57 H (0.6-1.4) mg/dl Glucose 114 H (70-99) mg/dl POC Glucose (70-99) POC Lactic Acid [place]is 3.25 H (0.90-1.70) mmol/L Calcium 7.8 L (8.5-10.1) mg/dl Total Bilirubin 1.7 H (0.2-1) mg/dl Alkaline Phosphatase (45-117) U/L Albumin 2.3 L (3.4-5.0) gm/dl Globulin 4.3 H (2.5-4.0) gm/dl Albumin/Globulin Ratio 0.5 L (0.9-2) Urine Protein (Negative) Urine RBC (Auto) (0-4) /hpf U Epithel Cells (Auto) (0-5) /lpf Stl C. diff Tox B Gene Pos C.diff Toxin B A* (Neg) Stl C.difficile Tox A&B Positive A* (Negative) 04/11/18 Range/Units 16:44 WBC (4.8-10.8) K/uL RBC (4.7-6.1) M/uL MCV (80-100) fL RDW Std Deviation (36.4-46.3) fL MPV (7.4-10.4) fL Immature Gran # (Auto) (0.00-0.02) K/uL Neut # (Auto) (1.4-6.5) K/uL [place] # (Auto) (0.11-0.59) K/uL Chloride (98-107) mmol/L Creatinine (0.6-1.4) mg/dl Glucose (70-99) mg/dl POC Glucose 114 H (70-99) POC Lactic Acid [place] (0.90-1.70) mmol/L Calcium (8.5-10.1) mg/dl Total Bilirubin (0.2-1) mg/dl Alkaline Phosphatase (45-117) U/L Albumin (3.4-5.0) gm/dl Globulin (2.5-4.0) gm/dl Albumin/Globulin Ratio (0.9-2) Urine Protein (Negative) Urine RBC (Auto) (0-4) /hpf U Epithel Cells (Auto) (0-5) /lpf Stl C. diff Tox B Gene (Neg) Stl C.difficile Tox A&B (Negative) Diagnostic Findings CT SCAN OF THE ABDOMEN AND PELVIS WITHOUT CONTRAST CLINICAL HISTORY: Abdominal discomfort and fever. COMMON BILE DUCT CALCULUS COMPARISON STUDY: 03/26/2018 TECHNIQUE: CT scan of the abdomen and pelvis was performed from the lung bases to the proximal femurs. Images are reviewed in the axial, sagittal, and coronal planes. IV contrast was not administered for this examination. A dose lowering technique was utilized adhering to the principles of ALARA. CT DOSE: 980.70 mGycm FINDINGS: Lower chest: There is aneurysmal dilatation of the ascending thoracic aorta which measures 49 mm. There are coronary artery calcifications. The descending thoracic aorta measures 36 mm. There is a small pericardial effusion. Liver: There is pneumobilia. There is indwelling biliary enteric stent. No focal masses are visualized. Gallbladder: Cholelithiasis. The gallbladder is no longer distended. The previously identified common bile duct calculus is no longer visualized. Spleen: Normal in size and attenuation. Pancreas: Unremarkable. There is been interval resolution of the previously identified pancreatic ductal dilatation. Adrenal glands: Unremarkable. Kidneys: There is a right renal cortical calcification. There is a 33 mm lower pole left renal cyst. There is an indeterminate 14 mm left renal mass which exceeds water attenuation. Bowel: There are no transition zones indicate bowel obstruction. There is extensive colonic diverticulosis. There is minimal infiltration of the perisigmoid fat and minimal diverticulitis is suspected. There is mild bowel wall thickening involving the ascending colon. There is minimal infiltration the pericecal fat. A mild colitis is suspected. Peritoneum: There is no intraperitoneal free air or abdominal ascites. There are small fat-containing umbilical hernias. Vasculature: There is a 35mm infrarenal abdominal aortic aneurysm. Adenopathy: None. Pelvic viscera: There is air within the bladder likely iatrogenic. There are multiple large bladder calculi measuring up to 17 mm. The prostate is enlarged measuring 6 cm. Skeletal structures: There is bilateral L5 spondylolysis. There is a grade 1 spondylolisthesis of L5 on S1. IMPRESSION: 1. Interval placement of a biliary enteric stent. No common bile duct calculi are visualized. There is postprocedural pneumobilia. 2. Cholelithiasis. The gallbladder is no longer distended 3. No evidence of bowel obstruction. No evidence of free air 4. 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 Mild sigmoid diverticulitis 6. Mild bowel wall thickening involving the ascending colon with minimal infiltration of the pericecal fat. A mild colitis is suspected 7. Multiple bladder calculi 8. Prostamegaly 9. Indeterminate 14 mm left renal mass
[2018-04-11] MEDS ORDERED: LORazepam 2 MG/4 ML VIAL ONE (18:47)
[2018-04-11] MEDS ORDERED: LORazepam 0.25 MG/0.5 ML VIAL IV PRN (18:47)
[2018-04-11] MEDS ORDERED: LORazepam 0.5 MG/1 ML VIAL IV STA (18:47)
[2018-04-11] MEDS: PIPERACILLIN/TAZOBACTAM 3.375 GM in DEXTROSE 5% 100 ML IV SCH (18:54)
[2018-04-11] MEDS: metroNIDAZOLE 500 MG/100 ML BAG IV SCH (20:30)
[2018-04-11] MEDS: QUETIAPINE FUMARATE 25 MG TABLET PO SCH (20:33)
[2018-04-11] MEDS: VANCOMYCIN HCL 125 MG/2.5ML SOLN PO SCH ×2 (20:36→23:08)
[2018-04-11] MEDS: HEPARIN SOD 5,000 UNIT/0.5 ML VIAL SQ SCH (20:36)
[2018-04-11] MEDS: RASPBERRY SYRUP 5 ML UDP PO SCH ×2 (20:36→23:09)
[2018-04-12] MEDS: PIPERACILLIN/TAZOBACTAM 3.375 GM in DEXTROSE 5% 100 ML IV SCH ×2 (01:51→08:45)
[2018-04-12] MEDS: metroNIDAZOLE 500 MG/100 ML BAG IV SCH ×3 (05:50→21:46)
[2018-04-12] MEDS: RASPBERRY SYRUP 5 ML UDP PO SCH ×2 (05:51→23:41)
[2018-04-12] MEDS: VANCOMYCIN HCL 125 MG/2.5ML SOLN PO SCH ×2 (05:51→23:41)
[2018-04-12] MEDS ORDERED: LEVOTHYROXINE SODIUM 50 MCG TABLET PO SCH (06:30)
[2018-04-12] MEDS: HEPARIN SOD 5,000 UNIT/0.5 ML VIAL SQ SCH ×3 (06:39→21:47)
[2018-04-12 06:54] LABS: Hematocrit (blood only) 41.7 % (42-52); Hemoglobin 13.8 g/dL (14.0-18.0); Mean Corpuscular Hgb Conc 33.1 g/dL (32-36); Mean Corpuscular Volume 100.2 fL (80-100); Mean Platelet Volume 11.9 fL (7.4-10.4); Platelet Count 202 K/uL (130-400); RDW Coefficient of Variation 14.4 % (11.5-14.5); RDW Standard Deviation 52.1 fL (36.4-46.3); Red Blood Count 4.16 M/uL (4.7-6.1); White Blood Count 13.36 K/uL (4.8-10.8)
[2018-04-12 07:29] LABS: Basophils # (auto) 0.03 K/uL (0-0.2); Basophils % (auto) 0.2 %; Immature Granulocytes # (auto) 0.05 K/uL (0.00-0.02); Immature Granulocytes % (auto) 0.4 %; Lymphocytes # (auto) 0.77 K/uL (1.2-3.4); Lymphocytes % (auto) 5.8 %; Monocytes # (auto) 0.78 K/uL (0.11-0.59); Monocytes % (auto) 5.8 %; Neutrophils # (auto) 11.73 K/uL (1.4-6.5); Neutrophils % (auto) 87.8 %
[2018-04-12 07:37] LABS: Albumin Globulin Ratio 0.5 (0.9-2); Albumin Level 2.3 gm/dl (3.4-5.0); BUN Creatinine Ratio 7.8 (10-20); Bilirubin,Total 1.5 mg/dl (0.2-1); Calcium 8.2 mg/dl (8.5-10.1); Creatinine Clr Calc Pharmacy 18.4 ml/min; Est GFR (African American) 26.5; Est GFR (Non-African American) 22.9; Globulin 4.3 gm/dl (2.5-4.0); Magnesium 1.9 mg/dl (1.8-2.4); Potassium 2.7 mmol/L (3.5-5.1); Total Protein 6.6 gm/dl (6.4-8.2)
[2018-04-12] MEDS: INSULIN ASPART 100 UNITS/ML 3 ML PEN SC SCH ×4 (08:41→21:12)
[2018-04-12] MEDS: CETIRIZINE HCL 10 MG TABLET PO SCH (08:42)
[2018-04-12] MEDS: CALCIUM POLYCARBOPHIL 1 TAB PO SCH (08:42)
[2018-04-12] MEDS: POTASSIUM CHLORIDE 10 MEQ TABCR PO SCH (08:42)
--- NOTE | 2018-04-12 08:48 | Gastrointestinal Consultation ---
Date of Consultation April 12, 2018 Assessment & Plan (1) C. difficile diarrhea: 87 year old male with recent admission for klebsiella bacteremia, gallstones w/ cholangitis s/p ERCP on 03/26 w/ stent placement admitted from home for tachycardia, fever and diarrhea. Clinically no RUQ pain, CT shows good position of biliary stent and his liver function tests are normal - not suggestive of cholangitis. His CT does show bowel wall thickening involving the ascending colon and his c.diff returned positive. Perhaps his current febrile illness is secondary to his current severe c.diff infection w/ tachycardia, fevers, leukocytosis at 15, worsening [employer] JUICE 2.46 - Repeat lactic acid - Daily CBC - Blood culture, urine culture, chest XR - Appreciate collaboration w/ general surgery for cholecystectomy recommendations - ERCP in 4-8 weeks to remove stent - Severe C.diff infection w/ tachycardia, fevers, leukocytosis, elevated lactic acid - Difficultly with oral medication is reported - Rectal Vancomycin 500 QID - Continue IV Flagyl for now - Agree with ID consultation - Limit unnecessary ABX usage - Would D/C Zosyn if able - IVF maintenance - Would recommend to limit narcotic analgesia as this could precipitate ileus/ megacolon - GI to sign off. Thank you for allowing us to participate in the care of this patient. Please call with any acute changes, questions or concerns. Please see addendum below with additional recommendation from my supervising physician. Present on Admission?: Yes (2) History of cholangitis: Present on Admission?: No Supervising Physician Co-Signing Physician Notes I performed a history and physical examination of the patient, including specifically on physical exam - soft, nontender abdomen. I have discussed the patient's management with Lisa. Please refer to the nurse practitioner's note for the documented findings and plan of care. Recent Cholangitis treated with ABx and ERCP with biliary stenting, LFTs now normal. Presented with diarrhea, fever and leukocytosis, C.diff positive. He is not able to take PO meds due to AMS. Continue IV Flagyl and start rectal Vancomycin Avoid other ABx if not needed. History of Present Illness Reason for Consultation: fever, history of ERCP Requesting Physician: Dylan Attending Physician: Jean Richardson MD History of Present Illness 87 year old male with dementia, T2DM, HTN, hypothyroidism, cirrhosis and recent admission for gallstones, cholangitis s/p ERCP who presents from home for fever , diarrhea. GI is asked to evaluate given fever, recent ERCP. Pt was seen and evaluated, chart reviewed. No family at bedside. He is blind, deaf. Reluctant to full ROS. History if limited and obtained from chart review. Report of fever , diarrhea at home x 1 day which prompted ED visit. Was on ABX prior to arrival given recent stent placement. In the ED, CT shows good placement of biliary stent without any evidence of CBD stones and his LFTs are normal. There is wall thickening of the ascending colon ?diverticulitis, however c.diff returned positive over night. He continues to have fevers this AM. Denies all complaints. C.diff 04/11/18: positive CT 04/11/18: Interval placement of a biliary enteric stent. No common bile duct calculi are visualized. There is postprocedural pneumobilia. Cholelithiasis. The gallbladder is no longer distended No evidence of bowel obstruction. 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 A mild colitis is suspected Multiple bladder calculi Prostamegaly Indeterminate 14 mm left renal mass ERCP 03/26/18: The entire main bile duct was markedly dilated, with a stone causing an obstruction. Choledocholithiasis was found. Complete removal was accomplished by biliary sphincterotomy and balloon extraction. A biliary sphincterotomy was performed. The biliary tree was swept and pus was found. One plastic stent was placed into the common bile duct. Allergies Allergy/AdvReac Type Severity Reaction Status Date / Time No Known Allergies Allergy Unverified 04/11/18 11:56 Home Medications Home Medications Medication Instructions Recorded Confirmed Type acetaminophen [Tylenol Extra 500 mg PO Q6H PRN 03/26/18 04/11/18 History Strength] calcium polycarbophil 625 mg PO DAILY 03/26/18 04/11/18 History cetirizine 5 mg PO DAILY 03/26/18 04/11/18 History cholecalciferol (vitamin D3) 2,000 unit PO DAILY 03/26/18 04/11/18 History [Vitamin D3] cyanocobalamin (vitamin B-12) 500 mcg PO DAILY 03/26/18 04/11/18 History food supplemt, lactose-reduced 1 btl PO BID 03/26/18 04/11/18 History [Ensure Clear] food supplemt, lactose-reduced 1 btl PO DAILY 03/26/18 04/11/18 History [Ensure] levothyroxine 50 mcg PO QAM 03/26/18 04/11/18 History lorazepam 0.25 mg PO HS 03/26/18 04/11/18 History lorazepam 0.5 mg PO TID 03/26/18 04/11/18 History melatonin 6 mg PO HS PRN 03/26/18 04/11/18 History menthol-zinc oxide [Calmoseptine] 1 applic TOPICAL UD PRN 03/26/18 04/11/18 History quetiapine 25 mg PO HS 03/26/18 04/11/18 History sennosides 8.6 mg PO BID PRN 03/26/18 04/11/18 History potassium chloride 10 meq PO DAILY #30 tab 04/02/18 04/11/18 Rx Patient History Medical History Goals of care, counseling/discussion Encounter for pre-operative examination Discharge planning issues Limited code status, all resuscitation measures excluding chest compressions Acute renal failure superimposed on stage 3 chronic kidney disease (Acute) Severe sepsis (Acute) Cholangitis concurrent with and due to calculus of gallbladder (Acute) Altered mental status (Acute) DM (diabetes mellitus) (Chronic) HTN (hypertension) (Chronic) In past only Dementia (Chronic) Dehydration (Resolved) Hernia (Resolved) Hypothyroidism (Chronic) Gallstones Cholangitis (Resolved) Gram negative sepsis (Resolved) Hypotension (Resolved) Influenza A (Resolved) Sepsis associated hypotension (Resolved) on low dose vasopressor UTI (urinary tract infection) (Resolved) Surgical History Hx of inguinal hernia surgery (Chronic) Status post endoscopic retrograde cholangiopancreatography 03/26 Dr. Franco secondary to cholangitis Family History Other Family history non-contributory Social History Current Living Situation: Alone Current Living Situation Comment: Has 24/7 caregivers, including daughter Other Information That Helps Us Care for You: Yes (pt needs assist to amb to BR , needs to be fed and encouraged to eat) Feels Safe at Home: Yes Smoking Status: Former smoker Do You Dip or Chew Tobacco: No Smoking End Date: quit smoking in early his 20's Second Hand Exposure: No Hx Alcohol Use: No Hx Substance Use: No Beliefs That Will Affect Care: None Preferred Language: Latvian Communication Ability: Impaired Communication Ability Comment: has dementia Review of Systems Not obtained as pt refused to answer. Physical Exam 2 Vital Signs (Past 24 Hours): Last Vital Signs Temp 37.7 C H 04/12/18 02:20 Pulse 110 H 04/12/18 02:20 Resp 18 04/12/18 02:20 BP 136/83 04/12/18 02:20 Pulse Ox 94 04/12/18 02:20 Constitutional: + thin, + frail appearing and comfortable; no acute distress Respiratory: normal respiratory effort, lungs clear to auscultation Cardiovascular: Rate/Rhythm: + tachycardic Heart Sounds: normal S1 and normal S2 Gastrointestinal (Abdomen): Inspection/Auscultation: normal bowel sounds; abdomen not distended Percussion/Palpation: abdomen soft; abdomen nontender, no guarding and abdomen not rigid Skin: no rashes, warm and dry Results & Data Laboratory Results 04/12/18 04/12/18 04/12/18 Range/Units 06:27 06:27 06:27 WBC 13.36 H (4.8-10.8) K/uL RBC 4.16 L (4.7-6.1) M/uL Hgb 13.8 L (14.0-18.0) g/dL Hct 41.7 L (42-52) % MCV 100.2 H (80-100) fL MCH 33.2 (25-34) pg MCHC 33.1 (32-36) g/dL RDW Std Deviation 52.1 H (36.4-46.3) fL RDW Coeff of Dayana 14.4 (11.5-14.5) % Plt Count 202 (130-400) K/uL MPV 11.9 H (7.4-10.4) fL Immature Gran % (Auto) 0.4 % Neut % (Auto) 87.8 % Lymph % (Auto) 5.8 % Leslie % (Auto) 5.8 % Eos % (Auto) 0.0 % Baso % (Auto) 0.2 % Immature Gran # (Auto) 0.05 H (0.00-0.02) K/uL Neut # (Auto) 11.73 H (1.4-6.5) K/uL Lymph # (Auto) 0.77 L (1.2-3.4) K/uL Leslie # (Auto) 0.78 H (0.11-0.59) K/uL Eos # (Auto) 0.00 (0-0.5) K/uL Baso # (Auto) 0.03 (0-0.2) K/uL PT (9.0-12.0) Seconds INR (0.9-1.1) VBG pH (7.36-7.41) VBG pCO2 (38-50) mmHg VBG pO2 mmHg VBG HCO3 mmol/L VBG O2 Saturation % VBG Base Excess mEq/L Barometric Pressure mm/Hg Sodium 141 (136-145) mmol/L Potassium 2.7 L D (3.5-5.1) mmol/L Chloride 111 H (98-107) mmol/L Carbon Dioxide 21 (21-32) mmol/L Anion Gap 9.0 (3-11) BUN 19 H (7-18) mg/dl Creatinine 2.46 H D (0.6-1.4) mg/dl Est Cr Clr Drug Dosing 18.4 ml/min Est GFR ( Amer) 26.5 Est GFR (Non-Af Amer) 22.9 BUN/Creatinine Ratio 7.8 L (10-20) Glucose 157 H (70-99) mg/dl POC Glucose (70-99) POC Lactic Acid Otis (0.90-1.70) mmol/L Lactate (0.4-2.0) mmol/L Calcium 8.2 L (8.5-10.1) mg/dl Magnesium 1.9 (1.8-2.4) mg/dl Total Bilirubin 1.5 H (0.2-1) mg/dl AST 18 (15-37) U/L ALT 21 (12-78) U/L Alkaline Phosphatase 107 (45-117) U/L Troponin I (0-0.045) ng/ml Total Protein 6.6 (6.4-8.2) gm/dl Albumin 2.3 L (3.4-5.0) gm/dl Globulin 4.3 H (2.5-4.0) gm/dl Albumin/Globulin Ratio 0.5 L (0.9-2) Urine Color Urine Appearance (Clear) Urine pH (4.5-7.5) Ur Specific [place] (1.000-1.030) Urine Protein (Negative) Urine Glucose (UA) (Negative) Urine Ketones (Negative) Urine Blood (Negative) Urine Nitrite (Negative) Urine Bilirubin (Negative) Urine Urobilinogen (Negative) Ur Leukocyte Esterase (Negative) Urine WBC (Auto) (0-5) /hpf Urine RBC (Auto) (0-4) /hpf U Hyaline Cast (Auto) (0-5) /lpf U Epithel Cells (Auto) (0-5) /lpf Urine Bacteria (Auto) (Negative) Stl C. diff Tox B Gene (Neg) Stl C.difficile Tox A&B (Negative) Random Vancomycin 17.2 mcg/ml Influenza Type A Ag (Neg) Influenza Type B Ag (Neg) Blood Type Antibody Screen 04/11/18 04/11/18 04/11/18 Range/Units 20:19 16:44 14:53 WBC (4.8-10.8) K/uL RBC (4.7-6.1) M/uL Hgb (14.0-18.0) g/dL Hct (42-52) % MCV (80-100) fL MCH (25-34) pg MCHC (32-36) g/dL RDW Std Deviation (36.4-46.3) fL RDW Coeff of Dayana (11.5-14.5) % Plt Count (130-400) K/uL MPV (7.4-10.4) fL Immature Gran % (Auto) % Neut % (Auto) % Lymph % (Auto) % Leslie % (Auto) % Eos % (Auto) % Baso % (Auto) % Immature Gran # (Auto) (0.00-0.02) K/uL Neut # (Auto) (1.4-6.5) K/uL Lymph # (Auto) (1.2-3.4) K/uL Leslie # (Auto) (0.11-0.59) K/uL Eos # (Auto) (0-0.5) K/uL Baso # (Auto) (0-0.2) K/uL PT (9.0-12.0) Seconds INR (0.9-1.1) VBG pH (7.36-7.41) VBG pCO2 (38-50) mmHg VBG pO2 mmHg VBG HCO3 mmol/L VBG O2 Saturation % VBG Base Excess mEq/L Barometric Pressure mm/Hg Sodium (136-145) mmol/L Potassium (3.5-5.1) mmol/L Chloride (98-107) mmol/L Carbon Dioxide (21-32) mmol/L Anion Gap (3-11) BUN (7-18) mg/dl Creatinine (0.6-1.4) mg/dl Est Cr Clr Drug Dosing ml/min Est GFR ( Amer) Est GFR (Non-Af Amer) BUN/Creatinine Ratio (10-20) Glucose (70-99) mg/dl POC Glucose 129 H 114 H (70-99) POC Lactic Acid Otis (0.90-1.70) mmol/L Lactate (0.4-2.0) mmol/L Calcium (8.5-10.1) mg/dl Magnesium (1.8-2.4) mg/dl Total Bilirubin (0.2-1) mg/dl AST (15-37) U/L ALT (12-78) U/L Alkaline Phosphatase (45-117) U/L Troponin I (0-0.045) ng/ml Total Protein (6.4-8.2) gm/dl Albumin (3.4-5.0) gm/dl Globulin (2.5-4.0) gm/dl Albumin/Globulin Ratio (0.9-2) Urine Color Urine Appearance (Clear) Urine pH (4.5-7.5) Ur Specific [place] (1.000-1.030) Urine Protein (Negative) Urine Glucose (UA) (Negative) Urine Ketones (Negative) Urine Blood (Negative) Urine Nitrite (Negative) Urine Bilirubin (Negative) Urine Urobilinogen (Negative) Ur Leukocyte Esterase (Negative) Urine WBC (Auto) (0-5) /hpf Urine RBC (Auto) (0-4) /hpf U Hyaline Cast (Auto) (0-5) /lpf U Epithel Cells (Auto) (0-5) /lpf Urine Bacteria (Auto) (Negative) Stl C. diff Tox B Gene (Neg) Stl C.difficile Tox A&B (Negative) Random Vancomycin mcg/ml Influenza Type A Ag (Neg) Influenza Type B Ag (Neg) Blood Type B Positive Antibody Screen NEGATIVE 04/11/18 04/11/18 04/11/18 Range/Units 14:53 14:53 14:53 WBC (4.8-10.8) K/uL RBC (4.7-6.1) M/uL Hgb (14.0-18.0) g/dL Hct (42-52) % MCV (80-100) fL MCH (25-34) pg MCHC (32-36) g/dL RDW Std Deviation (36.4-46.3) fL RDW Coeff of Dayana (11.5-14.5) % Plt Count (130-400) K/uL MPV (7.4-10.4) fL Immature Gran % (Auto) % Neut % (Auto) % Lymph % (Auto) % Leslie % (Auto) % Eos % (Auto) % Baso % (Auto) % Immature Gran # (Auto) (0.00-0.02) K/uL Neut # (Auto) (1.4-6.5) K/uL Lymph # (Auto) (1.2-3.4) K/uL Leslie # (Auto) (0.11-0.59) K/uL Eos # (Auto) (0-0.5) K/uL Baso # (Auto) (0-0.2) K/uL PT (9.0-12.0) Seconds INR (0.9-1.1) VBG pH 7.39 (7.36-7.41) VBG pCO2 40 (38-50) mmHg VBG pO2 27 mmHg VBG HCO3 23 mmol/L VBG O2 Saturation < 60.0 % VBG Base Excess -1.4 mEq/L Barometric Pressure 731.4 mm/Hg Sodium 142 (136-145) mmol/L Potassium 3.7 (3.5-5.1) mmol/L Chloride 112 H (98-107) mmol/L Carbon Dioxide 24 (21-32) mmol/L Anion Gap 6.0 (3-11) BUN 16 (7-18) mg/dl Creatinine 1.57 H (0.6-1.4) mg/dl Est Cr Clr Drug Dosing 28.9 ml/min Est GFR ( Amer) 45.6 Est GFR (Non-Af Amer) 39.3 BUN/Creatinine Ratio 10.3 (10-20) Glucose 114 H (70-99) mg/dl POC Glucose (70-99) POC Lactic Acid Otis (0.90-1.70) mmol/L Lactate 1.6 (0.4-2.0) mmol/L Calcium 7.8 L (8.5-10.1) mg/dl Magnesium (1.8-2.4) mg/dl Total Bilirubin 1.7 H (0.2-1) mg/dl AST 21 (15-37) U/L ALT 22 (12-78) U/L Alkaline Phosphatase 112 (45-117) U/L Troponin I (0-0.045) ng/ml Total Protein 6.6 (6.4-8.2) gm/dl Albumin 2.3 L (3.4-5.0) gm/dl Globulin 4.3 H (2.5-4.0) gm/dl Albumin/Globulin Ratio 0.5 L (0.9-2) Urine Color Urine Appearance (Clear) Urine pH (4.5-7.5) Ur Specific [place] (1.000-1.030) Urine Protein (Negative) Urine Glucose (UA) (Negative) Urine Ketones (Negative) Urine Blood (Negative) Urine Nitrite (Negative) Urine Bilirubin (Negative) Urine Urobilinogen (Negative) Ur Leukocyte Esterase (Negative) Urine WBC (Auto) (0-5) /hpf Urine RBC (Auto) (0-4) /hpf U Hyaline Cast (Auto) (0-5) /lpf U Epithel Cells (Auto) (0-5) /lpf Urine Bacteria (Auto) (Negative) Stl C. diff Tox B Gene (Neg) Stl C.difficile Tox A&B (Negative) Random Vancomycin mcg/ml Influenza Type A Ag (Neg) Influenza Type B Ag (Neg) Blood Type Antibody Screen 04/11/18 04/11/18 04/11/18 Range/Units 14:35 11:15 11:07 WBC (4.8-10.8) K/uL RBC (4.7-6.1) M/uL Hgb (14.0-18.0) g/dL Hct (42-52) % MCV (80-100) fL MCH (25-34) pg MCHC (32-36) g/dL RDW Std Deviation (36.4-46.3) fL RDW Coeff of Dayana (11.5-14.5) % Plt Count (130-400) K/uL MPV (7.4-10.4) fL Immature Gran % (Auto) % Neut % (Auto) % Lymph % (Auto) % Leslie % (Auto) % Eos % (Auto) % Baso % (Auto) % Immature Gran # (Auto) (0.00-0.02) K/uL Neut # (Auto) (1.4-6.5) K/uL Lymph # (Auto) (1.2-3.4) K/uL Leslie # (Auto) (0.11-0.59) K/uL Eos # (Auto) (0-0.5) K/uL Baso # (Auto) (0-0.2) K/uL PT (9.0-12.0) Seconds INR (0.9-1.1) VBG pH (7.36-7.41) VBG pCO2 (38-50) mmHg VBG pO2 mmHg VBG HCO3 mmol/L VBG O2 Saturation % VBG Base Excess mEq/L Barometric Pressure mm/Hg Sodium (136-145) mmol/L Potassium (3.5-5.1) mmol/L Chloride (98-107) mmol/L Carbon Dioxide (21-32) mmol/L Anion Gap (3-11) BUN (7-18) mg/dl Creatinine (0.6-1.4) mg/dl Est Cr Clr Drug Dosing ml/min Est GFR ( Amer) Est GFR (Non-Af Amer) BUN/Creatinine Ratio (10-20) Glucose (70-99) mg/dl POC Glucose (70-99) POC Lactic Acid Otis 3.25 H (0.90-1.70) mmol/L Lactate (0.4-2.0) mmol/L Calcium (8.5-10.1) mg/dl Magnesium (1.8-2.4) mg/dl Total Bilirubin (0.2-1) mg/dl AST (15-37) U/L ALT (12-78) U/L Alkaline Phosphatase (45-117) U/L Troponin I (0-0.045) ng/ml Total Protein (6.4-8.2) gm/dl Albumin (3.4-5.0) gm/dl Globulin (2.5-4.0) gm/dl Albumin/Globulin Ratio (0.9-2) Urine Color Urine Appearance (Clear) Urine pH (4.5-7.5) Ur Specific [place] (1.000-1.030) Urine Protein (Negative) Urine Glucose (UA) (Negative) Urine Ketones (Negative) Urine Blood (Negative) Urine Nitrite (Negative) Urine Bilirubin (Negative) Urine Urobilinogen (Negative) Ur Leukocyte Esterase (Negative) Urine WBC (Auto) (0-5) /hpf Urine RBC (Auto) (0-4) /hpf U Hyaline Cast (Auto) (0-5) /lpf U Epithel Cells (Auto) (0-5) /lpf Urine Bacteria (Auto) (Negative) Stl C. diff Tox B Gene Pos C.diff Toxin B A* (Neg) Stl C.difficile Tox A&B Positive A* (Negative) Random Vancomycin mcg/ml Influenza Type A Ag Neg for Influ A (Neg) Influenza Type B Ag Neg for Influ B (Neg) Blood Type Antibody Screen 04/11/18 04/11/18 04/11/18 Range/Units 11:05 11:00 11:00 WBC (4.8-10.8) K/uL RBC (4.7-6.1) M/uL Hgb (14.0-18.0) g/dL Hct (42-52) % MCV (80-100) fL MCH (25-34) pg MCHC (32-36) g/dL RDW Std Deviation (36.4-46.3) fL RDW Coeff of Dayana (11.5-14.5) % Plt Count (130-400) K/uL MPV (7.4-10.4) fL Immature Gran % (Auto) % Neut % (Auto) % Lymph % (Auto) % Leslie % (Auto) % Eos % (Auto) % Baso % (Auto) % Immature Gran # (Auto) (0.00-0.02) K/uL Neut # (Auto) (1.4-6.5) K/uL Lymph # (Auto) (1.2-3.4) K/uL Leslie # (Auto) (0.11-0.59) K/uL Eos # (Auto) (0-0.5) K/uL Baso # (Auto) (0-0.2) K/uL PT 11.4 (9.0-12.0) Seconds INR 1.1 (0.9-1.1) VBG pH (7.36-7.41) VBG pCO2 (38-50) mmHg VBG pO2 mmHg VBG HCO3 mmol/L VBG O2 Saturation % VBG Base Excess mEq/L Barometric Pressure mm/Hg Sodium 140 (136-145) mmol/L Potassium 3.9 (3.5-5.1) mmol/L Chloride 107 (98-107) mmol/L Carbon Dioxide 27 (21-32) mmol/L Anion Gap 6.0 (3-11) BUN 17 (7-18) mg/dl Creatinine 1.72 H (0.6-1.4) mg/dl Est Cr Clr Drug Dosing 26.4 ml/min Est GFR ( Amer) 40.8 Est GFR (Non-Af Amer) 35.2 BUN/Creatinine Ratio 10.0 (10-20) Glucose 112 H (70-99) mg/dl POC Glucose (70-99) POC Lactic Acid Otis (0.90-1.70) mmol/L Lactate (0.4-2.0) mmol/L Calcium 8.8 (8.5-10.1) mg/dl Magnesium (1.8-2.4) mg/dl Total Bilirubin 1.7 H (0.2-1) mg/dl AST 21 (15-37) U/L ALT 26 (12-78) U/L Alkaline Phosphatase 138 H (45-117) U/L Troponin I < 0.015 (0-0.045) ng/ml Total Protein 7.9 (6.4-8.2) gm/dl Albumin 2.9 L (3.4-5.0) gm/dl Globulin 5.0 H (2.5-4.0) gm/dl Albumin/Globulin Ratio 0.6 L (0.9-2) Urine Color Dark Yellow Urine Appearance Clear (Clear) Urine pH 5.0 (4.5-7.5) Ur Specific [place] 1.016 (1.000-1.030) Urine Protein 1+ H (Negative) Urine Glucose (UA) Negative (Negative) Urine Ketones Negative (Negative) Urine Blood Negative (Negative) Urine Nitrite Negative (Negative) Urine Bilirubin Negative (Negative) Urine Urobilinogen Negative (Negative) Ur Leukocyte Esterase Negative (Negative) Urine WBC (Auto) 1-5 (0-5) /hpf Urine RBC (Auto) 5-10 H (0-4) /hpf U Hyaline Cast (Auto) 1-5 (0-5) /lpf U Epithel Cells (Auto) 5-10 H (0-5) /lpf Urine Bacteria (Auto) Negative (Negative) Stl C. diff Tox B Gene (Neg) Stl C.difficile Tox A&B (Negative) Random Vancomycin mcg/ml Influenza Type A Ag (Neg) Influenza Type B Ag (Neg) Blood Type Antibody Screen 04/11/18 Range/Units 11:00 WBC 15.30 H (4.8-10.8) K/uL RBC 4.23 L (4.7-6.1) M/uL Hgb 14.2 (14.0-18.0) g/dL Hct 43.3 (42-52) % MCV 102.4 H (80-100) fL MCH 33.6 (25-34) pg MCHC 32.8 (32-36) g/dL RDW Std Deviation 53.1 H (36.4-46.3) fL RDW Coeff of Dayana 14.2 (11.5-14.5) % Plt Count 246 (130-400) K/uL MPV 11.7 H (7.4-10.4) fL Immature Gran % (Auto) 0.3 % Neut % (Auto) 84.5 % Lymph % (Auto) 9.1 % Leslie % (Auto) 5.9 % Eos % (Auto) 0.1 % Baso % (Auto) 0.1 % Immature Gran # (Auto) 0.04 H (0.00-0.02) K/uL Neut # (Auto) 12.93 H (1.4-6.5) K/uL Lymph # (Auto) 1.39 (1.2-3.4) K/uL Leslie # (Auto) 0.91 H (0.11-0.59) K/uL Eos # (Auto) 0.01 (0-0.5) K/uL Baso # (Auto) 0.02 (0-0.2) K/uL PT (9.0-12.0) Seconds INR (0.9-1.1) VBG pH (7.36-7.41) VBG pCO2 (38-50) mmHg VBG pO2 mmHg VBG HCO3 mmol/L VBG O2 Saturation % VBG Base Excess mEq/L Barometric Pressure mm/Hg Sodium (136-145) mmol/L Potassium (3.5-5.1) mmol/L Chloride (98-107) mmol/L Carbon Dioxide (21-32) mmol/L Anion Gap (3-11) BUN (7-18) mg/dl Creatinine (0.6-1.4) mg/dl Est Cr Clr Drug Dosing ml/min Est GFR ( Amer) Est GFR (Non-Af Amer) BUN/Creatinine Ratio (10-20) Glucose (70-99) mg/dl POC Glucose (70-99) POC Lactic Acid Otis (0.90-1.70) mmol/L Lactate (0.4-2.0) mmol/L Calcium (8.5-10.1) mg/dl Magnesium (1.8-2.4) mg/dl Total Bilirubin (0.2-1) mg/dl AST (15-37) U/L ALT (12-78) U/L Alkaline Phosphatase (45-117) U/L Troponin I (0-0.045) ng/ml Total Protein (6.4-8.2) gm/dl Albumin (3.4-5.0) gm/dl Globulin (2.5-4.0) gm/dl Albumin/Globulin Ratio (0.9-2) Urine Color Urine Appearance (Clear) Urine pH (4.5-7.5) Ur Specific [place] (1.000-1.030) Urine Protein (Negative) Urine Glucose (UA) (Negative) Urine Ketones (Negative) Urine Blood (Negative) Urine Nitrite (Negative) Urine Bilirubin (Negative) Urine Urobilinogen (Negative) Ur Leukocyte Esterase (Negative) Urine WBC (Auto) (0-5) /hpf Urine RBC (Auto) (0-4) /hpf U Hyaline Cast (Auto) (0-5) /lpf U Epithel Cells (Auto) (0-5) /lpf Urine Bacteria (Auto) (Negative) Stl C. diff Tox B Gene (Neg) Stl C.difficile Tox A&B (Negative) Random Vancomycin mcg/ml Influenza Type A Ag (Neg) Influenza Type B Ag (Neg) Blood Type Antibody Screen
[2018-04-12] MEDS: POTASSIUM CHLORIDE / WTR 10 MEQ/100 ML PLCT IV SCH ×3 (10:16→11:49)
[2018-04-12] MEDS: SODIUM CHLORIDE 0.9% 1000ML 1,000 ML IV SCH (10:16)
--- NOTE | 2018-04-12 10:26 | Infectious Disease Consult ---
"Date of Consultation April 12, 2018 Assessment & Plan (1) C. difficile diarrhea: 87 yo male with C. difficile colitis. Given his increased chance of recurrent infection, will change vancomycin to fidaxomycin. Would continue IV metronidazole for now. Will follow. History of Present Illness Reason for Consultation: Sepsis, C.diff Attending Physician: Jean Richardson MD History of Present Illness History obtained from medical staff and medical records as patient unable to provide adequate history. 87-year-old male with dementia, previous history of diabetes mellitus, hypertension, hospitalized earlier this month with cholangitis with Klebsiella and was treated with IV antibiotics and biliary stenting. Was doing well until several days ago when developed progressively worsening diarrhea along with confusion and low-grade fever. Was brought to the hospital and has been found to have positive C. difficile toxin assay, and patient has been started on oral vancomycin and IV as well. CT scan of the abdomen does not show any evidence of active biliary tract infection. Allergies Allergy/AdvReac Type Severity Reaction Status Date / Time No Known Allergies Allergy Unverified 04/11/18 11:56 Home Medications Home Medications Medication Instructions Recorded Confirmed Type acetaminophen [Tylenol Extra 500 mg PO Q6H PRN 03/26/18 04/11/18 History Strength] calcium polycarbophil 625 mg PO DAILY 03/26/18 04/11/18 History cetirizine 5 mg PO DAILY 03/26/18 04/11/18 History cholecalciferol (vitamin D3) 2,000 unit PO DAILY 03/26/18 04/11/18 History [Vitamin D3] cyanocobalamin (vitamin B-12) 500 mcg PO DAILY 03/26/18 04/11/18 History food supplemt, lactose-reduced 1 btl PO BID 03/26/18 04/11/18 History [Ensure Clear] food supplemt, lactose-reduced 1 btl PO DAILY 03/26/18 04/11/18 History [Ensure] levothyroxine 50 mcg PO QAM 03/26/18 04/11/18 History lorazepam 0.25 mg PO HS 03/26/18 04/11/18 History lorazepam 0.5 mg PO TID 03/26/18 04/11/18 History melatonin 6 mg PO HS PRN 03/26/18 04/11/18 History menthol-zinc oxide [Calmoseptine] 1 applic TOPICAL UD PRN 03/26/18 04/11/18 History quetiapine 25 mg PO HS 03/26/18 04/11/18 History sennosides 8.6 mg PO BID PRN 03/26/18 04/11/18 History potassium chloride 10 meq PO DAILY #30 tab 04/02/18 04/11/18 Rx Patient History Medical History Goals of care, counseling/discussion Encounter for pre-operative examination Discharge planning issues Limited code status, all resuscitation measures excluding chest compressions Acute renal failure superimposed on stage 3 chronic kidney disease (Acute) Severe sepsis (Acute) Cholangitis concurrent with and due to calculus of gallbladder (Acute) Altered mental status (Acute) DM (diabetes mellitus) (Chronic) HTN (hypertension) (Chronic) In past only Dementia (Chronic) Dehydration (Resolved) Hernia (Resolved) Hypothyroidism (Chronic) Gallstones Cholangitis (Resolved) Gram negative sepsis (Resolved) Hypotension (Resolved) Influenza A (Resolved) Sepsis associated hypotension (Resolved) on low dose vasopressor UTI (urinary tract infection) (Resolved) Surgical History Hx of inguinal hernia surgery (Chronic) Status post endoscopic retrograde cholangiopancreatography 03/26 Dr. Franco secondary to cholangitis Family History Other Family history non-contributory Social History Current Living Situation: Alone Current Living Situation Comment: Has 03/10 caregivers, including daughter Other Information That Helps Us Care for You: Yes (pt needs assist to amb to BR , needs to be fed and encouraged to eat) Feels Safe at Home: Yes Smoking Status: Former smoker Do You Dip or Chew Tobacco: No Smoking End Date: quit smoking in early his 20's Second Hand Exposure: No Hx Alcohol Use: No Hx Substance Use: No Beliefs That Will Affect Care: None Preferred Language: [place] Communication Ability: Impaired Communication Ability Comment: has dementia Review of Systems Unable to obtain because of patient's mental status Physical Exam 2 Vital Signs (Past 24 Hours): Last Vital Signs Temp 37.7 C H 04/12/18 02:20 Pulse 110 H 04/12/18 02:20 Resp 18 01/31/19 02:20 BP 136/83 04/12/18 02:20 Pulse Ox 94 04/12/18 02:20 Constitutional: WD/WN, vitals as above comfortable; no acute distress Eyes: PERRL, conjunctivae normal, anicteric sclerae ENMT: external ear and nose normal, oropharynx normal Neck: trachea midline, no thyromegaly neck nontender Respiratory: normal respiratory effort, lungs clear to auscultation normal percussion; does not use accessory muscles Cardiovascular: Rate/Rhythm: regular rate and regular rhythm Heart Sounds: normal S1 and normal S2; no gallop, no murmur and no cardiac rub Vessels: normal peripheral pulses; no JVD Gastrointestinal (Abdomen): Inspection/Auscultation: abdomen normal to inspection Percussion/Palpation: + abdomen tender (Slight lower quadrant tenderness) and abdomen soft; no hepatosplenomegaly Musculoskeletal: no cyanosis or clubbing, extremities motor strength 5/5 Spine: thoracic spine normal to inspection and lumbar spine normal to inspection ; no cervical spinal tenderness Skin: no rashes, warm and dry normal turgor; no lesions Neurologic: patellar DTR's 2+ bilat, sensation intact no focal motor deficits Psychiatric: Orientation: alert; + not oriented x 3 Lymphatic: no cervical or axillary lymphadenopathy no inguinal lymphadenopathy Results & Data Laboratory Results Short CBC 04/11/18 04/12/18 Range/Units 11:00 06:27 WBC 15.30 H 13.36 H (4.8-10.8) K/uL Hgb 14.2 13.8 L (14.0-18.0) g/dL Hct 43.3 41.7 L (42-52) % Plt Count 246 202 (130-400) K/uL BMP 04/11/18 04/11/18 04/12/18 11:00 14:53 06:27 Sodium 140 142 141 Potassium 3.9 3.7 2.7 L D Chloride 107 112 H 111 H Carbon Dioxide 27 24 21 BUN 17 16 19 H Creatinine 1.72 H 1.57 H 2.46 H D Glucose 112 H 114 H 157 H Calcium 8.8 7.8 L 8.2 L Cardiac Enzymes 04/11/18 Range/Units 11:00 Troponin I < 0.015 (0-0.045) ng/ml Liver Function 04/11/18 04/11/18 04/12/18 Range/Units 11:00 14:53 06:27 Total Bilirubin 1.7 H 1.7 H 1.5 H (0.2-1) mg/dl AST 21 21 18 (15-37) U/L ALT 26 22 21 (12-78) U/L Alkaline Phosphatase 138 H 112 107 (45-117) U/L Albumin 2.9 L 2.3 L 2.3 L (3.4-5.0) gm/dl Urine 04/11/18 Range/Units 11:05 Urine Color Dark Yellow Urine Appearance Clear (Clear) Urine pH 5.0 (4.5-7.5) Ur Specific [place] 1.016 (1.000-1.030) Urine Protein 1+ H (Negative) Urine Glucose (UA) Negative (Negative) Diagnostic Findings Director: Bernard Santos M.D. Clinical Laboratory Report Name: DELICIA OSEI Acct: [id number] Status: ADM IN : 1930 [facility] [place] Date: Age: 87 Sex: M Dis Date: Loc: Telemetry [address] [place] [address]/Bed: [facility] Spec : [id number] Collected: 04/11/18-1435 Received: 04/11/18-[address]: Jatin Joy, D.O. Copy To: Thang Green M.D. Conrad, Donald E., D.O. Wong, Gary K., M.D. Self, Referred Ordered: Cdif Tox B PCR*, Cdiff toxin Test Result Flag Reference Site Cdif Tox B PCR | Pos C.diff Toxin B | CV | Neg | Cdiff Tox A+B | Positive | CV | Negative | | PCR Positive, Toxin Positive-Confirmed C.difficile infection Name: DELICIA OSEI : 1930 PAGE 1 Printed: 04/12/[address] SCAN OF THE ABDOMEN AND PELVIS WITHOUT CONTRAST CLINICAL HISTORY: Abdominal discomfort and fever. COMMON BILE DUCT CALCULUS COMPARISON STUDY: 03/26/2018 TECHNIQUE: CT scan of the abdomen and pelvis was performed from the lung bases to the proximal femurs. Images are reviewed in the axial, sagittal, and coronal planes. IV contrast was not administered for this examination. A dose lowering technique was utilized adhering to the principles of ALARA. CT DOSE: 980.70 mGycm FINDINGS: Lower chest: There is aneurysmal dilatation of the ascending thoracic aorta which measures 49 mm. There are coronary artery calcifications. The descending thoracic aorta measures 36 mm. There is a small pericardial effusion. Liver: There is pneumobilia. There is indwelling biliary enteric stent. No focal masses are visualized. Gallbladder: Cholelithiasis. The gallbladder is no longer distended. The previously identified common bile duct calculus is no longer visualized. Spleen: Normal in size and attenuation. Pancreas: Unremarkable. There is been interval resolution of the previously identified pancreatic ductal dilatation. Adrenal glands: Unremarkable. Kidneys: There is a right renal cortical calcification. There is a 33 mm lower pole left renal cyst. There is an indeterminate 14 mm left renal mass which exceeds water attenuation. Bowel: There are no transition zones indicate bowel obstruction. There is extensive colonic diverticulosis. There is minimal infiltration of the perisigmoid fat and minimal diverticulitis is suspected. There is mild bowel wall thickening involving the ascending colon. There is minimal infiltration the pericecal fat. A mild colitis is suspected. Peritoneum: There is no intraperitoneal free air or abdominal ascites. There are small fat-containing umbilical hernias. Vasculature: There is a 35mm infrarenal abdominal aortic aneurysm. Adenopathy: None. Pelvic viscera: There is air within the bladder likely iatrogenic. There are multiple large bladder calculi measuring up to 17 mm. The prostate is enlarged measuring 6 cm. Skeletal structures: There is bilateral L5 spondylolysis. There is a grade 1 spondylolisthesis of L5 on S1. IMPRESSION: 1. Interval placement of a biliary enteric stent. No common bile duct calculi are visualized. There is postprocedural pneumobilia. 2. Cholelithiasis. The gallbladder is no longer distended 3. No evidence of bowel obstruction. No evidence of free air 4. 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 Mild sigmoid diverticulitis 6. Mild bowel wall thickening involving the ascending colon with minimal infiltration of the pericecal fat. A mild colitis is suspected 7. Multiple bladder calculi 8. Prostamegaly 9. Indeterminate 14 mm left renal mass Electronically signed by: Derrick Shaw M.D. 04/11/2018 12:13 PM Dictated: 04/11/18 1201 Transcribed: 04/11/18 1201"
[2018-04-12] MEDS ORDERED: FIDAXOMICIN 200 MG TAB PO SCH (10:30)
--- NOTE | 2018-04-12 13:26 | Surgery Progress Note ---
Date of Service April 12, 2018 Assessment & Plan (1) C. difficile diarrhea: pt is a 87 year old male who is S/P ERCP with stent placement for history of acute cholangitis and septicemia. Recently discharged on 04/02/18. One day history of fever and diarrhea. C. diff positive. Leukocytosis improved to 13.36K today (15K), febrile this morning, persistent loose stools. No acute signs of acute cholecystitis, cholangitis, or choledocholithiasis. T. bili improving now down to 1.5. LFTS and ALK phos wnl. Plan: Since patient will not take anything orally, plan for vancomycin enemas and continue IV flagyl Recommend discontinuing other antibiotics Continue IV hydration Continue medical management No immediate plan for cholecystectomy given c. diff infection. (2) Cholelithiasis: pt is a 87 year old male who is S/P ERCP with stent placement for history of acute cholangitis and septecemia. Recently discharged on 04/02/18. One day history of fever and diarrhea. C. diff positive. (3) Sepsis: Most likely secondary to c. difficile infection no signs of acute cholecystitis, cholangitis, or choledocholithiasis Due for biliary stent removal in 4 weeks (4) History of cholangitis: s/p ERCP and stent placement (5) Acute alteration in mental status: Secondary to sepsis and c. diff infection Plan as above Subjective unable to obtain ROS, severe dementia, no family present in room Per nurse, patient still having constant loose stools. Will not take anything by mouth, spits it out. ID changed to Dificid however daughter could not even get him to take it with applesauce with a lot of force. GI came to evaluate patient, was informed that patient can not take anything orally. Plan to change to vancomycin enemas and continue IV Flagyl. Discontinue IV Zosyn. ERCP for stent removal in 4 weeks. Physical Exam 2 Vital Signs (Past 24 Hours): Last Vital Signs Temp 36.7 C 04/12/18 11:15 Pulse 81 04/12/18 11:15 Resp 18 04/12/18 11:15 BP 120/62 04/12/18 11:15 Pulse Ox 97 04/12/18 11:15 Constitutional: + thin, + cachectic and + altered mental status; no acute distress and not ill appearing Respiratory: normal respiratory effort; no respiratory distress and no labored breathing Gastrointestinal (Abdomen): Inspection/Auscultation: abdomen not distended unable to assess for tenderness given mental status. When trying to exam patient turns away and guards his abdomen with his arms. Skin: no rashes, warm and dry Neurologic: moves all extremities Results & Data Laboratory Results 04/12/18 04/12/18 04/12/18 Range/Units 11:17 06:27 06:27 WBC (4.8-10.8) K/uL RBC (4.7-6.1) M/uL Hgb (14.0-18.0) g/dL Hct (42-52) % MCV (80-100) fL MCH (25-34) pg MCHC (32-36) g/dL RDW Std Deviation (36.4-46.3) fL RDW Coeff of Dayana (11.5-14.5) % Plt Count (130-400) K/uL MPV (7.4-10.4) fL Immature Gran % (Auto) % Neut % (Auto) % Lymph % (Auto) % Love % (Auto) % Eos % (Auto) % Baso % (Auto) % Immature Gran # (Auto) (0.00-0.02) K/uL Neut # (Auto) (1.4-6.5) K/uL Lymph # (Auto) (1.2-3.4) K/uL Love # (Auto) (0.11-0.59) K/uL Eos # (Auto) (0-0.5) K/uL Baso # (Auto) (0-0.2) K/uL VBG pH (7.36-7.41) VBG pCO2 (38-50) mmHg VBG pO2 mmHg VBG HCO3 mmol/L VBG O2 Saturation % VBG Base Excess mEq/L Barometric Pressure mm/Hg Sodium 141 (136-145) mmol/L Potassium 2.7 L D (3.5-5.1) mmol/L Chloride 111 H (98-107) mmol/L Carbon Dioxide 21 (21-32) mmol/L Anion Gap 9.0 (3-11) BUN 19 H (7-18) mg/dl Creatinine 2.46 H D (0.6-1.4) mg/dl Est Cr Clr Drug Dosing 18.4 ml/min Est GFR ( Amer) 26.5 Est GFR (Non-Af Amer) 22.9 BUN/Creatinine Ratio 7.8 L (10-20) Glucose 157 H (70-99) mg/dl POC Glucose 120 H (70-99) Lactate (0.4-2.0) mmol/L Calcium 8.2 L (8.5-10.1) mg/dl Magnesium 1.9 (1.8-2.4) mg/dl Total Bilirubin 1.5 H (0.2-1) mg/dl AST 18 (15-37) U/L ALT 21 (12-78) U/L Alkaline Phosphatase 107 (45-117) U/L Total Protein 6.6 (6.4-8.2) gm/dl Albumin 2.3 L (3.4-5.0) gm/dl Globulin 4.3 H (2.5-4.0) gm/dl Albumin/Globulin Ratio 0.5 L (0.9-2) Stl C. diff Tox B Gene (Neg) Stl C.difficile Tox A&B (Negative) Random Vancomycin 17.2 mcg/ml Blood Type Antibody Screen 04/12/18 04/11/18 04/11/18 Range/Units 06:27 20:19 16:44 WBC 13.36 H (4.8-10.8) K/uL RBC 4.16 L (4.7-6.1) M/uL Hgb 13.8 L (14.0-18.0) g/dL Hct 41.7 L (42-52) % MCV 100.2 H (80-100) fL MCH 33.2 (25-34) pg MCHC 33.1 (32-36) g/dL RDW Std Deviation 52.1 H (36.4-46.3) fL RDW Coeff of Dayana 14.4 (11.5-14.5) % Plt Count 202 (130-400) K/uL MPV 11.9 H (7.4-10.4) fL Immature Gran % (Auto) 0.4 % Neut % (Auto) 87.8 % Lymph % (Auto) 5.8 % Love % (Auto) 5.8 % Eos % (Auto) 0.0 % Baso % (Auto) 0.2 % Immature Gran # (Auto) 0.05 H (0.00-0.02) K/uL Neut # (Auto) 11.73 H (1.4-6.5) K/uL Lymph # (Auto) 0.77 L (1.2-3.4) K/uL Love # (Auto) 0.78 H (0.11-0.59) K/uL Eos # (Auto) 0.00 (0-0.5) K/uL Baso # (Auto) 0.03 (0-0.2) K/uL VBG pH (7.36-7.41) VBG pCO2 (38-50) mmHg VBG pO2 mmHg VBG HCO3 mmol/L VBG O2 Saturation % VBG Base Excess mEq/L Barometric Pressure mm/Hg Sodium (136-145) mmol/L Potassium (3.5-5.1) mmol/L Chloride (98-107) mmol/L Carbon Dioxide (21-32) mmol/L Anion Gap (3-11) BUN (7-18) mg/dl Creatinine (0.6-1.4) mg/dl Est Cr Clr Drug Dosing ml/min Est GFR ( Amer) Est GFR (Non-Af Amer) BUN/Creatinine Ratio (10-20) Glucose (70-99) mg/dl POC Glucose 129 H 114 H (70-99) Lactate (0.4-2.0) mmol/L Calcium (8.5-10.1) mg/dl Magnesium (1.8-2.4) mg/dl Total Bilirubin (0.2-1) mg/dl AST (15-37) U/L ALT (12-78) U/L Alkaline Phosphatase (45-117) U/L Total Protein (6.4-8.2) gm/dl Albumin (3.4-5.0) gm/dl Globulin (2.5-4.0) gm/dl Albumin/Globulin Ratio (0.9-2) Stl C. diff Tox B Gene (Neg) Stl C.difficile Tox A&B (Negative) Random Vancomycin mcg/ml Blood Type Antibody Screen 04/11/18 04/11/18 04/11/18 Range/Units 14:53 14:53 14:53 WBC (4.8-10.8) K/uL RBC (4.7-6.1) M/uL Hgb (14.0-18.0) g/dL Hct (42-52) % MCV (80-100) fL MCH (25-34) pg MCHC (32-36) g/dL RDW Std Deviation (36.4-46.3) fL RDW Coeff of Dayana (11.5-14.5) % Plt Count (130-400) K/uL MPV (7.4-10.4) fL Immature Gran % (Auto) % Neut % (Auto) % Lymph % (Auto) % Love % (Auto) % Eos % (Auto) % Baso % (Auto) % Immature Gran # (Auto) (0.00-0.02) K/uL Neut # (Auto) (1.4-6.5) K/uL Lymph # (Auto) (1.2-3.4) K/uL Love # (Auto) (0.11-0.59) K/uL Eos # (Auto) (0-0.5) K/uL Baso # (Auto) (0-0.2) K/uL VBG pH 7.39 (7.36-7.41) VBG pCO2 40 (38-50) mmHg VBG pO2 27 mmHg VBG HCO3 23 mmol/L VBG O2 Saturation < 60.0 % VBG Base Excess -1.4 mEq/L Barometric Pressure 731.4 mm/Hg Sodium (136-145) mmol/L Potassium (3.5-5.1) mmol/L Chloride (98-107) mmol/L Carbon Dioxide (21-32) mmol/L Anion Gap (3-11) BUN (7-18) mg/dl Creatinine (0.6-1.4) mg/dl Est Cr Clr Drug Dosing ml/min Est GFR ( Amer) Est GFR (Non-Af Amer) BUN/Creatinine Ratio (10-20) Glucose (70-99) mg/dl POC Glucose (70-99) Lactate 1.6 (0.4-2.0) mmol/L Calcium (8.5-10.1) mg/dl Magnesium (1.8-2.4) mg/dl Total Bilirubin (0.2-1) mg/dl AST (15-37) U/L ALT (12-78) U/L Alkaline Phosphatase (45-117) U/L Total Protein (6.4-8.2) gm/dl Albumin (3.4-5.0) gm/dl Globulin (2.5-4.0) gm/dl Albumin/Globulin Ratio (0.9-2) Stl C. diff Tox B Gene (Neg) Stl C.difficile Tox A&B (Negative) Random Vancomycin mcg/ml Blood Type B Positive Antibody Screen NEGATIVE 04/11/18 04/11/18 Range/Units 14:53 14:35 WBC (4.8-10.8) K/uL RBC (4.7-6.1) M/uL Hgb (14.0-18.0) g/dL Hct (42-52) % MCV (80-100) fL MCH (25-34) pg MCHC (32-36) g/dL RDW Std Deviation (36.4-46.3) fL RDW Coeff of Dayana (11.5-14.5) % Plt Count (130-400) K/uL MPV (7.4-10.4) fL Immature Gran % (Auto) % Neut % (Auto) % Lymph % (Auto) % Love % (Auto) % Eos % (Auto) % Baso % (Auto) % Immature Gran # (Auto) (0.00-0.02) K/uL Neut # (Auto) (1.4-6.5) K/uL Lymph # (Auto) (1.2-3.4) K/uL Love # (Auto) (0.11-0.59) K/uL Eos # (Auto) (0-0.5) K/uL Baso # (Auto) (0-0.2) K/uL VBG pH (7.36-7.41) VBG pCO2 (38-50) mmHg VBG pO2 mmHg VBG HCO3 mmol/L VBG O2 Saturation % VBG Base Excess mEq/L Barometric Pressure mm/Hg Sodium 142 (136-145) mmol/L Potassium 3.7 (3.5-5.1) mmol/L Chloride 112 H (98-107) mmol/L Carbon Dioxide 24 (21-32) mmol/L Anion Gap 6.0 (3-11) BUN 16 (7-18) mg/dl Creatinine 1.57 H (0.6-1.4) mg/dl Est Cr Clr Drug Dosing 28.9 ml/min Est GFR ( Amer) 45.6 Est GFR (Non-Af Amer) 39.3 BUN/Creatinine Ratio 10.3 (10-20) Glucose 114 H (70-99) mg/dl POC Glucose (70-99) Lactate (0.4-2.0) mmol/L Calcium 7.8 L (8.5-10.1) mg/dl Magnesium (1.8-2.4) mg/dl Total Bilirubin 1.7 H (0.2-1) mg/dl AST 21 (15-37) U/L ALT 22 (12-78) U/L Alkaline Phosphatase 112 (45-117) U/L Total Protein 6.6 (6.4-8.2) gm/dl Albumin 2.3 L (3.4-5.0) gm/dl Globulin 4.3 H (2.5-4.0) gm/dl Albumin/Globulin Ratio 0.5 L (0.9-2) Stl C. diff Tox B Gene Pos C.diff Toxin B A* (Neg) Stl C.difficile Tox A&B Positive A* (Negative) Random Vancomycin mcg/ml Blood Type Antibody Screen _ (1) Sepsis Sepsis type: sepsis due to unspecified organism Qualified Code(s): A41.9 - Sepsis, unspecified organism
[2018-04-12] MEDS ORDERED: ACETAMINOPHEN 65 ML IV PRN (13:30)
[2018-04-12] MEDS: D5W AND 1/2NSS 1,000 ML IV SCH (13:41)
[2018-04-12] MEDS: VANCOMYCIN HCL 500 MG/100 ML ENEMA PR SCH ×2 (16:34→22:04)
--- NOTE | 2018-04-12 16:49 | Hospitalist Progress Note ---
Date of Service April 12, 2018 Assessment & Plan (1) Sepsis: Meet sepsis criteria with fever 39.1, tachycardia heart rate greater than 100, leukocytosis 15.3, lactic acidosis 3.25 Mostly related to C-diff CXR showed subtle right upper lung zone airspace opacities, likely representing a minimal pneumonitis. CT abd/pelvis showed mild sigmoid diverticulitis Received bread spectrum abx with IV zosyn and Vanco and IVF IV Vanco and Zosyn discontinued Blood cx pending stool for Cdiff positive ID on board recommeded to continue metronidazole and changed vancomycin oral to fidaxomycin due to increase chance of recurrent. Refused to take any oral med due to AMS Continue monitor closely (2) C. difficile diarrhea: Continue to have recurrent diarrhea Stool for Cdiff positive On Iv metronidazole Refused to take oral Vanco due to AMS Vancomycin was changed to fidaxomycin by ID due to increase chance of recurrent infection Oral fidaxomycin was change to Vanco enema since pt refused to take any oral med (3) Acute renal failure superimposed on stage 3 chronic kidney disease: Mostly related to dehydration from diarrhea and poor oral intake Creatine on admission 1.7, baseline cr 1.2-1.4 Received IVF Creatinine improved to 1.5 today Continue IVF Monitor BMP Avoid nephrotoxic agents (4) Altered mental status: Metabolic encephalopathy due to sepsis/cidf/DAVION Advanced dementia Will change oral med to IV if possible (5) DM (diabetes mellitus): A1C 03/26/18 6.2 Monitor BS (6) Hypothyroidism: Will change to IV levothyroxine (7) Hypokalemia: Mostly due to diarrhea K 2.7 this morning K repalced Check BMP later (8) History of cholangitis: S/P ERCP and stent placement in the last admission Case discussed with GI Stent function well ERCP in 4-8 weeks to remove stent (9) Cholelithiasis: No signs of acute cholecystitis, cholangitis, or choledocholithiasis Due for biliary stent removal in 4 weeks Will Plan for outpatient gallbladder removal as per surgery (10) DVT prophylaxis: On Heparin SQ CODE STATUS DNR Subjective Pt was seen and examined Lying in bed with no distress Refusing to take any oral med due to AMS Physical Exam 2 Vital Signs (Past 24 Hours): Last Vital Signs Temp 37.2 C 04/12/18 15:54 Pulse 75 04/12/18 15:54 Resp 16 04/12/18 15:54 BP 119/64 04/12/18 15:54 Pulse Ox 95 04/12/18 15:54 Physical Exam: General- No acute distress Head- atraumatic Eyes- Legally blind ENT- oropharynx clear Neck- supple, no JVD Lungs- clear to auscultation Heart- regular rhythm; no murmur Abdomen- +BS, Non tender Extremities- no calf tenderness Neuro- moves all 4 extremities, AMS Skin- warm & dry _ (1) DM (diabetes mellitus) Chronic kidney disease stage: stage 3 (moderate) Diabetes mellitus complication detail: with chronic kidney disease Diabetes mellitus complication status: with kidney complications Diabetes mellitus mcfp insulin use: without mcfp use Diabetes mellitus macular edema: Diabetes mellitus type: type 2 Diabetic retinopathy severity: Laterality: Proliferative retinopathy type: Qualified Code(s): E11.22 - Type 2 diabetes mellitus with diabetic chronic kidney disease; N18.3 - Chronic kidney disease, stage 3 (moderate) (2) Hypothyroidism Hypothyroidism type: unspecified Qualified Code(s): E03.9 - Hypothyroidism, unspecified (3) Acute renal failure superimposed on stage 3 chronic kidney disease Acute renal failure type: unspecified Qualified Code(s): N17.9 - Acute kidney failure, unspecified; N18.3 - Chronic kidney disease, stage 3 (moderate) (4) Sepsis Sepsis type: sepsis due to unspecified organism Qualified Code(s): A41.9 - Sepsis, unspecified organism (5) Altered mental status Altered mental status type: unspecified Coma depth: Coma timing: Qualified Code(s): R41.82 - Altered mental status, unspecified
[2018-04-12] MEDS ORDERED: LORazepam 0.25 MG/0.5 ML VIAL IV SCH (18:00)
[2018-04-12 18:40] LABS: BUN Creatinine Ratio 6.8 (10-20); Calcium 7.9 mg/dl (8.5-10.1); Creatinine Clr Calc Pharmacy 12.5 ml/min; Est GFR (African American) 16.5; Est GFR (Non-African American) 14.2; Potassium 3.4 mmol/L (3.5-5.1)
[2018-04-12] MEDS ORDERED: LORazepam 0.25 MG/0.5 ML VIAL IV PRN (19:24)
[2018-04-12] MEDS: QUETIAPINE FUMARATE 25 MG TABLET PO SCH ×2 (21:47→23:41)
[2018-04-13] MEDS: SODIUM CHLORIDE 0.9% 1000ML 1,000 ML IV SCH (00:28)
[2018-04-13] MEDS: HEPARIN SOD 5,000 UNIT/0.5 ML VIAL SQ SCH ×3 (05:19→21:21)
[2018-04-13] MEDS: metroNIDAZOLE 500 MG/100 ML BAG IV SCH ×3 (05:19→21:22)
[2018-04-13] MEDS: RASPBERRY SYRUP 5 ML UDP PO SCH ×5 (05:19→21:23)
[2018-04-13] MEDS: VANCOMYCIN HCL 125 MG/2.5ML SOLN PO SCH ×5 (05:19→21:23)
--- NOTE | 2018-04-13 07:31 | Nephrology Consultation ---
Date of Consultation April 13, 2018 Assessment & Plan (1) Acute renal failure superimposed on stage 3 chronic kidney disease: prior baseline 1.2; was 1.4 at 04/04 hospital d/c 1.7 on presentation, trending up to 3.6 last evening and 4.3 this am Not oliguric; UA shows no infection; CT w/o obstruction or acute renal process -prerenal versus ATN in the setting of C diff diarrhea, recurrent sepsis >>with lower K and hyperchloremia, changed IVF to normosol 150 mL / hr this am >>will order recheck of bmp now >> may need more K supplementation Present on Admission?: Yes History of Present Illness Attending Physician: Jean Richardson MD History of Present Illness 87 y/o M whom I'm asked to see for DAVION on CKD. PMH includes advanced dementia ( limited verbal capacity at baseline and w/ 03/10 care), legally blind, DM, HTN, hypothyroid, CKD3 w/ baseline creatinine 08/2017 12. Admitted here 03/26 - 04/03 w/ severe sepsis from Klebsiella bacteremia and obstructive cholangitis; c/b DAVION w/ presenting creatinine 1.9, peak 2.3, d/c creatinine 1.4. Baseline creatinine 1.2. He was readmitted 04/11 after presenting with recurrent sepsis, creatinine 1.7 and dx'd ultimately w/ C diff. His creatinine has rapidly trended upward since admission, w/ creat 3.6 yesterday and up to 4.3 today w/ K 2.8 and chloride 116. He is DNR and not oliguric. last evening he was bladder scanned for 600 urine mL and taylor placed > made 900 mL urine ON. Allergies Allergy/AdvReac Type Severity Reaction Status Date / Time No Known Allergies Allergy Unverified 04/11/18 11:56 Home Medications Home Medications Medication Instructions Recorded Confirmed Type acetaminophen [Tylenol Extra 500 mg PO Q6H PRN 03/26/18 04/11/18 History Strength] calcium polycarbophil 625 mg PO DAILY 03/26/18 04/11/18 History cetirizine 5 mg PO DAILY 03/26/18 04/11/18 History cholecalciferol (vitamin D3) 2,000 unit PO DAILY 03/26/18 04/11/18 History [Vitamin D3] cyanocobalamin (vitamin B-12) 500 mcg PO DAILY 03/26/18 04/11/18 History food supplemt, lactose-reduced 1 btl PO BID 03/26/18 04/11/18 History [Ensure Clear] food supplemt, lactose-reduced 1 btl PO DAILY 03/26/18 04/11/18 History [Ensure] levothyroxine 50 mcg PO QAM 03/26/18 04/11/18 History lorazepam 0.25 mg PO HS 03/26/18 04/11/18 History lorazepam 0.5 mg PO TID 03/26/18 04/11/18 History melatonin 6 mg PO HS PRN 03/26/18 04/11/18 History menthol-zinc oxide [Calmoseptine] 1 applic TOPICAL UD PRN 03/26/18 04/11/18 History quetiapine 25 mg PO HS 03/26/18 04/11/18 History sennosides 8.6 mg PO BID PRN 03/26/18 04/11/18 History potassium chloride 10 meq PO DAILY #30 tab 04/02/18 04/11/18 Rx Patient History Medical History Goals of care, counseling/discussion Encounter for pre-operative examination Discharge planning issues Limited code status, all resuscitation measures excluding chest compressions Acute renal failure superimposed on stage 3 chronic kidney disease (Acute) Severe sepsis (Acute) Cholangitis concurrent with and due to calculus of gallbladder (Acute) Altered mental status (Acute) DM (diabetes mellitus) (Chronic) HTN (hypertension) (Chronic) In past only Dementia (Chronic) Dehydration (Resolved) Hernia (Resolved) Hypothyroidism (Chronic) Gallstones Cholangitis (Resolved) Gram negative sepsis (Resolved) Hypotension (Resolved) Influenza A (Resolved) Sepsis associated hypotension (Resolved) on low dose vasopressor UTI (urinary tract infection) (Resolved) Surgical History Hx of inguinal hernia surgery (Chronic) Status post endoscopic retrograde cholangiopancreatography 03/26 Dr. Franco secondary to cholangitis Family History Other Family history non-contributory Social History Current Living Situation: Alone Current Living Situation Comment: Has 03/10 caregivers, including daughter Other Information That Helps Us Care for You: Yes (pt needs assist to amb to BR , needs to be fed and encouraged to eat) Feels Safe at Home: Yes Smoking Status: Former smoker Do You Dip or Chew Tobacco: No Smoking End Date: quit smoking in early his 20's Second Hand Exposure: No Hx Alcohol Use: No Hx Substance Use: No Beliefs That Will Affect Care: None Preferred Language: [place] Communication Ability: Impaired Communication Ability Comment: has dementia Review of Systems unable to obtain d/t clinical condition; pt is essentially nonverbal at baseline Physical Exam 2 Vital Signs (Past 24 Hours): Last Vital Signs Temp 36.8 C 04/13/18 05:14 Pulse 71 04/13/18 05:14 Resp 18 04/13/18 05:14 BP 113/64 04/13/18 05:14 Pulse Ox 98 04/13/18 05:14 Constitutional: well developed, + frail appearing and comfortable resting comfortably/ sleepin gbut arouseable on RA lyin gflat Eyes: opens eyes tracks ENMT: [place] Neck: supple Respiratory: minimal air mvt but clear Cardiovascular: Rate/Rhythm: regular rate and regular rhythm Extremities: no edema Gastrointestinal (Abdomen): Inspection/Auscultation: normal bowel sounds Percussion/Palpation: + abdomen tender, + guarding and abdomen soft Musculoskeletal: damon Skin: no rash Neurologic: minimally interactive, damon Genitourinary: taylor w/ ample tea colored urine Results & Data Laboratory Results Abnormal lab results 04/12/18 04/12/18 04/12/18 Range/Units 16:21 17:59 20:52 WBC (4.8-10.8) K/uL RBC (4.7-6.1) M/uL Hgb (14.0-18.0) g/dL Hct (42-52) % MCV (80-100) fL RDW Std Deviation (36.4-46.3) fL MPV (7.4-10.4) fL Sodium (136-145) mmol/L Potassium 3.4 L D (3.5-5.1) mmol/L Chloride 113 H (98-107) mmol/L BUN 25 H (7-18) mg/dl Creatinine 3.64 H D (0.6-1.4) mg/dl BUN/Creatinine Ratio 6.8 L (10-20) Glucose 124 H (70-99) mg/dl POC Glucose 106 H 110 H (70-99) Calcium 7.9 L (8.5-10.1) mg/dl Phosphorus (2.5-4.9) mg/dl Total Protein (6.4-8.2) gm/dl Albumin (3.4-5.0) gm/dl Globulin (2.5-4.0) gm/dl Albumin/Globulin Ratio (0.9-2) 04/13/18 04/13/18 Range/Units 07:22 07:22 WBC 12.31 H (4.8-10.8) K/uL RBC 3.81 L (4.7-6.1) M/uL Hgb 12.7 L (14.0-18.0) g/dL Hct 38.6 L (42-52) % MCV 101.3 H (80-100) fL RDW Std Deviation 53.5 H (36.4-46.3) fL MPV 11.6 H (7.4-10.4) fL Sodium 146 H (136-145) mmol/L Potassium 2.8 L D (3.5-5.1) mmol/L Chloride 116 H (98-107) mmol/L BUN 27 H (7-18) mg/dl Creatinine 4.27 H D (0.6-1.4) mg/dl BUN/Creatinine Ratio 6.3 L (10-20) Glucose (70-99) mg/dl POC Glucose (70-99) Calcium 8.0 L (8.5-10.1) mg/dl Phosphorus 5.6 H (2.5-4.9) mg/dl Total Protein 6.3 L (6.4-8.2) gm/dl Albumin 2.1 L (3.4-5.0) gm/dl Globulin 4.2 H (2.5-4.0) gm/dl Albumin/Globulin Ratio 0.5 L (0.9-2) Diagnostic Findings CT abd/pelvis non con 1. Interval placement of a biliary enteric stent. No common bile duct calculi are visualized. There is postprocedural pneumobilia. 2. Cholelithiasis. The gallbladder is no longer distended 3. No evidence of bowel obstruction. No evidence of free air 4. 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 Mild sigmoid diverticulitis 6. Mild bowel wall thickening involving the ascending colon with minimal infiltration of the pericecal fat. A mild colitis is suspected 7. Multiple bladder calculi 8. Prostamegaly 9. Indeterminate 14 mm left renal mass CXR possible subtle R pna _ (1) Acute renal failure superimposed on stage 3 chronic kidney disease Acute renal failure type: unspecified Qualified Code(s): N17.9 - Acute kidney failure, unspecified; N18.3 - Chronic kidney disease, stage 3 (moderate)
[2018-04-13 07:36] LABS: Hematocrit (blood only) 38.6 % (42-52); Hemoglobin 12.7 g/dL (14.0-18.0); Mean Corpuscular Hgb Conc 32.9 g/dL (32-36); Mean Corpuscular Volume 101.3 fL (80-100); Mean Platelet Volume 11.6 fL (7.4-10.4); Platelet Count 170 K/uL (130-400); RDW Coefficient of Variation 14.4 % (11.5-14.5); RDW Standard Deviation 53.5 fL (36.4-46.3); Red Blood Count 3.81 M/uL (4.7-6.1); White Blood Count 12.31 K/uL (4.8-10.8)
[2018-04-13 08:06] LABS: Albumin Level 2.1 gm/dl (3.4-5.0); BUN Creatinine Ratio 6.3 (10-20); Creatinine Clr Calc Pharmacy 10.2 ml/min; Est GFR (African American) 13.6; Est GFR (Non-African American) 11.7; Potassium 2.8 mmol/L (3.5-5.1)
[2018-04-13 08:09] LABS: Albumin Globulin Ratio 0.5 (0.9-2); Bilirubin,Total 0.9 mg/dl (0.2-1); Globulin 4.2 gm/dl (2.5-4.0); Phosphorus 5.6 mg/dl (2.5-4.9); Total Protein 6.3 gm/dl (6.4-8.2)
[2018-04-13] MEDS: INSULIN ASPART 100 UNITS/ML 3 ML PEN SC SCH ×4 (08:09→21:20)
[2018-04-13] MEDS: POTASSIUM CHLORIDE / WTR 10 MEQ/100 ML PLCT IV SCH ×5 (10:49→23:23)
[2018-04-13] MEDS: LEVOTHYROXINE SODIUM 25 MCG in SYRINGE 0 ML IV SCH (10:49)
[2018-04-13] MEDS: NORMOSOL-R 1,000 ML IV SCH ×2 (10:49→19:41)
[2018-04-13] MEDS: VANCOMYCIN HCL 500 MG/100 ML ENEMA PR SCH ×4 (10:50→21:23)
[2018-04-13] MEDS: POTASSIUM CHLORIDE 10 MEQ TABCR PO SCH (11:07)
[2018-04-13] MEDS: CETIRIZINE HCL 10 MG TABLET PO SCH (11:07)
[2018-04-13] MEDS: CALCIUM POLYCARBOPHIL 1 TAB PO SCH (11:08)
--- NOTE | 2018-04-13 11:15 | Hospitalist Progress Note ---
Date of Service April 13, 2018 Assessment & Plan (1) Sepsis: Meet sepsis criteria with fever 39.1, tachycardia heart rate greater than 100, leukocytosis 15.3, lactic acidosis 3.25 Mostly related to C-diff CXR showed subtle right upper lung zone airspace opacities, likely representing a minimal pneumonitis. CT abd/pelvis showed mild sigmoid diverticulitis Received bread spectrum abx with IV zosyn and Vanco and IVF IV Vanco and Zosyn discontinued Blood cx no growth stool for Cdiff positive ID on board recommeded to continue metronidazole and changed vancomycin oral to fidaxomycin due to increase chance of recurrent. Refused to take any oral med due to AMS Continue monitor closely (2) C. difficile diarrhea: Continue to have recurrent diarrhea Stool for Cdiff positive On Iv metronidazole Refused to take oral Vanco due to AMS Vancomycin was changed to fidaxomycin by ID due to increase chance of recurrent infection Oral fidaxomycin was change to Vanco enema since pt refused to take any oral med Fidaxomycin changed to vanco susp to add it to his drink so that he will be easy for him to take (3) Acute renal failure superimposed on stage 3 chronic kidney disease: Mostly related to dehydration from diarrhea and poor oral intake Creatinine on admission 1.7, baseline cr 1.2-1.4 Creatinine worsening to 4's today Nephrology on board IVF changed to normosol @ 150ml /hr Monitor BMP (4) Altered mental status: Metabolic encephalopathy due to sepsis/cidf/DAVION Advanced dementia Changed oral med to IV if possible (5) DM (diabetes mellitus): A1C 03/26/18 was 6.2 Monitor BS (6) Hypothyroidism: On IV levothyroxine (7) Hypokalemia: Mostly due to diarrhea K 2.8 this morning K repalced Check BMP later (8) History of cholangitis: S/P ERCP and stent placement in the last admission Case discussed with GI Stent function well ERCP in 4-8 weeks to remove stent (9) Cholelithiasis: No signs of acute cholecystitis, cholangitis, or choledocholithiasis Due for biliary stent removal in 4 weeks Will Plan for outpatient gallbladder removal as per surgery (10) DVT prophylaxis: On Heparin SQ CODE STATUS DNR Subjective Pt was seen and examined Lying in bed with no distress Seems comfortable in bed Physical Exam 2 Vital Signs (Past 24 Hours): Last Vital Signs Temp 36.8 C 04/13/18 05:14 Pulse 71 04/13/18 05:14 Resp 18 04/13/18 05:14 BP 113/64 04/13/18 05:14 Pulse Ox 98 04/13/18 05:14 Physical Exam: General- No acute distress Head- atraumatic Eyes- Legally blind ENT- oropharynx clear Neck- supple, no JVD Lungs- clear to auscultation Heart- regular rhythm; no murmur Abdomen- +BS, Non tender Extremities- no calf tenderness Neuro- moves all 4 extremities, AMS Skin- warm & dry _ (1) DM (diabetes mellitus) Chronic kidney disease stage: stage 3 (moderate) Diabetes mellitus complication detail: with chronic kidney disease Diabetes mellitus complication status: with kidney complications Diabetes mellitus long term care administrator insulin use: without usp use Diabetes mellitus macular edema: Diabetes mellitus type: type 2 Diabetic retinopathy severity: Laterality: Proliferative retinopathy type: Qualified Code(s): E11.22 - Type 2 diabetes mellitus with diabetic chronic kidney disease; N18.3 - Chronic kidney disease, stage 3 (moderate) (2) Hypothyroidism Hypothyroidism type: unspecified Qualified Code(s): E03.9 - Hypothyroidism, unspecified (3) Acute renal failure superimposed on stage 3 chronic kidney disease Acute renal failure type: unspecified Qualified Code(s): N17.9 - Acute kidney failure, unspecified; N18.3 - Chronic kidney disease, stage 3 (moderate) (4) Sepsis Sepsis type: sepsis due to unspecified organism Qualified Code(s): A41.9 - Sepsis, unspecified organism (5) Altered mental status Altered mental status type: unspecified Coma depth: Coma timing: Qualified Code(s): R41.82 - Altered mental status, unspecified
--- NOTE | 2018-04-13 11:42 | Surgery Progress Note ---
Date of Service April 13, 2018 Assessment & Plan (1) C. difficile diarrhea: pt is a 87 year old male who is S/P ERCP with stent placement for history of acute cholangitis and septicemia. Recently discharged on 04/02/18. C. diff positive. Leukocytosis improving. persistent loose stools. No acute signs of acute cholecystitis, cholangitis, or choledocholithiasis. T. bili improved now wnl at 0.9. LFTS and ALK phos wnl. Plan: No immediate plan for cholecystectomy given active c. diff infection. Recommend outpatient follow-up with Dr. Franco to discuss elective cholecystectomy prior to stent removal in 4 weeks by GI Continue C. diff treatment Our services signing off Dr. Franco has seen pt, agrees with above Subjective unable to obtain due to dementia and AMS lying in bed, comfortable, no distress Physical Exam 2 Vital Signs (Past 24 Hours): Last Vital Signs Temp 36.8 C 04/13/18 05:14 Pulse 71 04/13/18 05:14 Resp 18 04/13/18 05:14 BP 113/64 04/13/18 05:14 Pulse Ox 98 04/13/18 05:14 Constitutional: + thin, + cachectic and + altered mental status; no acute distress Respiratory: normal respiratory effort; no respiratory distress Gastrointestinal (Abdomen): Inspection/Auscultation: abdomen not distended Percussion/Palpation: abdomen soft Skin: no rashes, warm and dry Results & Data Laboratory Results 04/13/18 04/13/18 04/13/18 Range/Units 11:22 07:22 07:22 WBC 12.31 H (4.8-10.8) K/uL RBC 3.81 L (4.7-6.1) M/uL Hgb 12.7 L (14.0-18.0) g/dL Hct 38.6 L (42-52) % MCV 101.3 H (80-100) fL MCH 33.3 (25-34) pg MCHC 32.9 (32-36) g/dL RDW Std Deviation 53.5 H (36.4-46.3) fL RDW Coeff of Dayana 14.4 (11.5-14.5) % Plt Count 170 (130-400) K/uL MPV 11.6 H (7.4-10.4) fL Sodium 146 H (136-145) mmol/L Potassium 2.8 L D (3.5-5.1) mmol/L Chloride 116 H (98-107) mmol/L Carbon Dioxide 21 (21-32) mmol/L Anion Gap 10.0 (3-11) BUN 27 H (7-18) mg/dl Creatinine 4.27 H D (0.6-1.4) mg/dl Est Cr Clr Drug Dosing 10.2 ml/min Est GFR ( Amer) 13.6 Est GFR (Non-Af Amer) 11.7 BUN/Creatinine Ratio 6.3 L (10-20) Glucose 89 (70-99) mg/dl POC Glucose 90 (70-99) Calcium 8.0 L (8.5-10.1) mg/dl Phosphorus 5.6 H (2.5-4.9) mg/dl Total Bilirubin 0.9 D (0.2-1) mg/dl AST 19 (15-37) U/L ALT 19 (12-78) U/L Alkaline Phosphatase 92 (45-117) U/L Total Protein 6.3 L (6.4-8.2) gm/dl Albumin 2.1 L (3.4-5.0) gm/dl Globulin 4.2 H (2.5-4.0) gm/dl Albumin/Globulin Ratio 0.5 L (0.9-2) 04/13/18 04/12/18 04/12/18 Range/Units 07:10 20:52 17:59 WBC (4.8-10.8) K/uL RBC (4.7-6.1) M/uL Hgb (14.0-18.0) g/dL Hct (42-52) % MCV (80-100) fL MCH (25-34) pg MCHC (32-36) g/dL RDW Std Deviation (36.4-46.3) fL RDW Coeff of Dayana (11.5-14.5) % Plt Count (130-400) K/uL MPV (7.4-10.4) fL Sodium 144 (136-145) mmol/L Potassium 3.4 L D (3.5-5.1) mmol/L Chloride 113 H (98-107) mmol/L Carbon Dioxide 22 (21-32) mmol/L Anion Gap 10.0 (3-11) BUN 25 H (7-18) mg/dl Creatinine 3.64 H D (0.6-1.4) mg/dl Est Cr Clr Drug Dosing 12.5 ml/min Est GFR ( Amer) 16.5 Est GFR (Non-Af Amer) 14.2 BUN/Creatinine Ratio 6.8 L (10-20) Glucose 124 H (70-99) mg/dl POC Glucose 96 110 H (70-99) Calcium 7.9 L (8.5-10.1) mg/dl Phosphorus (2.5-4.9) mg/dl Total Bilirubin (0.2-1) mg/dl AST (15-37) U/L ALT (12-78) U/L Alkaline Phosphatase (45-117) U/L Total Protein (6.4-8.2) gm/dl Albumin (3.4-5.0) gm/dl Globulin (2.5-4.0) gm/dl Albumin/Globulin Ratio (0.9-2) 04/12/18 Range/Units 16:21 WBC (4.8-10.8) K/uL RBC (4.7-6.1) M/uL Hgb (14.0-18.0) g/dL Hct (42-52) % MCV (80-100) fL MCH (25-34) pg MCHC (32-36) g/dL RDW Std Deviation (36.4-46.3) fL RDW Coeff of Dayana (11.5-14.5) % Plt Count (130-400) K/uL MPV (7.4-10.4) fL Sodium (136-145) mmol/L Potassium (3.5-5.1) mmol/L Chloride (98-107) mmol/L Carbon Dioxide (21-32) mmol/L Anion Gap (3-11) BUN (7-18) mg/dl Creatinine (0.6-1.4) mg/dl Est Cr Clr Drug Dosing ml/min Est GFR ( Amer) Est GFR (Non-Af Amer) BUN/Creatinine Ratio (10-20) Glucose (70-99) mg/dl POC Glucose 106 H (70-99) Calcium (8.5-10.1) mg/dl Phosphorus (2.5-4.9) mg/dl Total Bilirubin (0.2-1) mg/dl AST (15-37) U/L ALT (12-78) U/L Alkaline Phosphatase (45-117) U/L Total Protein (6.4-8.2) gm/dl Albumin (3.4-5.0) gm/dl Globulin (2.5-4.0) gm/dl Albumin/Globulin Ratio (0.9-2)
--- NOTE | 2018-04-13 15:09 | Infectious Disease Progress Nt ---
Date of Service April 13, 2018 Assessment & Plan (1) C. difficile diarrhea: Patient with C. difficile colitis, refusing oral meds use of vancomycin enemas and IV metronidazole. Would restart on fidaxomicin once taking oral medications again. Will follow. Subjective Patient seen in follow-up for C. difficile colitis. Still unable to provide any history. Refusing to take oral medicines, Vanco enema started. Remains afebrile. Review of Systems Unobtainable due to cognitive status Physical Exam 2 Vital Signs (Past 24 Hours): Last Vital Signs Temp 36.9 C 04/13/18 13:40 Pulse 70 04/13/18 13:40 Resp 16 04/13/18 13:40 BP 104/62 04/13/18 13:40 Pulse Ox 98 04/13/18 05:14 Constitutional: WD/WN, vitals as above comfortable; no acute distress Eyes: PERRL, conjunctivae normal, anicteric sclerae ENMT: external ear and nose normal, oropharynx normal Neck: trachea midline, no thyromegaly neck nontender Respiratory: normal respiratory effort, lungs clear to auscultation normal percussion; does not use accessory muscles Cardiovascular: Rate/Rhythm: regular rate and regular rhythm Heart Sounds: normal S1 and normal S2; no gallop, no murmur and no cardiac rub Vessels: normal peripheral pulses; no JVD Gastrointestinal (Abdomen): Inspection/Auscultation: abdomen normal to inspection Percussion/Palpation: + abdomen tender (Slight lower quadrant tenderness) and abdomen soft; no hepatosplenomegaly Musculoskeletal: no cyanosis or clubbing, extremities motor strength 5/5 Spine: thoracic spine normal to inspection and lumbar spine normal to inspection ; no cervical spinal tenderness Skin: no rashes, warm and dry normal turgor; no lesions Neurologic: patellar DTR's 2+ bilat, sensation intact no focal motor deficits Psychiatric: Orientation: alert; + not oriented x 3 Lymphatic: no cervical or axillary lymphadenopathy no inguinal lymphadenopathy Results & Data Laboratory Results Short CBC 04/13/18 Range/Units 07:22 WBC 12.31 H (4.8-10.8) K/uL Hgb 12.7 L (14.0-18.0) g/dL Hct 38.6 L (42-52) % Plt Count 170 (130-400) K/uL [facility] 04/12/18 04/13/18 17:59 07:22 Sodium 144 146 H Potassium 3.4 L D 2.8 L D Chloride 113 H 116 H Carbon Dioxide 22 21 BUN 25 H 27 H Creatinine 3.64 H D 4.27 H D Glucose 124 H 89 Calcium 7.9 L 8.0 L Liver Function 04/13/18 Range/Units 07:22 Total Bilirubin 0.9 D (0.2-1) mg/dl AST 19 (15-37) U/L ALT 19 (12-78) U/L Alkaline Phosphatase 92 (45-117) U/L Albumin 2.1 L (3.4-5.0) gm/dl Diagnostic Findings Microbiology 04/11/18 14:35 Stool Escherichia coli Shiga Toxins - Preliminary 04/11/18 14:35 Stool Stool Culture - Preliminary No Salmonella isolated to date, No Shigella isolated to date, No Campylobacter jejuni isolated to date. 04/11/18 11:29 Blood Blood Culture - Preliminary No growth to date. 04/11/18 11:00 Blood Blood Culture - Preliminary No growth to date.
[2018-04-13 18:29] LABS: BUN Creatinine Ratio 6.6 (10-20); Calcium 7.6 mg/dl (8.5-10.1); Creatinine Clr Calc Pharmacy 10.3 ml/min; Est GFR (African American) 13.8; Est GFR (Non-African American) 11.9
[2018-04-13 19:54] LABS: Potassium 2.9 mmol/L (3.5-5.1)
[2018-04-13] MEDS ORDERED: MAGNESIUM SULFATE / D5W 1 GM/100 ML BAG IV ONE (20:30)
[2018-04-13] MEDS: QUETIAPINE FUMARATE 25 MG TABLET PO SCH (21:23)
[2018-04-14] MEDS: POTASSIUM CHLORIDE / WTR 10 MEQ/100 ML PLCT IV SCH ×3 (00:30→02:35)
[2018-04-14] MEDS: metroNIDAZOLE 500 MG/100 ML BAG IV SCH ×3 (04:58→23:00)
[2018-04-14] MEDS: HEPARIN SOD 5,000 UNIT/0.5 ML VIAL SQ SCH ×3 (04:59→22:56)
[2018-04-14 07:57] LABS: BUN Creatinine Ratio 6.9 (10-20); Calcium 7.7 mg/dl (8.5-10.1); Creatinine Clr Calc Pharmacy 11.6 ml/min; Est GFR (African American) 15.9; Est GFR (Non-African American) 13.7; Potassium 3.5 mmol/L (3.5-5.1)
[2018-04-14] MEDS: NORMOSOL-R 1,000 ML IV SCH ×4 (09:02→16:31)
[2018-04-14] MEDS: CETIRIZINE HCL 10 MG TABLET PO SCH (09:03)
[2018-04-14] MEDS: RASPBERRY SYRUP 5 ML UDP PO SCH ×4 (09:03→22:48)
[2018-04-14] MEDS: LEVOTHYROXINE SODIUM 25 MCG in SYRINGE 0 ML IV SCH (09:04)
[2018-04-14] MEDS: VANCOMYCIN HCL 125 MG/2.5ML SOLN PO SCH ×4 (09:04→22:48)
[2018-04-14] MEDS: CALCIUM POLYCARBOPHIL 1 TAB PO SCH (09:04)
[2018-04-14] MEDS: POTASSIUM CHLORIDE 10 MEQ TABCR PO SCH (09:05)
[2018-04-14] MEDS: INSULIN ASPART 100 UNITS/ML 3 ML PEN SC SCH ×4 (09:21→22:54)
[2018-04-14] MEDS: VANCOMYCIN HCL 500 MG/100 ML ENEMA PR SCH ×4 (09:25→22:56)
--- NOTE | 2018-04-14 17:20 | Hospitalist Progress Note ---
Date of Service April 14, 2018 Assessment & Plan (1) Sepsis: Meet sepsis criteria with fever 39.1, tachycardia heart rate greater than 100, leukocytosis 15.3, lactic acidosis 3.25 Mostly related to C-diff CXR showed subtle right upper lung zone airspace opacities, likely representing a minimal pneumonitis. CT abd/pelvis showed mild sigmoid diverticulitis Received bread spectrum abx with IV zosyn and Vanco and IVF IV Vanco and Zosyn discontinued Blood cx no growth stool for Cdiff positive ID on board recommeded to continue metronidazole and changed vancomycin oral to fidaxomycin due to increase chance of recurrent. Refused to take any oral med due to AMS Continue monitor closely daughter has been trying for him to take the Vanco susp since with his drink Will change to Fidaxomycin once able to take tab (2) C. difficile diarrhea: Continue to have recurrent diarrhea Stool for Cdiff positive On Iv metronidazole Refused to take oral Vanco due to AMS Vancomycin was changed to fidaxomycin by ID due to increase chance of recurrent infection Oral fidaxomycin was change to Vanco enema since pt refused to take any oral med Fidaxomycin changed to vanco susp to add it to his drink so that he will be easy for him to take Diarrhea has been improves as per nurse Will change to Fidaxomycin once able to take tab (3) Acute renal failure superimposed on stage 3 chronic kidney disease: Mostly related to dehydration from diarrhea and poor oral intake Creatinine on admission 1.7, baseline cr 1.2-1.4 Creatinine 3.7 today Nephrology on board [place] IVF changed to normosol @ 150ml /hr Monitor BMP (4) Altered mental status: Metabolic encephalopathy due to sepsis/cidf/DAVION Advanced dementia Changed oral med to IV if possible (5) DM (diabetes mellitus): A1C 03/26/18 was 6.2 Monitor BS (6) Hypothyroidism: On IV levothyroxine (7) Hypokalemia: Mostly due to diarrhea K 3.5 this morning Continue monitor BMP (8) History of cholangitis: S/P ERCP and stent placement in the last admission Case discussed with GI Stent function well ERCP in 4-8 weeks to remove stent (9) Cholelithiasis: No signs of acute cholecystitis, cholangitis, or choledocholithiasis Due for biliary stent removal in 4 weeks Will Plan for outpatient gallbladder removal as per surgery (10) DVT prophylaxis: On Heparin SQ CODE STATUS DNR Disposition Continue monitor Subjective Pt was seen and examined Lying in bed with no distress Seems comfortable in bed Daughter was at bedside early and after multiple attempt she was able to make him swallow the vanco susp His diarrhea has been improves Only has 1 episode of diarrhea for today so far Physical Exam 2 Vital Signs (Past 24 Hours): Last Vital Signs Temp 36.6 C 04/14/18 16:21 Pulse 59 L 04/14/18 16:21 Resp 22 04/14/18 16:21 BP 134/63 04/14/18 16:21 Pulse Ox 95 04/14/18 16:21 Physical Exam: General- No acute distress Head- atraumatic Eyes- Legally blind ENT- oropharynx clear Neck- supple, no JVD Lungs- clear to auscultation Heart- regular rhythm; no murmur Abdomen- +BS, Non tender Extremities- no calf tenderness Neuro- moves all 4 extremities, AMS Skin- warm & dry _ (1) DM (diabetes mellitus) Chronic kidney disease stage: stage 3 (moderate) Diabetes mellitus complication detail: with chronic kidney disease Diabetes mellitus complication status: with kidney complications Diabetes mellitus alf insulin use: without manager aerospace use Diabetes mellitus macular edema: Diabetes mellitus type: type 2 Diabetic retinopathy severity: Laterality: Proliferative retinopathy type: Qualified Code(s): E11.22 - Type 2 diabetes mellitus with diabetic chronic kidney disease; N18.3 - Chronic kidney disease, stage 3 (moderate) (2) Hypothyroidism Hypothyroidism type: unspecified Qualified Code(s): E03.9 - Hypothyroidism, unspecified (3) Acute renal failure superimposed on stage 3 chronic kidney disease Acute renal failure type: unspecified Qualified Code(s): N17.9 - Acute kidney failure, unspecified; N18.3 - Chronic kidney disease, stage 3 (moderate) (4) Sepsis Sepsis type: sepsis due to unspecified organism Qualified Code(s): A41.9 - Sepsis, unspecified organism (5) Altered mental status Altered mental status type: unspecified Coma depth: Coma timing: Qualified Code(s): R41.82 - Altered mental status, unspecified
[2018-04-14 19:19] LABS: BUN Creatinine Ratio 7.2 (10-20); Calcium 7.8 mg/dl (8.5-10.1); Creatinine Clr Calc Pharmacy 12.5 ml/min; Est GFR (African American) 17.3; Est GFR (Non-African American) 14.9; Potassium 3.4 mmol/L (3.5-5.1)
[2018-04-14] MEDS: QUETIAPINE FUMARATE 25 MG TABLET PO SCH (22:48)
[2018-04-14] MEDS ORDERED: HALOPERIDOL LACTATE 5 MG/ML 1 ML VIAL IM PRN (23:30)
[2018-04-15 00:04] LABS: Basophils # (auto) 0.04 K/uL (0-0.2); Basophils % (auto) 0.5 %; Eosinophils # (auto) 0.19 K/uL (0-0.5); Eosinophils % (auto) 2.2 %; Hematocrit (blood only) 34.8 % (42-52); Hemoglobin 11.6 g/dL (14.0-18.0); Immature Granulocytes # (auto) 0.02 K/uL (0.00-0.02); Immature Granulocytes % (auto) 0.2 %; Lymphocytes # (auto) 1.15 K/uL (1.2-3.4); Lymphocytes % (auto) 13.6 %; Mean Corpuscular Hgb Conc 33.3 g/dL (32-36); Mean Corpuscular Volume 99.7 fL (80-100); Mean Platelet Volume 11.3 fL (7.4-10.4); Monocytes # (auto) 0.58 K/uL (0.11-0.59); Monocytes % (auto) 6.9 %; Neutrophils # (auto) 6.47 K/uL (1.4-6.5); Neutrophils % (auto) 76.6 %; Platelet Count 161 K/uL (130-400); RDW Coefficient of Variation 14.4 % (11.5-14.5); RDW Standard Deviation 51.5 fL (36.4-46.3); Red Blood Count 3.49 M/uL (4.7-6.1); White Blood Count 8.45 K/uL (4.8-10.8)
[2018-04-15] MEDS: NORMOSOL-R 1,000 ML IV SCH ×2 (01:29→11:53)
--- NOTE | 2018-04-15 01:47 | Hospitalist Progress Note ---
Date of Service April 15, 2018 Subjective Made aware by RN of hematuria following patient agitated pulling on [place] catheter. Hemoglobin drop to from 11.6 from 12.7 in a.m. AP Traumatic hematuria Hemoglobin drop Hold heparin subcu for now Trend H&H Mechanical restraints as needed Urology consult in a.m. if with persistent hematuria. Will relay to AM provider. Physical Exam 2 Vital Signs (Past 24 Hours): Last Vital Signs Temp 36.5 C 04/14/18 23:12 Pulse 64 04/14/18 23:12 Resp 20 04/14/18 23:12 BP 150/69 H 04/14/18 23:12 Pulse Ox 96 04/14/18 23:12
[2018-04-15] MEDS: metroNIDAZOLE 500 MG/100 ML BAG IV SCH ×3 (05:35→21:46)
[2018-04-15 06:00] LABS: Appearance Urine Turbid (Clear); Bilirubin Urine Negative (Negative); Color Urine Red; Glucose Urine UA Negative (Negative); Ketones Urine Negative (Negative); Leukocyte Esterase Urine 1+ (Negative); Nitrite Urine Negative (Negative); Protein Urine 2+ (Negative); Urobilinogen Urine Negative (Negative)
[2018-04-15 06:05] LABS: Bacteria Urine Negative (Negative); RBC Urine >30 /hpf (0-4); WBC Urine >30 /hpf (0-5)
[2018-04-15 07:33] LABS: Hematocrit (blood only) 34.8 % (42-52); Hemoglobin 11.6 g/dL (14.0-18.0); Mean Corpuscular Hgb Conc 33.3 g/dL (32-36); Mean Corpuscular Volume 98.6 fL (80-100); Mean Platelet Volume 11.3 fL (7.4-10.4); Platelet Count 163 K/uL (130-400); RDW Coefficient of Variation 14.5 % (11.5-14.5); RDW Standard Deviation 51.3 fL (36.4-46.3); Red Blood Count 3.53 M/uL (4.7-6.1); White Blood Count 7.55 K/uL (4.8-10.8)
[2018-04-15 08:22] LABS: BUN Creatinine Ratio 7.1 (10-20); Est GFR (African American) 18.3; Est GFR (Non-African American) 15.8; Potassium 3.7 mmol/L (3.5-5.1)
[2018-04-15] MEDS: RASPBERRY SYRUP 5 ML UDP PO SCH ×4 (09:11→21:42)
[2018-04-15] MEDS: VANCOMYCIN HCL 125 MG/2.5ML SOLN PO SCH ×4 (09:11→21:45)
[2018-04-15] MEDS: CALCIUM POLYCARBOPHIL 1 TAB PO SCH (09:12)
[2018-04-15] MEDS: VANCOMYCIN HCL 500 MG/100 ML ENEMA PR SCH ×3 (09:12→16:42)
[2018-04-15] MEDS: CETIRIZINE HCL 10 MG TABLET PO SCH (09:12)
[2018-04-15] MEDS: POTASSIUM CHLORIDE 10 MEQ TABCR PO SCH (09:12)
[2018-04-15] MEDS: INSULIN ASPART 100 UNITS/ML 3 ML PEN SC SCH ×4 (09:13→21:39)
[2018-04-15] MEDS: LEVOTHYROXINE SODIUM 25 MCG in SYRINGE 0 ML IV SCH (10:32)
[2018-04-15 13:04] LABS: Hemoglobin 11.5 g/dL (14.0-18.0)
--- NOTE | 2018-04-15 16:22 | Progress Note ---
DATE: 04/15/2018 NEPHROLOGY NOTE SUBJECTIVE: Overnight, his oral intake is almost nonexistent. He is very weak and sleepy and groggy. Still has some diarrhea. Urine output is slowly picking up and renal labs are very slowly getting better, but the sodium is still going up. OBJECTIVE: HEENT: Mucous membrane is dry. NECK: Supple. No jugular venous distention. GENERAL: He is very sleepy and groggy and only had barely opened eyes on command for me. VITAL SIGNS: Blood pressure 151/60, 99% on room air. CHEST: Bilaterally decreased breath sounds, poor inspiratory effort. CARDIOVASCULAR: S1 and S2, regular. ABDOMEN: Soft, nontender. EXTREMITIES: Show no edema. LABORATORY TESTS: Reviewed. Blood work from this morning shows hemoglobin of 11.5. Sodium is continuing to rise and it is up to 151 now, chloride is 120, BUN 24, creatinine 3.34, calcium 8.0. ASSESSMENT AND PLAN: An 87-year-old male who has acute renal failure in the setting of Clostridium difficile infection. 1. Acute renal failure. Creatinine is improving slowly with increasing urine output that is encouraging. I would continue with IV fluid. 2. Hypernatremia. Sodium has gone up from 146 to 151 today. He is not eating anything at all. At this point I would like to change the fluid to D5 water with 20 of potassium and run at 150 mL per hour. He definitely has significant free water deficit and has ongoing deficit also with nonexistent oral intake as well as ongoing diarrhea. Continue to do laboratories on a daily basis at least.
--- NOTE | 2018-04-15 17:26 | Hospitalist Progress Note ---
Date of Service April 15, 2018 Assessment & Plan (1) Sepsis: Meet sepsis criteria with fever 39.1, tachycardia heart rate greater than 100, leukocytosis 15.3, lactic acidosis 3.25 Mostly related to C-diff CXR showed subtle right upper lung zone airspace opacities, likely representing a minimal pneumonitis. CT abd/pelvis showed mild sigmoid diverticulitis Received bread spectrum abx with IV zosyn and Vanco and IVF IV Vanco and Zosyn discontinued Blood cx no growth stool for Cdiff positive ID on board recommeded to continue metronidazole and changed vancomycin oral to fidaxomycin due to increase chance of recurrent. Refused to take any oral med due to AMS Continue monitor closely daughter has been trying for him to take the Vanco susp since with his drink Will change to Fidaxomycin once able to take tab (2) C. difficile diarrhea: Continue to have recurrent diarrhea Stool for Cdiff positive On Iv metronidazole Refused to take oral Vanco due to AMS Vancomycin was changed to fidaxomycin by ID due to increase chance of recurrent infection Oral fidaxomycin was change to Vanco enema since pt refused to take any oral med Fidaxomycin changed to vanco susp to add it to his drink so that he will be easy for him to take Diarrhea has been improves as per nurse Will change to Fidaxomycin once able to take tab Will d/c vanco enema Continue Vanco susp since it will be easy to give to patient (3) Acute renal failure superimposed on stage 3 chronic kidney disease: Mostly related to dehydration from diarrhea and poor oral intake Creatinine on admission 1.7, baseline cr 1.2-1.4 Creatinine trending down to 3.3 today Nephrology on board case discussed with nephrology recommneded to change IVF to 1/2NS @ 150cc/hr Avoid nephrotoxic agents Monitor BMP (4) Altered mental status: Metabolic encephalopathy due to sepsis/cidf/DAVION Advanced dementia Changed oral med to IV if possible Continue Ativan 0.25mg TID (5) DM (diabetes mellitus): A1C 03/26/18 was 6.2 Monitor BS (6) Hypothyroidism: Continue IV levothyroxine Will change to oral once able to take oral med (7) Hypokalemia: Mostly due to diarrhea K 3.7 this morning Continue monitor BMP (8) History of cholangitis: S/P ERCP and stent placement in the last admission Case discussed with GI Stent function well ERCP in 4-8 weeks to remove stent (9) Cholelithiasis: No signs of acute cholecystitis, cholangitis, or choledocholithiasis Due for biliary stent removal in 4 weeks Will Plan for outpatient gallbladder removal as per surgery (10) Hypernatremia: Na 151 today Will change IVF to 1/2 NS @ 150ml Monitor BMP (11) Hematuria: Due to trauma after pulling his taylor Hgb stable at 9.8 Once urine gets cleared, will remove taylor Monitor CBC (12) DVT prophylaxis: Hold Heparin SQ due to hematuria CODE STATUS DNR Disposition Will transfer to medical Subjective Pt was seen and examined Lying in bed with daughter at bedside Diarrhea improves as per staff Daughter was able to make him take the susp vanco Denies any symptoms Physical Exam 2 Vital Signs (Past 24 Hours): Last Vital Signs Temp 37.0 C 04/15/18 15:59 Pulse 68 04/15/18 15:59 Resp 20 04/15/18 15:59 BP 145/68 H 04/15/18 15:59 Pulse Ox 94 04/15/18 15:59 Physical Exam: General- No acute distress Head- atraumatic Eyes- Legally blind ENT- oropharynx clear Neck- supple, no JVD Lungs- clear to auscultation Heart- regular rhythm; no murmur Abdomen- +BS, Non tender Extremities- no calf tenderness Neuro- moves all 4 extremities, AMS Skin- warm & dry _ (1) DM (diabetes mellitus) Chronic kidney disease stage: stage 3 (moderate) Diabetes mellitus complication detail: with chronic kidney disease Diabetes mellitus complication status: with kidney complications Diabetes mellitus long-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 Diabetes mellitus macular edema: Diabetes mellitus type: type 2 Diabetic retinopathy severity: Laterality: Proliferative retinopathy type: Qualified Code(s): E11.22 - Type 2 diabetes mellitus with diabetic chronic kidney disease; N18.3 - Chronic kidney disease, stage 3 (moderate) (2) Hypothyroidism Hypothyroidism type: unspecified Qualified Code(s): E03.9 - Hypothyroidism, unspecified (3) Acute renal failure superimposed on stage 3 chronic kidney disease Acute renal failure type: unspecified Qualified Code(s): N17.9 - Acute kidney failure, unspecified; N18.3 - Chronic kidney disease, stage 3 (moderate) (4) Sepsis Sepsis type: sepsis due to unspecified organism Qualified Code(s): A41.9 - Sepsis, unspecified organism (5) Altered mental status Altered mental status type: unspecified Coma depth: Coma timing: Qualified Code(s): R41.82 - Altered mental status, unspecified
[2018-04-15] MEDS: POTASSIUM CHLORIDE 10 MEQ in SODIUM CHLORIDE 0.45 % 1,000 ML IV SCH (18:35)
[2018-04-15] MEDS: QUETIAPINE FUMARATE 25 MG TABLET PO SCH (21:42)
[2018-04-15] MEDS: LORazepam 0.25 MG/0.5 ML VIAL IV SCH (21:46)
[2018-04-16 00:35] LABS: BUN Creatinine Ratio 7.4 (10-20); Calcium 7.2 mg/dl (8.5-10.1); Creatinine Clr Calc Pharmacy 14.2 ml/min; Est GFR (African American) 20.3; Est GFR (Non-African American) 17.6; Potassium 3.3 mmol/L (3.5-5.1)
[2018-04-16] MEDS: POTASSIUM CHLORIDE 10 MEQ in SODIUM CHLORIDE 0.45 % 1,000 ML IV SCH ×2 (01:32→08:34)
[2018-04-16] MEDS: metroNIDAZOLE 500 MG/100 ML BAG IV SCH ×3 (05:07→22:16)
[2018-04-16] MEDS: LORazepam 0.25 MG/0.5 ML VIAL IV SCH ×3 (05:23→21:32)
[2018-04-16 08:07] LABS: Hematocrit (blood only) 37.1 % (42-52); Hemoglobin 12.5 g/dL (14.0-18.0); Mean Corpuscular Hgb Conc 33.7 g/dL (32-36); Mean Corpuscular Volume 97.9 fL (80-100); Mean Platelet Volume 10.7 fL (7.4-10.4); Platelet Count 166 K/uL (130-400); RDW Coefficient of Variation 14.5 % (11.5-14.5); Red Blood Count 3.79 M/uL (4.7-6.1); White Blood Count 10.77 K/uL (4.8-10.8)
[2018-04-16] MEDS: POTASSIUM ACETATE 10 MEQ in 0.9 % SODIUM CHLORIDE 100 ML IV SCH ×2 (08:35→10:17)
[2018-04-16] MEDS: INSULIN ASPART 100 UNITS/ML 3 ML PEN SC SCH ×4 (08:37→21:30)
[2018-04-16] MEDS: LEVOTHYROXINE SODIUM 25 MCG in SYRINGE 0 ML IV SCH (08:37)
[2018-04-16] MEDS: RASPBERRY SYRUP 5 ML UDP PO SCH ×4 (08:37→21:32)
[2018-04-16] MEDS: VANCOMYCIN HCL 125 MG/2.5ML SOLN PO SCH ×4 (08:38→21:32)
[2018-04-16 08:41] LABS: BUN Creatinine Ratio 7.1 (10-20); Calcium 7.8 mg/dl (8.5-10.1); Creatinine Clr Calc Pharmacy 14.5 ml/min; Est GFR (African American) 20.8; Potassium 3.4 mmol/L (3.5-5.1)
--- NOTE | 2018-04-16 09:33 | Nephrology Progress Note ---
Date of Service April 16, 2018 Assessment & Plan (1) Acute renal failure superimposed on stage 3 chronic kidney disease: prior baseline 1.2; was 1.4 at 04/04 hospital d/c 1.7 on presentation on 04/11, up to 2.5 next day, peaked at 4.3 on 04/13, and 3.0 this am Not oliguric; UA shows no infection at admission; CT w/o obstruction or acute renal process -prerenal versus ATN in the setting of C diff diarrhea, recurrent sepsis >>changed IVF to D5W w/ 20 K /L at 150 mL hourly -dr Montano gave 20 ,mEq po K as well -gross hematuria >> suspect taylor trauma; ua w/o evidence of infection Subjective lying flat on RA, no c/o (limited speech) taylor still w/ blood Physical Exam 2 Vital Signs (Past 24 Hours): Last Vital Signs Temp 36.8 C 04/15/18 20:13 Pulse 62 04/16/18 07:30 Resp 16 04/16/18 07:30 BP 152/76 H 04/16/18 08:55 Pulse Ox 95 04/16/18 07:30 Constitutional: well developed, + frail appearing and comfortable lying flat on RA Eyes: vis impaired; tracks ENMT: Mouth: + dry oral mucous membranes [place] Neck: no nuchal rigidity Respiratory: diminished BS but clear Cardiovascular: Rate/Rhythm: regular rate and regular rhythm Extremities: no edema Gastrointestinal (Abdomen): Inspection/Auscultation: normal bowel sounds Percussion/Palpation: + abdomen tender, + guarding and abdomen soft Musculoskeletal: damon Neurologic: speaks full and set sentence or 1-2 words Genitourinary: taylor w/ maroon blood/urine Results & Data Laboratory Results Abnormal lab results 04/15/18 04/15/18 04/15/18 Range/Units 12:00 12:35 16:21 RBC (4.7-6.1) M/uL Hgb 11.5 L (14.0-18.0) g/dL Hct 34.0 L (42-52) % RDW Std Deviation (36.4-46.3) fL MPV (7.4-10.4) fL Sodium (136-145) mmol/L Potassium (3.5-5.1) mmol/L Chloride (98-107) mmol/L BUN (7-18) mg/dl Creatinine (0.6-1.4) mg/dl BUN/Creatinine Ratio (10-20) Glucose (70-99) mg/dl POC Glucose 203 H 151 H (70-99) Calcium (8.5-10.1) mg/dl 04/15/18 04/16/18 04/16/18 Range/Units 20:59 00:01 07:58 RBC (4.7-6.1) M/uL Hgb (14.0-18.0) g/dL Hct (42-52) % RDW Std Deviation (36.4-46.3) fL MPV (7.4-10.4) fL Sodium 150 H 150 H (136-145) mmol/L Potassium 3.3 L 3.4 L (3.5-5.1) mmol/L Chloride 118 H 118 H (98-107) mmol/L BUN 23 H 21 H (7-18) mg/dl Creatinine 3.06 H 3.00 H (0.6-1.4) mg/dl BUN/Creatinine Ratio 7.4 L 7.1 L (10-20) Glucose 131 H (70-99) mg/dl POC Glucose 171 H (70-99) Calcium 7.2 L 7.8 L (8.5-10.1) mg/dl 04/16/18 Range/Units 07:58 RBC 3.79 L (4.7-6.1) M/uL Hgb 12.5 L (14.0-18.0) g/dL Hct 37.1 L (42-52) % RDW Std Deviation 52.0 H (36.4-46.3) fL MPV 10.7 H (7.4-10.4) fL Sodium (136-145) mmol/L Potassium (3.5-5.1) mmol/L Chloride (98-107) mmol/L BUN (7-18) mg/dl Creatinine (0.6-1.4) mg/dl BUN/Creatinine Ratio (10-20) Glucose (70-99) mg/dl POC Glucose (70-99) Calcium (8.5-10.1) mg/dl _ (1) Acute renal failure superimposed on stage 3 chronic kidney disease Acute renal failure type: unspecified Qualified Code(s): N17.9 - Acute kidney failure, unspecified; N18.3 - Chronic kidney disease, stage 3 (moderate)
[2018-04-16] MEDS ORDERED: MICONAZOLE NITRATE POWDER 43 GM EXT PRN (09:54)
--- NOTE | 2018-04-16 10:07 | Hospitalist Progress Note ---
Date of Service April 16, 2018 Assessment & Plan (1) Sepsis: Meet sepsis criteria with fever 39.1, tachycardia heart rate greater than 100, leukocytosis 15.3, lactic acidosis 3.25 Mostly related to C-diff CXR showed subtle right upper lung zone airspace opacities, likely representing a minimal pneumonitis. CT abd/pelvis showed mild sigmoid diverticulitis Received bread spectrum abx with IV zosyn and Vanco and IVF IV Vanco and Zosyn discontinued Blood cx no growth stool for Cdiff positive ID on board recommeded to continue metronidazole and changed vancomycin oral to fidaxomycin due to increase chance of recurrent. Refused to take any oral med due to AMS Continue monitor closely daughter has been trying for him to take the Vanco susp since with his drink Will change to Fidaxomycin once able to take tab Clinically stable (2) C. difficile diarrhea: Continue to have recurrent diarrhea Stool for Cdiff positive On Iv metronidazole Refused to take oral Vanco due to AMS Vancomycin was changed to fidaxomycin by ID due to increase chance of recurrent infection Oral fidaxomycin was change to Vanco enema since pt refused to take any oral med Fidaxomycin changed to vanco susp to add it to his drink so that he will be easy for him to take Diarrhea has been improves as per nurse Will change to Fidaxomycin once able to take tab Will d/c vanco enema Continue Vanco susp since it will be easy to give to patient 2/4 Diarrhea improves today He took Vanco oral susp today Will change vanco to Fidaxomycin po as per ID Continue IV flagyl for now Will consider to change his med to oral (3) Acute renal failure superimposed on stage 3 chronic kidney disease: Mostly related to dehydration from diarrhea and poor oral intake Creatinine on admission 1.7, baseline cr 1.2-1.4 Creatinine trending down to 3 today Nephrology on board case discussed with nephrology today recommended to change IVF to D5W +KCL 20meq @ 150ml/hr Avoid nephrotoxic agents Monitor BMP (4) Altered mental status: Metabolic encephalopathy due to sepsis/cidf/DAVION Advanced dementia Changed oral med to IV if possible Will change Ativan 0.25mg TID to PO (5) DM (diabetes mellitus): A1C 03/26/18 was 6.2 Monitor BS closely since pt on D5W (6) Hypothyroidism: Continue IV levothyroxine Will change to oral once able to take oral med (7) Hypokalemia: Mostly due to diarrhea K 3.4 this morning K replaced Continue monitor BMP (8) History of cholangitis: S/P ERCP and stent placement in the last admission Case discussed with GI Stent function well ERCP in 4-8 weeks to remove stent (9) Cholelithiasis: No signs of acute cholecystitis, cholangitis, or choledocholithiasis Due for biliary stent removal in 4 weeks Will Plan for outpatient gallbladder removal as per surgery (10) Hypernatremia: Na 150 today Nephrology recommended to change IVF to D5W+KCL 20meq @ 150ml Monitor BMP (11) Hematuria: Due to trauma after pulling his taylor Hgb improved to 12.5 Once urine gets cleared, will remove taylor Monitor CBC (12) DVT prophylaxis: Hold Heparin SQ due to hematuria CODE STATUS DNR Disposition Will discharge once medically stable Subjective Pt was seen and examined Lying in bed with no distress Pt is more alert today he was able to say leave me alone when I tried to auscultate his heart and lung Nurse said that he took his vanco sup this morning Has not had a BM this morning, diarrhea improves Physical Exam 2 Vital Signs (Past 24 Hours): Last Vital Signs Temp 36.8 C 04/15/18 20:13 Pulse 62 04/16/18 07:30 Resp 16 04/16/18 07:30 BP 152/76 H 04/16/18 08:55 Pulse Ox 95 04/16/18 07:30 Physical Exam: eneral- No acute distress Head- atraumatic Eyes- Legally blind ENT- oropharynx clear Neck- supple, no JVD Lungs- clear to auscultation Heart- regular rhythm; no murmur Abdomen- +BS, Non tender Extremities- no calf tenderness Neuro- Dementia, moves all 4 extremities, Skin- warm & dry _ (1) DM (diabetes mellitus) Chronic kidney disease stage: stage 3 (moderate) Diabetes mellitus complication detail: with chronic kidney disease Diabetes mellitus complication status: with kidney complications Diabetes mellitus long-term insulin use: without long-term use Diabetes mellitus macular edema: Diabetes mellitus type: type 2 Diabetic retinopathy severity: Laterality: Proliferative retinopathy type: Qualified Code(s): E11.22 - Type 2 diabetes mellitus with diabetic chronic kidney disease; N18.3 - Chronic kidney disease, stage 3 (moderate) (2) Hypothyroidism Hypothyroidism type: unspecified Qualified Code(s): E03.9 - Hypothyroidism, unspecified (3) Acute renal failure superimposed on stage 3 chronic kidney disease Acute renal failure type: unspecified Qualified Code(s): N17.9 - Acute kidney failure, unspecified; N18.3 - Chronic kidney disease, stage 3 (moderate) (4) Sepsis Sepsis type: sepsis due to unspecified organism Qualified Code(s): A41.9 - Sepsis, unspecified organism (5) Altered mental status Altered mental status type: unspecified Coma depth: Coma timing: Qualified Code(s): R41.82 - Altered mental status, unspecified
[2018-04-16] MEDS: POTASSIUM CHLORIDE 20 MEQ in DEXTROSE 5% 1,000 ML IV SCH ×2 (10:17→17:31)
[2018-04-16 19:28] LABS: BUN Creatinine Ratio 5.8 (10-20); Calcium 7.4 mg/dl (8.5-10.1); Creatinine Clr Calc Pharmacy 15.1 ml/min; Est GFR (African American) 21.9; Est GFR (Non-African American) 18.9; Potassium 3.5 mmol/L (3.5-5.1)
--- NOTE | 2018-04-16 20:33 | Infectious Disease Progress Nt ---
Date of Service April 16, 2018 Assessment & Plan (1) C. difficile diarrhea: Patient with C. difficile colitis, to try again to treat patient with fidaxomicin. Will continue to follow. Subjective Patient seen in follow-up for C. difficile colitis. Still unable to provide any history. Now taking some oral medications, fidaxomicin restarted. Review of Systems Unobtainable due to cognitive status Physical Exam 2 Vital Signs (Past 24 Hours): Last Vital Signs Temp 36.9 C 04/16/18 15:05 Pulse 67 04/16/18 15:05 Resp 20 04/16/18 15:05 BP 156/72 H 04/16/18 15:05 Pulse Ox 95 04/16/18 15:05 Constitutional: WD/WN, vitals as above comfortable; no acute distress Eyes: PERRL, conjunctivae normal, anicteric sclerae ENMT: external ear and nose normal, oropharynx normal Neck: trachea midline, no thyromegaly neck nontender Respiratory: normal respiratory effort, lungs clear to auscultation normal percussion; does not use accessory muscles Cardiovascular: Rate/Rhythm: regular rate and regular rhythm Heart Sounds: normal S1 and normal S2; no gallop, no murmur and no cardiac rub Vessels: normal peripheral pulses; no JVD Gastrointestinal (Abdomen): Inspection/Auscultation: abdomen normal to inspection Percussion/Palpation: + abdomen tender (Slight lower quadrant tenderness) and abdomen soft; no hepatosplenomegaly Musculoskeletal: no cyanosis or clubbing, extremities motor strength 5/5 Spine: thoracic spine normal to inspection and lumbar spine normal to inspection ; no cervical spinal tenderness Skin: no rashes, warm and dry normal turgor; no lesions Neurologic: patellar DTR's 2+ bilat, sensation intact no focal motor deficits Psychiatric: Orientation: alert; + not oriented x 3 Lymphatic: no cervical or axillary lymphadenopathy no inguinal lymphadenopathy Results & Data Laboratory Results Short CBC 04/16/18 Range/Units 07:58 WBC 10.77 (4.8-10.8) K/uL Hgb 12.5 L (14.0-18.0) g/dL Hct 37.1 L (42-52) % Plt Count 166 (130-400) K/uL BMP 04/16/18 04/16/18 04/16/18 00:01 07:58 18:58 Sodium 150 H 150 H 144 Potassium 3.3 L 3.4 L 3.5 Chloride 118 H 118 H 115 H Carbon Dioxide 23 24 24 BUN 23 H 21 H 17 Creatinine 3.06 H 3.00 H 2.88 H Glucose 131 H 97 189 H Calcium 7.2 L 7.8 L 7.4 L Diagnostic Findings Microbiology 04/15/18 Unknown Urine,Straight Cath Urine Culture - Preliminary Trisha albicans 04/11/18 14:35 Stool Escherichia coli Shiga Toxins - Final 04/11/18 14:35 Stool Stool Culture - Final No Salmonella isolated, No Shigella isolated, No Campylobacter jejuni isolated. 04/11/18 11:29 Blood Blood Culture - Preliminary No growth to date. 04/11/18 11:00 Blood Blood Culture - Preliminary No growth to date.
[2018-04-16] MEDS: QUETIAPINE FUMARATE 25 MG TABLET PO SCH (21:32)
[2018-04-17] MEDS: POTASSIUM CHLORIDE 20 MEQ in DEXTROSE 5% 1,000 ML IV SCH ×2 (01:10→09:05)
[2018-04-17] MEDS: LORazepam 0.25 MG/0.5 ML VIAL IV SCH ×2 (05:56→12:33)
[2018-04-17] MEDS: metroNIDAZOLE 500 MG/100 ML BAG IV SCH ×2 (06:11→13:18)
[2018-04-17] MEDS: VANCOMYCIN HCL 125 MG/2.5ML SOLN PO SCH ×3 (08:27→16:53)
[2018-04-17] MEDS: RASPBERRY SYRUP 5 ML UDP PO SCH ×3 (08:28→16:53)
[2018-04-17 08:45] LABS: BUN Creatinine Ratio 5.5 (10-20); Calcium 7.7 mg/dl (8.5-10.1); Est GFR (African American) 23.4; Est GFR (Non-African American) 20.1; Potassium 3.8 mmol/L (3.5-5.1)
[2018-04-17] MEDS: INSULIN ASPART 100 UNITS/ML 3 ML PEN SC SCH ×4 (08:46→22:06)
[2018-04-17] MEDS: LEVOTHYROXINE SODIUM 25 MCG in SYRINGE 0 ML IV SCH (08:46)
--- NOTE | 2018-04-17 09:00 | Nephrology Progress Note ---
Date of Service April 17, 2018 Assessment & Plan (1) Acute renal failure superimposed on stage 3 chronic kidney disease: prior baseline 1.2; was 1.4 at 04/04 hospital d/c 1.7 on presentation on 04/11, up to 2.5 next day, peaked at 4.3 on 04/13, and on down trend to 2.7 this am Not oliguric; UA shows no infection at admission; CT w/o obstruction or acute renal process -prerenal versus ATN in the setting of C diff diarrhea, recurrent sepsis >>continue IVF as he takes minimal po, even w/ encouragement (2) Disorder of fluid or electrolyte: current issues include hypernatremia, hyperchloremia; volume depletion in setting of diarrhea, diminished po intake -change D5W to normosol at 150 mL/hr as respiratory status tolerates -daily bmp Present on Admission?: Yes (3) Hematuria: suspect taylor trauma; no uti on ua after this developed and w/ improving creatinine would not reimage kidneys; if persistent, consider urology eval for completeness Present on Admission?: No Subjective no bm so far today. remains on RA. not interactive except to ask to be left alone; nursing had same response from pt; pt takes minimal po - not even pills Physical Exam 2 Vital Signs (Past 24 Hours): Last Vital Signs Temp 36.6 C 04/17/18 01:00 Pulse 64 04/17/18 01:00 Resp 18 04/17/18 01:00 BP 145/70 H 04/17/18 01:00 Pulse Ox 93 04/17/18 01:00 Constitutional: well developed, + frail appearing and comfortable lying in bed near flat on ra resting Eyes: opens briefly / turn shead more than track (vis impaired) ENMT: Mouth: + dry oral mucous membranes Neck: no nuchal rigidity Respiratory: diminished air entry but clear Cardiovascular: Rate/Rhythm: regular rate and regular rhythm Extremities: no edema Gastrointestinal (Abdomen): Inspection/Auscultation: normal bowel sounds Percussion/Palpation: + abdomen tender (less tender today) and abdomen soft Musculoskeletal: damon Skin: no rash Psychiatric: appears at baseline Genitourinary: taylor w/ dark red urine Results & Data Laboratory Results Abnormal lab results 04/16/18 04/16/18 04/16/18 Range/Units 16:56 18:58 20:32 Chloride 115 H (98-107) mmol/L Creatinine 2.88 H (0.6-1.4) mg/dl BUN/Creatinine Ratio 5.8 L (10-20) Glucose 189 H (70-99) mg/dl POC Glucose 342 H 197 H (70-99) Calcium 7.4 L (8.5-10.1) mg/dl 04/17/18 04/17/18 Range/Units 07:57 08:03 Chloride 113 H (98-107) mmol/L Creatinine 2.73 H (0.6-1.4) mg/dl BUN/Creatinine Ratio 5.5 L (10-20) Glucose 137 H (70-99) mg/dl POC Glucose 135 H (70-99) Calcium 7.7 L (8.5-10.1) mg/dl _ (1) Acute renal failure superimposed on stage 3 chronic kidney disease Acute renal failure type: unspecified Qualified Code(s): N17.9 - Acute kidney failure, unspecified; N18.3 - Chronic kidney disease, stage 3 (moderate)
[2018-04-17] MEDS: NORMOSOL-R 1,000 ML IV SCH ×2 (11:20→16:54)
--- NOTE | 2018-04-17 12:51 | Hospitalist Progress Note ---
Date of Service April 17, 2018 Assessment & Plan (1) Sepsis: Meet sepsis criteria with fever 39.1, tachycardia heart rate greater than 100, leukocytosis 15.3, lactic acidosis 3.25 Mostly related to C-diff CXR showed subtle right upper lung zone airspace opacities, likely representing a minimal pneumonitis. CT abd/pelvis showed mild sigmoid diverticulitis Received bread spectrum abx with IV zosyn and Vanco and IVF IV Vanco and Zosyn discontinued Blood cx no growth stool for Cdiff positive ID on board recommeded to continue metronidazole and changed vancomycin oral to fidaxomycin due to increase chance of recurrent. Refused to take any oral med due to AMS Continue monitor closely daughter has been trying for him to take the Vanco susp since with his drink Will change to Fidaxomycin once able to take tab Clinically stable (2) C. difficile diarrhea: Continue to have recurrent diarrhea Stool for Cdiff positive On Iv metronidazole Refused to take oral Vanco due to AMS Vancomycin was changed to fidaxomycin by ID due to increase chance of recurrent infection Oral fidaxomycin was change to Vanco enema since pt refused to take any oral med Fidaxomycin changed to vanco susp to add it to his drink so that he will be easy for him to take Diarrhea has been improves as per nurse Will change to Fidaxomycin once able to take tab Will d/c vanco enema Continue Vanco susp since it will be easy to give to patient 2/5 Diarrhea improves today Will change vanco to Fidaxomycin po as per ID Continue IV flagyl for now Continue IVF (3) Acute renal failure superimposed on stage 3 chronic kidney disease: Mostly related to dehydration from diarrhea and poor oral intake Creatinine on admission 1.7, baseline cr 1.2-1.4 Creatinine trending down to 2.7 today Nephrology on board case discussed with nephrology D5W changed to normosol @ 150ml/hr Avoid nephrotoxic agents Monitor BMP (4) Altered mental status: Metabolic encephalopathy due to sepsis/cidf/DAVION Advanced dementia Changed oral med to IV if possible Will change Ativan 0.25mg TID to PO once able to take oral (5) DM (diabetes mellitus): A1C 03/26/18 was 6.2 Monitor BS closely since pt on D5W (6) Hypothyroidism: Continue IV levothyroxine Will change to oral once able to take oral med (7) Hypokalemia: Mostly due to diarrhea K 3.8 this morning Stable Continue monitor BMP (8) History of cholangitis: S/P ERCP and stent placement in the last admission Case discussed with GI Stent function well ERCP in 4-8 weeks to remove stent (9) Cholelithiasis: No signs of acute cholecystitis, cholangitis, or choledocholithiasis Due for biliary stent removal in 4 weeks Will Plan for outpatient gallbladder removal as per surgery (10) Hypernatremia: Na dropped to 143 Nephrologyon board IVF changed to normosol Monitor BMP (11) Hematuria: Due to trauma after pulling his taylor Hgb stable Once urine gets cleared, will remove taylor Monitor CBC (12) DVT prophylaxis: Hold Heparin SQ due to hematuria CODE STATUS DNR Disposition Will discharge once medically stable Subjective Pt was seen and examined Lying in bed with no distress Nurse had a hard time to give him his med today Only had 1 episode of diarrhea today Physical Exam 2 Vital Signs (Past 24 Hours): Last Vital Signs Temp 36.6 C 04/17/18 01:00 Pulse 64 04/17/18 01:00 Resp 18 04/17/18 01:00 BP 145/70 H 04/17/18 01:00 Pulse Ox 93 04/17/18 01:00 Physical Exam: General- No acute distress Head- atraumatic Eyes- Legally blind ENT- oropharynx clear Neck- supple, no JVD Lungs- clear to auscultation Heart- regular rhythm; no murmur Abdomen- +BS, Non tender Extremities- no calf tenderness Neuro- Dementia, moves all 4 extremities, Skin- warm & dry _ (1) Sepsis Sepsis type: sepsis due to unspecified organism Qualified Code(s): A41.9 - Sepsis, unspecified organism (2) Acute renal failure superimposed on stage 3 chronic kidney disease Acute renal failure type: unspecified Qualified Code(s): N17.9 - Acute kidney failure, unspecified; N18.3 - Chronic kidney disease, stage 3 (moderate) (3) Altered mental status Altered mental status type: unspecified Coma depth: Coma timing: Qualified Code(s): R41.82 - Altered mental status, unspecified (4) DM (diabetes mellitus) Diabetes mellitus type: type 2 Diabetes mellitus terminal worker insulin use: without terminal worker use Diabetes mellitus complication status: with kidney complications Diabetes mellitus complication detail: with chronic kidney disease Diabetic retinopathy severity: Proliferative retinopathy type: Diabetes mellitus macular edema: Laterality: Chronic kidney disease stage: stage 3 (moderate) Qualified Code(s): E11.22 - Type 2 diabetes mellitus with diabetic chronic kidney disease; N18.3 - Chronic kidney disease, stage 3 ( moderate) (5) Hypothyroidism Hypothyroidism type: unspecified Qualified Code(s): E03.9 - Hypothyroidism, unspecified
[2018-04-17] MEDS: FIDAXOMICIN 200 MG TAB PO SCH (19:44)
--- NOTE | 2018-04-17 21:06 | Infectious Disease Progress Nt ---
Date of Service April 17, 2018 Assessment & Plan (1) C. difficile diarrhea: Patient with C. difficile colitis, to try again to treat patient with fidaxomicin. Will continue to follow. Subjective Patient seen in follow-up for C. difficile colitis. Still unable to provide any history. Now taking some oral medications, fidaxomicin restarted. Review of Systems Unobtainable due to cognitive status Physical Exam 2 Vital Signs (Past 24 Hours): Last Vital Signs Temp 36.4 C L 04/17/18 15:12 Pulse 68 04/17/18 15:12 Resp 19 04/17/18 15:12 BP 175/71 H 04/17/18 15:12 Pulse Ox 94 04/17/18 15:12 Constitutional: WD/WN, vitals as above comfortable; no acute distress Eyes: PERRL, conjunctivae normal, anicteric sclerae ENMT: external ear and nose normal, oropharynx normal Neck: trachea midline, no thyromegaly neck nontender Respiratory: normal respiratory effort, lungs clear to auscultation normal percussion; does not use accessory muscles Cardiovascular: Rate/Rhythm: regular rate and regular rhythm Heart Sounds: normal S1 and normal S2; no gallop, no murmur and no cardiac rub Vessels: normal peripheral pulses; no JVD Gastrointestinal (Abdomen): Inspection/Auscultation: abdomen normal to inspection Percussion/Palpation: + abdomen tender (Slight lower quadrant tenderness) and abdomen soft; no hepatosplenomegaly Musculoskeletal: no cyanosis or clubbing, extremities motor strength 5/5 Spine: thoracic spine normal to inspection and lumbar spine normal to inspection ; no cervical spinal tenderness Skin: no rashes, warm and dry normal turgor; no lesions Neurologic: patellar DTR's 2+ bilat, sensation intact no focal motor deficits Psychiatric: Orientation: alert; + not oriented x 3 Lymphatic: no cervical or axillary lymphadenopathy no inguinal lymphadenopathy Results & Data Laboratory Results BMP 04/17/18 08:03 Sodium 143 Potassium 3.8 Chloride 113 H Carbon Dioxide 27 BUN 15 Creatinine 2.73 H Glucose 137 H Calcium 7.7 L Diagnostic Findings Microbiology 04/15/18 Unknown Urine,Straight Cath Urine Culture - Final Trisha albicans 04/11/18 11:29 Blood Blood Culture - Final No growth 04/11/18 11:00 Blood Blood Culture - Final No growth 04/11/18 14:35 Stool Escherichia coli Shiga Toxins - Final 04/11/18 14:35 Stool Stool Culture - Final No Salmonella isolated, No Shigella isolated, No Campylobacter jejuni isolated.
[2018-04-17] MEDS: QUETIAPINE FUMARATE 25 MG TABLET PO SCH (22:08)
[2018-04-18] MEDS: metroNIDAZOLE 500 MG/100 ML BAG IV SCH ×3 (02:11→18:43)
[2018-04-18] MEDS: LORazepam 0.25 MG/0.5 ML VIAL IV SCH (04:31)
[2018-04-18] MEDS: NORMOSOL-R 1,000 ML IV SCH ×2 (04:31→12:32)
--- NOTE | 2018-04-18 08:10 | Nephrology Progress Note ---
Date of Service April 18, 2018 Assessment & Plan (1) Acute renal failure superimposed on stage 3 chronic kidney disease: prior baseline 1.2; was 1.4 at 04/04 hospital d/c 1.7 on presentation on 04/11, up to 2.5 next day, peaked at 4.3 on 04/13, and on down trend to 2.7 yesterday am ; today's labs pending (creatinine 2.3) Not oliguric; UA shows no infection at admission; CT w/o obstruction or acute renal process -prerenal versus ATN in the setting of C diff diarrhea, recurrent sepsis >>continue IVF pending today's labs though may need to scale back if htn sustained -encourage po (2) Disorder of fluid or electrolyte: current issues include hypokalemia, hyperchloremia; volume depletion in setting of diarrhea, diminished po intake -started by hospitalist on D5 03/14 NS >> will add K to it -daily bmp -- today's labs pending (3) Hematuria: suspect taylor trauma; no uti on ua after this developed and w/ improving creatinine would not reimage kidneys; if persistent, consider urology eval for completeness Subjective seen on rounds this am at 10. cont to eat very little. ongoing gross hematuria. minimally interactive -- answers " ok " today to multiple queries Physical Exam 2 Vital Signs (Past 24 Hours): Last Vital Signs Temp 36.4 C L 04/17/18 15:12 Pulse 68 04/17/18 15:12 Resp 19 04/17/18 15:12 BP 175/71 H 04/17/18 15:12 Pulse Ox 94 04/17/18 15:12 Constitutional: well developed, + frail appearing and comfortable lying flat on ra ENMT: Mouth: + dry oral mucous membranes Neck: no nuchal rigidity Respiratory: very diminished lungs but clear Cardiovascular: Rate/Rhythm: regular rate and regular rhythm Extremities: no edema Gastrointestinal (Abdomen): Inspection/Auscultation: normal bowel sounds Percussion/Palpation: + abdomen tender (less tender today) and abdomen soft Musculoskeletal: damon; limited speech Skin: no rashes, warm and dry Results & Data Laboratory Results Abnormal lab results 04/17/18 04/18/18 04/18/18 Range/Units 19:58 08:41 08:41 RBC 3.56 L (4.7-6.1) M/uL Hgb 12.0 L (14.0-18.0) g/dL Hct 34.6 L (42-52) % RDW Std Deviation 50.4 H (36.4-46.3) fL MPV 10.7 H (7.4-10.4) fL Potassium 3.4 L (3.5-5.1) mmol/L Chloride 114 H (98-107) mmol/L Creatinine 2.37 H D (0.6-1.4) mg/dl BUN/Creatinine Ratio 6.0 L (10-20) POC Glucose 134 H (70-99) Calcium 7.8 L (8.5-10.1) mg/dl _ (1) Acute renal failure superimposed on stage 3 chronic kidney disease Acute renal failure type: unspecified Qualified Code(s): N17.9 - Acute kidney failure, unspecified; N18.3 - Chronic kidney disease, stage 3 (moderate)
[2018-04-18] MEDS: INSULIN ASPART 100 UNITS/ML 3 ML PEN SC SCH ×4 (08:14→21:41)
[2018-04-18] MEDS: FIDAXOMICIN 200 MG TAB PO SCH ×3 (08:19→22:09)
[2018-04-18] MEDS: LEVOTHYROXINE SODIUM 25 MCG in SYRINGE 0 ML IV SCH (08:39)
[2018-04-18 08:59] LABS: Hematocrit (blood only) 34.6 % (42-52); Mean Corpuscular Hgb Conc 34.7 g/dL (32-36); Mean Corpuscular Volume 97.2 fL (80-100); Mean Platelet Volume 10.7 fL (7.4-10.4); Platelet Count 168 K/uL (130-400); RDW Coefficient of Variation 14.1 % (11.5-14.5); RDW Standard Deviation 50.4 fL (36.4-46.3); Red Blood Count 3.56 M/uL (4.7-6.1)
[2018-04-18 09:35] LABS: Calcium 7.8 mg/dl (8.5-10.1); Creatinine Clr Calc Pharmacy 18.4 ml/min; Est GFR (African American) 27.7; Est GFR (Non-African American) 23.9; Potassium 3.4 mmol/L (3.5-5.1)
[2018-04-18] MEDS ORDERED: D5W AND 1/2NSS 1,000 ML IV SCH (16:45)
--- NOTE | 2018-04-18 17:10 | Hospitalist Progress Note ---
Date of Service April 18, 2018 Assessment & Plan (1) Sepsis: Meet sepsis criteria with fever 39.1, tachycardia heart rate greater than 100, leukocytosis 15.3, lactic acidosis 3.25 Mostly related to C-diff CXR showed subtle right upper lung zone airspace opacities, likely representing a minimal pneumonitis. CT abd/pelvis showed mild sigmoid diverticulitis Received bread spectrum abx with IV zosyn and Vanco and IVF IV Vanco and Zosyn discontinued Blood cx no growth stool for Cdiff positive ID on board recommeded to continue metronidazole and changed vancomycin oral to fidaxomycin due to increase chance of recurrent (2) C. difficile diarrhea: Based on reviewing the notes on this admission, management of C.difficile has been difficult and irregular because patient primarily is not taking oral medications that can treat C.difficile. The mainstay has been IV metronidazole which was started since 04/11/18 and contininuing. To date, patient had attempts made with oral vancomycin as tablet or liquid form and then oral Fidaxomycin. But patient has not been able to consistently to oral medications The episodes of diarrhea has been resolving but it is unclear whether patient has a good chance of clearing C.difficile based on IV metronidazole alone (3) Acute renal failure superimposed on stage 3 chronic kidney disease: Acute renal failure superimposed on stage 3 chronic kidney disease: prior baseline 1.2; was 1.4 at 04/04 hospital discharge 1.7 on presentation on 04/11, up to 2.5 next day, peaked at 4.3 on 04/13, and on down trend to 2.7 yesterday am ; today's labs creatinine 2.3 D5W changed to normosol @ 150ml/hr Avoid nephrotoxic agents Monitor BMP (4) Altered mental status: Metabolic encephalopathy due to sepsis/cidf/DAVION advanced dementia had been on oral ativan at home, is on IV prn while inpatient (5) DM (diabetes mellitus): A1C 03/26/18 was 6.2 (6) Hypothyroidism: Continue IV levothyroxine (7) Hypokalemia: Mostly due to diarrhea generally has resolved will supplement with IV potassium as needed (8) History of cholangitis: S/P ERCP and stent placement in the last admission Case discussed with GI Stent function well will plan for outpatient ERCP in 4-8 weeks to remove stent if patient and his daughter agrees (9) Cholelithiasis: No signs of acute cholecystitis, cholangitis, or choledocholithiasis Due for biliary stent removal in 4 weeks Will Plan for outpatient gallbladder removal as per surgery if patient and his daughter agrees (10) Hypernatremia: resolved had been on normosol will switch to D5 1/2 normal saline at 80 cc/hr to provide Nutrition (11) Hematuria: Patient had hematuria on this admission from trauma after he pulled the taylor currently has taylor but no gross bleeding will try to remove taylor as of 04/18/18 and do trial of void (12) DVT prophylaxis: Hold Heparin SQ due to hematuria for now CODE STATUS DNR patient's daughter Mariana at bedside (cell phone [phone] and work ) disposition: will seek palliative care consult and case management to assist in setting up hospice care at home Subjective Patient at bedside is difficult to examine as he is blind, hard of hearing, and keeps trying to push away medical doctor on exam Patient receiving hydration via IV fluids As per nursing staff, patient has minimal oral appetite generally cannot take pills especially the regimen to treat C.difficile Have discussed these problems with patient's daughter Mariana at bedside (cell phone [phone] and work [phone]) and that given inability to take oral medications or feed, that patient may be prone to further deconditioning or immune suppression. Patient's daughter is interested in exploring hospice care Physical Exam 2 Vital Signs (Past 24 Hours): Last Vital Signs Temp 36.4 C L 04/18/18 15:00 Pulse 66 04/18/18 15:00 Resp 18 04/18/18 15:00 BP 156/79 H 04/18/18 15:00 Pulse Ox 94 04/18/18 15:00 Physical Exam: General- No acute distress Head- atraumatic Eyes- Legally blind ENT- oropharynx clear Neck- supple, no JVD Lungs- clear to auscultation Heart- regular rhythm; no murmur Abdomen- +BS, Non tender Extremities- no calf tenderness Neuro- Dementia, moves all 4 extremities, Skin- warm & dry _ (1) Sepsis Sepsis type: sepsis due to unspecified organism Qualified Code(s): A41.9 - Sepsis, unspecified organism (2) Acute renal failure superimposed on stage 3 chronic kidney disease Acute renal failure type: unspecified Qualified Code(s): N17.9 - Acute kidney failure, unspecified; N18.3 - Chronic kidney disease, stage 3 (moderate) (3) Altered mental status Altered mental status type: unspecified Coma depth: Coma timing: Qualified Code(s): R41.82 - Altered mental status, unspecified (4) DM (diabetes mellitus) Diabetes mellitus type: type 2 Diabetes mellitus penitentiary insulin use: without penitentiary use Diabetes mellitus complication status: with kidney complications Diabetes mellitus complication detail: with chronic kidney disease Diabetic retinopathy severity: Proliferative retinopathy type: Diabetes mellitus macular edema: Laterality: Chronic kidney disease stage: stage 3 (moderate) Qualified Code(s): E11.22 - Type 2 diabetes mellitus with diabetic chronic kidney disease; N18.3 - Chronic kidney disease, stage 3 ( moderate) (5) Hypothyroidism Hypothyroidism type: unspecified Qualified Code(s): E03.9 - Hypothyroidism, unspecified
[2018-04-18] MEDS ORDERED: LORazepam 0.25 MG/0.5 ML VIAL IV PRN (17:21)
--- NOTE | 2018-04-18 21:24 | Infectious Disease Progress Nt ---
Date of Service April 18, 2018 Assessment & Plan (1) C. difficile diarrhea: Patient with C. difficile colitis, to try again to treat patient with fidaxomicin. Will continue to follow. Subjective Patient seen in follow-up for C difficile colitis. Now not taking his oral medications today. Hospice care being explored. Review of Systems Unobtainable due to cognitive status Physical Exam 2 Vital Signs (Past 24 Hours): Last Vital Signs Temp 36.4 C L 04/18/18 15:00 Pulse 66 04/18/18 15:00 Resp 18 04/18/18 15:00 BP 156/79 H 04/18/18 15:00 Pulse Ox 94 04/18/18 15:00 Constitutional: WD/WN, vitals as above comfortable; no acute distress Eyes: PERRL, conjunctivae normal, anicteric sclerae ENMT: external ear and nose normal, oropharynx normal Neck: trachea midline, no thyromegaly neck nontender Respiratory: normal respiratory effort, lungs clear to auscultation normal percussion; does not use accessory muscles Cardiovascular: Rate/Rhythm: regular rate and regular rhythm Heart Sounds: normal S1 and normal S2; no gallop, no murmur and no cardiac rub Vessels: normal peripheral pulses; no JVD Gastrointestinal (Abdomen): Inspection/Auscultation: abdomen normal to inspection Percussion/Palpation: + abdomen tender (Slight lower quadrant tenderness) and abdomen soft; no hepatosplenomegaly Musculoskeletal: no cyanosis or clubbing, extremities motor strength 5/5 Spine: thoracic spine normal to inspection and lumbar spine normal to inspection ; no cervical spinal tenderness Skin: no rashes, warm and dry normal turgor; no lesions Neurologic: patellar DTR's 2+ bilat, sensation intact no focal motor deficits Psychiatric: Orientation: alert; + not oriented x 3 Lymphatic: no cervical or axillary lymphadenopathy no inguinal lymphadenopathy Results & Data Laboratory Results Short CBC 04/18/18 Range/Units 08:41 WBC 6.70 (4.8-10.8) K/uL Hgb 12.0 L (14.0-18.0) g/dL Hct 34.6 L (42-52) % Plt Count 168 (130-400) K/uL [facility] 04/18/18 08:41 Sodium 144 Potassium 3.4 L Chloride 114 H Carbon Dioxide 25 BUN 14 Creatinine 2.37 H D Glucose 89 Calcium 7.8 L Diagnostic Findings Microbiology 04/15/18 Unknown Urine,Straight Cath Urine Culture - Final Trisha albicans 04/11/18 11:29 Blood Blood Culture - Final No growth 04/11/18 11:00 Blood Blood Culture - Final No growth 04/11/18 14:35 Stool Escherichia coli Shiga Toxins - Final 04/11/18 14:35 Stool Stool Culture - Final No Salmonella isolated, No Shigella isolated, No Campylobacter jejuni isolated.
[2018-04-18] MEDS: QUETIAPINE FUMARATE 25 MG TABLET PO SCH ×2 (21:44→22:09)
[2018-04-19] MEDS: metroNIDAZOLE 500 MG/100 ML BAG IV SCH ×3 (03:18→18:37)
[2018-04-19] MEDS: D5W AND 1/2NSS + 40MEQ KCL 40 MEQ/1,000 ML BAG IV SCH ×2 (05:47→18:54)
[2018-04-19 07:22] LABS: BUN Creatinine Ratio 7.2 (10-20); Creatinine Clr Calc Pharmacy 17.9 ml/min; Est GFR (African American) 26.9; Est GFR (Non-African American) 23.2; Potassium 3.3 mmol/L (3.5-5.1)
[2018-04-19] MEDS: NORMOSOL-R 1,000 ML IV SCH (07:56)
[2018-04-19] MEDS: LEVOTHYROXINE SODIUM 25 MCG in SYRINGE 0 ML IV SCH (09:08)
[2018-04-19] MEDS: FIDAXOMICIN 200 MG TAB PO SCH ×2 (09:08→21:25)
[2018-04-19] MEDS: INSULIN ASPART 100 UNITS/ML 3 ML PEN SC SCH ×4 (09:08→21:25)
--- NOTE | 2018-04-19 10:40 | Palliative Care Consultation ---
Addendum entered and electronically signed by GORDO Campoverde 13:20: Addendum (Blank) Addendum April 19, 2018 13:17 ROS: Unable to obtain due to severe dementia and extremely [place]. Physical exam: Constitutional: frail appearing, cachectic, no distress, disheveled Eyes: Unable to assess due to confusion and resltessness in bed ENT: dry mucous membranes Neck: No JVD, normal visual inspection Respriatory: No labored breathing, Lungs clear to auscultation Cardio: RRR, no edema, no murmur, no edema Abdomen: soft, NT, ND, +BS. Extremities: moves all extremities, thin Neuro: awake, confused, oriented to person only, unable to follow commands or answer questions Original Note: Date of Consultation April 19, 2018 Assessment & Plan (1) Goals of care, counseling/discussion: -87 year old male with PMH DM, HTN, severe/end-stage dementia, hypothyroidism, and cholangitis, presented with fever and sepsis related to C. diff colitis. Patient was just in [facility] from 03/25-04/03/18 secondary to klebsiella bacteremia, acute cholangitis s/p ERCP with stent placement discharged home on 7 day course of oral keflex. Patient was made a DNR during last admission after discussion with palliative care and his daughter/POA, Mariana Lugo. Patient has been here for a week and really has not improved. His creatinine is worsening, not eating/drinking, refusing meds on and off. He remains extremely weak, not getting out of bed. Palliative care is consulted to discuss goals of care. -Patient is known to palliative care service. Met with him today in room 459. 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 He is quite confused at this time, and is at baseline. I called his daughter, Mariana, and spoke with her at length. -Mariana agrees that ptient is not improving, and in fact is likely worsening overall. She would like to take patient home with hospice. -FAST score is 7c, indicative of severe/end-stage dementia. Certainly hospice appropriate. -In regards to continuing the abx for C. diff, patient's daughter really wants to continue this at home. I did express my concern that he hasn't been taking it here, but his daughter believes once he is at home in his normal environment that he might continue to take it. Case management is working on getting Dificid approved through insurance. -Referral to be made to [facility]. Patient's daughter prefers a monday discharge to home. Dr. Mcgee updated and aware. (2) C. difficile diarrhea: (3) Dementia: Alzheimer's disease onset: Dementia behavioral disturbance: without behavioral disturbance Dementia type: unspecified type Qualified Code( s): F03.90 - Unspecified dementia without behavioral disturbance Supervising Physician Co-Signing Physician Notes Patient known to our service from prior hospitalization. Patient seen and examined-no family at bedside. Patient with severe, end-stage dementia. PE: No acute distress, patient mildly restless in bed HEENT: Patient deaf and blind Respiratory: Unlabored CV: Regular rate Abdomen: Not distended Extremities: No edema Skin: Warm, no pallor Neuro: Difficult to assess due to blindness and deafness-patient with known [id number] Agree with above note, assessment and plan as per THERESA Alvarez. Will continue to follow as needed to assist family with medical decision making History of Present Illness Attending Physician: Aristeo Mcgee MD History of Present Illness This 87 year old male with PMH DM, HTN, severe/end-stage dementia, hypothyroidism, and cholangitis, presented with fever and sepsis related to C. diff colitis. Patient was just in [facility] from 03/25-04/03/18 secondary to klebsiella bacteremia, acute cholangitis s/p ERCP with stent placement discharged home on 7 day course of oral keflex. Patient was made a DNR during last admission after discussion with palliative care and his daughter/POA, Mariana Lugo. Patient has been here for a week and really has not improved. His creatinine is worsening, not eating/drinking, refusing meds on and off. He remains extremely weak, not getting out of bed. Palliative care is consulted to discuss goals of care. See A&P for details. Thank you kindly for this consult. I will follow as needed. Allergies Allergy/AdvReac Type Severity Reaction Status Date / Time No Known Allergies Allergy Unverified 04/11/18 11:56 Home Medications Home Medications Medication Instructions Recorded Confirmed Type acetaminophen [Tylenol Extra 500 mg PO Q6H PRN 03/26/18 04/11/18 History Strength] calcium polycarbophil 625 mg PO DAILY 03/26/18 04/11/18 History cetirizine 5 mg PO DAILY 03/26/18 04/11/18 History cholecalciferol (vitamin D3) 2,000 unit PO DAILY 03/26/18 04/11/18 History [Vitamin D3] cyanocobalamin (vitamin B-12) 500 mcg PO DAILY 03/26/18 04/11/18 History food supplemt, lactose-reduced 1 btl PO BID 03/26/18 04/11/18 History [Ensure Clear] food supplemt, lactose-reduced 1 btl PO DAILY 03/26/18 04/11/18 History [Ensure] levothyroxine 50 mcg PO QAM 03/26/18 04/11/18 History lorazepam 0.25 mg PO HS 03/26/18 04/11/18 History lorazepam 0.5 mg PO TID 03/26/18 04/11/18 History melatonin 6 mg PO HS PRN 03/26/18 04/11/18 History menthol-zinc oxide [Calmoseptine] 1 applic TOPICAL UD PRN 03/26/18 04/11/18 History quetiapine 25 mg PO HS 03/26/18 04/11/18 History sennosides 8.6 mg PO BID PRN 03/26/18 04/11/18 History potassium chloride 10 meq PO DAILY #30 tab 04/02/18 04/11/18 Rx Patient History Medical History Goals of care, counseling/discussion Encounter for pre-operative examination Discharge planning issues Limited code status, all resuscitation measures excluding chest compressions Acute renal failure superimposed on stage 3 chronic kidney disease (Acute) Severe sepsis (Acute) Cholangitis concurrent with and due to calculus of gallbladder (Acute) Altered mental status (Acute) DM (diabetes mellitus) (Chronic) HTN (hypertension) (Chronic) In past only Dementia (Chronic) Dehydration (Resolved) Hernia (Resolved) Hypothyroidism (Chronic) Gallstones Cholangitis (Resolved) Gram negative sepsis (Resolved) Hypotension (Resolved) Influenza A (Resolved) Sepsis associated hypotension (Resolved) on low dose vasopressor UTI (urinary tract infection) (Resolved) Surgical History Hx of inguinal hernia surgery (Chronic) Status post endoscopic retrograde cholangiopancreatography 03/26 Dr. Franco secondary to cholangitis Family History Other Family history non-contributory Social History Current Living Situation: Alone Current Living Situation Comment: Has 03/10 caregivers, including daughter Feels Safe at Home: Yes Smoking Status: Former smoker Second Hand Exposure: No Hx Alcohol Use: No Hx Substance Use: No Beliefs That Will Affect Care: None Preferred Language: Belarusian Communication Ability: Impaired Physical Exam 2 Vital Signs (Past 24 Hours): Last Vital Signs Temp 36.4 C L 04/18/18 15:00 Pulse 66 04/18/18 15:00 Resp 18 04/18/18 15:00 BP 156/79 H 04/18/18 15:00 Pulse Ox 94 04/18/18 15:00 Time Spent Midlevel 75 minutes with >50% of time spent at bedside with patient and on phone with daughter discussing condition and goals of care.
--- NOTE | 2018-04-19 15:11 | Hospitalist Progress Note ---
Date of Service April 19, 2018 Assessment & Plan (1) Sepsis: Meet sepsis criteria with fever 39.1, tachycardia heart rate greater than 100, leukocytosis 15.3, lactic acidosis 3.25 Mostly related to C-diff CXR showed subtle right upper lung zone airspace opacities, likely representing a minimal pneumonitis. CT abd/pelvis showed mild sigmoid diverticulitis Received bread spectrum abx with IV zosyn and Vanco and IVF IV Vanco and Zosyn discontinued Blood cx no growth stool for Cdiff positive ID on board recommeded to continue metronidazole and changed vancomycin oral to fidaxomycin due to increase chance of recurrent C.difficile (2) C. difficile diarrhea: Based on reviewing the notes on this admission, management of C.difficile has been difficult and irregular because patient primarily is not taking oral medications that can treat C.difficile. The mainstay has been IV metronidazole which was started since 04/11/18 and contininuing. To date, patient had attempts made with oral vancomycin as tablet or liquid form and then oral Fidaxomycin. But patient has not been able to consistently to oral medications The episodes of diarrhea has been resolving but it is unclear whether patient has a good chance of clearing C.difficile based on IV metronidazole alone Plans have been made to work on transitioning patient from hospital towards hospice at home and hopefully that when patient is at more familiar home environment that he will be able to eat more and take oral medications more consistently such as oral Fidaxomycin (3) Acute renal failure superimposed on stage 3 chronic kidney disease: Acute renal failure superimposed on stage 3 chronic kidney disease: prior baseline 1.2; was 1.4 at 04/04 hospital discharge 1.7 on presentation on 04/11, up to 2.5 next day, peaked at 4.3 on 04/13; today's labs creatinine 2.43 D5W 03/14 normal with potassium for hydration and nuitrition (4) Altered mental status: Metabolic encephalopathy due to sepsis/cidf/DAVION advanced dementia had been on oral ativan at home, is on IV prn while inpatient (5) DM (diabetes mellitus): A1C 03/26/18 was 6.2 sliding scale insulin as needed (6) Hypothyroidism: Continue IV levothyroxine (7) Hypokalemia: Mostly due to diarrhea generally has resolved supplement with IV potassium as needed (8) History of cholangitis: S/P ERCP and stent placement in the last admission Case discussed with GI Stent function well will plan for outpatient ERCP in 4-8 weeks to remove stent if patient and his daughter agrees (9) Cholelithiasis: No signs of acute cholecystitis, cholangitis, or choledocholithiasis Due for biliary stent removal in 4 weeks Will Plan for outpatient gallbladder removal as per surgery if patient and his daughter agrees (10) Hypernatremia: generally resolved serum sodium is 146. will trend (11) Hematuria: Patient had hematuria on this admission from trauma after he pulled the taylor taylor removed on 04/18/18 but continues to have urinary retention and taylor to be placed back on 04/19/18 (12) DVT prophylaxis: SCDs CODE STATUS DNR patient's daughter Mariana at bedside (cell phone [phone] and work ) disposition: continue with palliative care and case management assistance in setting up hospice care at home Subjective Patient at bedside is is blind, hard of hearing Patient nonverbal during physical exam. generally prefers to sleep. no acute pain elicited during exam Physical Exam 2 Vital Signs (Past 24 Hours): Last Vital Signs Temp 36.4 C L 04/18/18 15:00 Pulse 66 04/18/18 15:00 Resp 18 04/18/18 15:00 BP 156/79 H 04/18/18 15:00 Pulse Ox 94 04/18/18 15:00 Constitutional: + thin Eyes: eyes closed ENMT: external ear and nose normal, oropharynx normal Neck: normal visual inspection and trachea midline Respiratory: normal respiratory effort, lungs clear to auscultation Cardiovascular: Rate/Rhythm: regular rate Gastrointestinal (Abdomen): normal bowel sounds, soft, nontender, no hepatosplenomegaly Musculoskeletal: Head/Neck/Chest: normocephalic and head atraumatic _ (1) DM (diabetes mellitus) Chronic kidney disease stage: stage 3 (moderate) Diabetes mellitus complication detail: with chronic kidney disease Diabetes mellitus complication status: with kidney complications Diabetes mellitus fdc insulin use: without manager long term care use Diabetes mellitus macular edema: Diabetes mellitus type: type 2 Diabetic retinopathy severity: Laterality: Proliferative retinopathy type: Qualified Code(s): E11.22 - Type 2 diabetes mellitus with diabetic chronic kidney disease; N18.3 - Chronic kidney disease, stage 3 (moderate) (2) Hypothyroidism Hypothyroidism type: unspecified Qualified Code(s): E03.9 - Hypothyroidism, unspecified (3) Acute renal failure superimposed on stage 3 chronic kidney disease Acute renal failure type: unspecified Qualified Code(s): N17.9 - Acute kidney failure, unspecified; N18.3 - Chronic kidney disease, stage 3 (moderate) (4) Sepsis Sepsis type: sepsis due to unspecified organism Qualified Code(s): A41.9 - Sepsis, unspecified organism (5) Altered mental status Altered mental status type: unspecified Coma depth: Coma timing: Qualified Code(s): R41.82 - Altered mental status, unspecified
[2018-04-19] MEDS: QUETIAPINE FUMARATE 25 MG TABLET PO SCH (21:25)
[2018-04-20] MEDS: metroNIDAZOLE 500 MG/100 ML BAG IV SCH ×3 (02:03→17:51)
[2018-04-20 06:52] LABS: Albumin Globulin Ratio 0.5 (0.9-2); Albumin Level 2.2 gm/dl (3.4-5.0); BUN Creatinine Ratio 6.6 (10-20); Bilirubin,Total 0.9 mg/dl (0.2-1); Calcium 8.2 mg/dl (8.5-10.1); Creatinine Clr Calc Pharmacy 19.2 ml/min; Est GFR (African American) 29.2; Est GFR (Non-African American) 25.2; Globulin 4.5 gm/dl (2.5-4.0); Total Protein 6.7 gm/dl (6.4-8.2)
[2018-04-20] MEDS: FIDAXOMICIN 200 MG TAB PO SCH ×2 (07:27→20:56)
[2018-04-20] MEDS: INSULIN ASPART 100 UNITS/ML 3 ML PEN SC SCH ×4 (08:09→20:44)
[2018-04-20] MEDS ORDERED: ACETAMINOPHEN 1,000 MG/100 ML VIAL IV ONE (08:52)
[2018-04-20] MEDS ORDERED: ACETAMINOPHEN 1,000 MG/100 ML VIAL IV PRN (09:00)
[2018-04-20] MEDS: LEVOTHYROXINE SODIUM 25 MCG in SYRINGE 0 ML IV SCH (09:36)
[2018-04-20 09:38] LABS: Basophils # (auto) 0.01 K/uL (0-0.2); Basophils % (auto) 0.1 %; Eosinophils % (auto) 0.6 %; Hematocrit (blood only) 38.7 % (42-52); Hemoglobin 13.1 g/dL (14.0-18.0); Immature Granulocytes # (auto) 0.05 K/uL (0.00-0.02); Immature Granulocytes % (auto) 0.3 %; Lymphocytes # (auto) 1.39 K/uL (1.2-3.4); Lymphocytes % (auto) 8.8 %; Mean Platelet Volume 10.7 fL (7.4-10.4); Monocytes # (auto) 0.83 K/uL (0.11-0.59); Monocytes % (auto) 5.2 %; Neutrophils # (auto) 13.47 K/uL (1.4-6.5); Platelet Count 187 K/uL (130-400); RDW Coefficient of Variation 14.4 % (11.5-14.5); RDW Standard Deviation 51.1 fL (36.4-46.3); Red Blood Count 3.91 M/uL (4.7-6.1); White Blood Count 15.85 K/uL (4.8-10.8)
[2018-04-20 09:51] LABS: Mean Corpuscular Hgb Conc 33.9 g/dL (32-36)
[2018-04-20 10:18] LABS: Appearance Urine Cloudy (Clear); Bacteria Urine Automated Negative (Negative); Bilirubin Urine Negative (Negative); Color Urine Yellow; Glucose Urine UA Negative (Negative); Ketones Urine Negative (Negative); Leukocyte Esterase Urine 3+ (Negative); Nitrite Urine Negative (Negative); Urobilinogen Urine Negative (Negative); WBC Urine Automated >30 /hpf (0-5); pH Urine 7.5 (4.5-7.5)
[2018-04-20 10:20] LABS: Protein Urine Negative (Negative)
[2018-04-20] MEDS: D5W AND 1/2NSS 1,000 ML IV SCH (11:20)
--- NOTE | 2018-04-20 12:36 | Hospitalist Progress Note ---
Date of Service April 20, 2018 Assessment & Plan (1) Sepsis: Meet sepsis criteria with fever 39.1, tachycardia heart rate greater than 100, leukocytosis 15.3, lactic acidosis 3.25 Mostly related to C-diff CXR showed subtle right upper lung zone airspace opacities, likely representing a minimal pneumonitis. CT abd/pelvis showed mild sigmoid diverticulitis Received broad spectrum abx with IV zosyn and Vanco and IV fluids and this hospital stay. as per previous hospitalist the IV Vanco and Zosyn discontinued as Blood cx no growth and stool for Cdiff positive Based on reviewing the notes on this admission, management of C.difficile has been difficult and irregular because patient primarily is not taking oral medications that can treat C.difficile. The mainstay has been IV metronidazole which was started since 04/11/18 and contininuing. To date, patient had attempts made with oral vancomycin as tablet or liquid form and then oral Fidaxomycin. But patient has not been able to consistently to oral medications The episodes of diarrhea has been resolving but it is unclear whether patient has a good chance of clearing C.difficile based on IV metronidazole alone 04/20/18 Patient had fever today of 38.5 Celsius. Urinalysis negative and blood cultures were sent. Patient generally sleeping and no acute pain. cannot give review of systems information Palliative care and manager field service have discussed with patient's daughter Mariana [phone] and Mariana had confirmed previous plans for home hospice on Monday04/21/18 (hospital bed to be delivered, Fidaxomicin approved as outpatient for treatment of C.difficile if patient can take orals with minimal copay, and that if patient cannot take orals at home for fever then rectal acetaminophen can be given) and no other workup for the fever Hospitalist called patient's daughter to update whether comfort care measures should be implemented today. Patient's daughter apparently still would like the IV metronidazole to be continued to continue the partial C.difficile treatment. Hospitalist have commented that while the current urinalysis were negative, that blood cultures were and this fever may be from C.difficile infection versus another source of infection and that blood culture results are unlikely to return by Monday04/21/18. Hospitalist have asked daughter whether she will return patient to hospital if blood cultures are positive for other source of infection in the future. Patient's daughter said she will come in person to discuss further goals of care (2) C. difficile diarrhea: as above (3) Acute renal failure superimposed on stage 3 chronic kidney disease: Acute renal failure superimposed on stage 3 chronic kidney disease: prior baseline 1.2; was 1.4 at 04/04 hospital discharge 1.7 on presentation on 04/11, up to 2.5 next day, peaked at 4.3 on 04/13; today's labs creatinine 2.27 D5W 03/14 normal for hydration and nuitrition (4) Altered mental status: Metabolic encephalopathy due to sepsis/cidf/DAVION advanced dementia had been on oral ativan at home, is on IV prn while inpatient (5) DM (diabetes mellitus): A1C 03/26/18 was 6.2 sliding scale insulin as needed (6) Hypothyroidism: Continue IV levothyroxine (7) Hypokalemia: Mostly due to diarrhea generally has resolved supplement with IV potassium as needed (8) History of cholangitis: S/P ERCP and stent placement in the last admission Case discussed with GI Stent function well will plan for outpatient ERCP in 4-8 weeks to remove stent if patient and his daughter decides for this intervention (9) Cholelithiasis: No signs of acute cholecystitis, cholangitis, or choledocholithiasis Due for biliary stent removal in 4 weeks Will Plan for outpatient gallbladder removal as per surgery if patient and his daughter decides for this intervention (10) Hypernatremia: generally resolved serum sodium is 145 (11) Hematuria: Patient had hematuria on this admission from trauma after he pulled the taylor taylor removed on 04/18/18 but continues to have urinary retention and taylor placed back on 04/19/18 resume taylor (12) DVT prophylaxis: SCDs CODE STATUS DNR patient's daughter Mariana at bedside (cell phone [phone] and work ) goals of care being addressed today when patient's daughter arrives in person Subjective Patient had fever today of 38.5 Celsius. Urinalysis negative and blood cultures were sent. Patient generally sleeping and no acute pain. cannot give review of systems information Palliative care and manager field service have discussed with patient's daughter Mariana [phone] and Mariana had confirmed previous plans for home hospice on Monday04/21/18 (hospital bed to be delivered, Dificid approved as outpatient for treatment of C.difficile if patient can take orals with minimal copay, and that if patient cannot take orals at home for fever then rectal acetaminophen can be given) and no other workup for the fever Hospitalist called patient's daughter to update whether comfort care measures should be implemented today. Patient's daughter apparently still would like the IV metronidazole to be continued to continue the partial C.difficile treatment. Hospitalist have commented that while the current urinalysis were negative, that blood cultures were and this fever may be from C.difficile infection versus another source of infection and that blood culture results are unlikely to return by Monday04/21/18. Hospitalist have asked daughter whether she will return patient to hospital if blood cultures are positive for other source of infection in the future. Patient's daughter said she will come in person to discuss further goals of care Physical Exam 2 Vital Signs (Past 24 Hours): Last Vital Signs Temp 38.3 C H 04/20/18 07:58 Pulse 78 04/20/18 06:57 Resp 22 04/20/18 06:57 BP 169/82 H 04/20/18 06:57 Pulse Ox 94 04/20/18 06:57 Constitutional: + thin ENMT: external ear and nose normal, oropharynx normal Neck: normal visual inspection and trachea midline Respiratory: normal respiratory effort, lungs clear to auscultation Cardiovascular: Rate/Rhythm: regular rate Gastrointestinal (Abdomen): normal bowel sounds, soft, nontender, no hepatosplenomegaly Musculoskeletal: Head/Neck/Chest: normocephalic and head atraumatic _ (1) DM (diabetes mellitus) Chronic kidney disease stage: stage 3 (moderate) Diabetes mellitus complication detail: with chronic kidney disease Diabetes mellitus complication status: with kidney complications Diabetes mellitus group home insulin use: without group home use Diabetes mellitus macular edema: Diabetes mellitus type: type 2 Diabetic retinopathy severity: Laterality: Proliferative retinopathy type: Qualified Code(s): E11.22 - Type 2 diabetes mellitus with diabetic chronic kidney disease; N18.3 - Chronic kidney disease, stage 3 (moderate) (2) Hypothyroidism Hypothyroidism type: unspecified Qualified Code(s): E03.9 - Hypothyroidism, unspecified (3) Acute renal failure superimposed on stage 3 chronic kidney disease Acute renal failure type: unspecified Qualified Code(s): N17.9 - Acute kidney failure, unspecified; N18.3 - Chronic kidney disease, stage 3 (moderate) (4) Sepsis Sepsis type: sepsis due to unspecified organism Qualified Code(s): A41.9 - Sepsis, unspecified organism (5) Altered mental status Altered mental status type: unspecified Coma depth: Coma timing: Qualified Code(s): R41.82 - Altered mental status, unspecified
--- NOTE | 2018-04-20 12:36 | Palliative Care Progress Note ---
Date of Service April 20, 2018 Assessment & Plan (1) Goals of care, counseling/discussion: -87 year old male with PMH DM, HTN, severe/end-stage dementia, hypothyroidism, and cholangitis, presented with fever and sepsis related to C. diff colitis. Patient was just in [facility] from 03/25-04/03/18 secondary to klebsiella bacteremia, acute cholangitis s/p ERCP with stent placement discharged home on 7 day course of oral keflex. Patient was made a DNR during last admission after discussion with palliative care and his daughter/POA, Mariana Lugo. Patient has been here for a week and really has not improved. His creatinine is worsening, not eating/drinking, refusing meds on and off. He remains extremely weak, not getting out of bed. Palliative care is consulted to discuss goals of care. -Spiked temp today at 38.3C. Patient is more calm and somnolent today, no distress. -Uncertain of the source of fever- failed C. diff treatment, UTI, biliary stent , etc.?? Spoke with patient's daughter/POA Mariana. She understand that the patient's prognosis is extremely poor. On top of acute infectious process, patient still has end-stage dementia, weakness, frailty, refusal to eat or take meds, periods of agitation, etc. -After discussion, Mariana does not want any further workup and would like to proceed with sending patient home on hospice tomorrow. -Case management is setting everything up for 1100 tomorrow. Dificid was approved and will be delivered to the home tomorrow, but patient might not be willing or able to take it-- daughter understands. -Would use lorazepam 1mg PO/SL Q4h PRN anxiety/agitation if patient becomes agitated. -Patient has no pain currently but would utilize Roxanol 5mg PO/SL Q3h PRN pain or SOB if pain or discomfort arises. (2) C. difficile diarrhea: (3) Dementia: Subjective Patient is more somnolent today, appears much more comfortable and calm today. Has Guaman catheter back in place. Spiked temp of 38.3 today, spoke to daughter Mariana and Dr. Mcgee about plan. See A&P. ROS: Unable to obtain due to severe dementia and extremely [place]. Physical exam: Constitutional: frail appearing, cachectic, no distress Eyes: Unable to assess due to confusion ENT: dry mucous membranes Neck: No JVD but able to see jugular pulse due to cachexia, normal visual inspection Respriatory: No labored breathing, Lungs clear to auscultation Cardio: RRR, no edema, no murmur, no edema Abdomen: soft, NT, ND, +BS. Extremities: moves all extremities, thin Neuro: does wake to verbal stimuli but is tired today, confused, oriented to person only, unable to follow commands or answer questions Physical Exam 2 Vital Signs (Past 24 Hours): Last Vital Signs Temp 38.3 C H 04/20/18 07:58 Pulse 78 04/20/18 06:57 Resp 22 04/20/18 06:57 BP 169/82 H 04/20/18 06:57 Pulse Ox 94 04/20/18 06:57 Time Spent Midlevel 65 minutes with >50% of time spent at bedside with patient and discussing with patient's daughter about condition and GOC. _ (1) Dementia Dementia type: unspecified type Alzheimer's disease onset: Dementia behavioral disturbance: without behavioral disturbance Qualified Code(s): F03.90 - Unspecified dementia without behavioral disturbance
[2018-04-20] MEDS: QUETIAPINE FUMARATE 25 MG TABLET PO SCH (20:56)
[2018-04-21] MEDS: metroNIDAZOLE 500 MG/100 ML BAG IV SCH ×2 (02:14→10:09)
[2018-04-21] MEDS ORDERED: ACETAMINOPHEN 650 MG SUPP PR PRN (07:05)
[2018-04-21] MEDS ORDERED: LORazepam 1 MG TAB SL PRN (07:07)
[2018-04-21] MEDS ORDERED: MoRPHine SULFATE 5 MG/0.25 ML UDP PO PRN (07:09)
--- NOTE | 2018-04-21 08:25 | Hospitalist Progress Note ---
Date of Service April 21, 2018 Assessment & Plan (1) Sepsis: Meet sepsis criteria with fever 39.1, tachycardia heart rate greater than 100, leukocytosis 15.3, lactic acidosis 3.25 Mostly related to C-diff CXR showed subtle right upper lung zone airspace opacities, likely representing a minimal pneumonitis. CT abd/pelvis showed mild sigmoid diverticulitis Received broad spectrum abx with IV zosyn and Vanco and IV fluids and this hospital stay. as per previous hospitalist the IV Vanco and Zosyn discontinued as Blood cx no growth and stool for Cdiff positive Based on reviewing the notes on this admission, management of C.difficile has been difficult and irregular because patient primarily is not taking oral medications that can treat C.difficile. The mainstay has been IV metronidazole which was started since 04/11/18 and contininuing. To date, patient had attempts made with oral vancomycin as tablet or liquid form and then oral Fidaxomycin. But patient has not been able to consistently to oral medications The episodes of diarrhea has been resolving but it is unclear whether patient has a good chance of clearing C.difficile based on IV metronidazole alone 04/20/18 Patient had fever today of 38.5 Celsius. Urinalysis negative and blood cultures were sent. Patient generally sleeping and no acute pain. cannot give review of systems information Palliative care and printing manager have discussed with patient's daughter Mariana [phone] and Mariana had confirmed previous plans for home hospice on Monday04/21/18 (hospital bed to be delivered, (fidaxomicin approved as outpatient for treatment of C.difficile if patient can take orals with minimal copay, and that if patient cannot take orals at home for fever then rectal acetaminophen can be given) and no other workup for the fever Hospitalist called patient's daughter to update whether comfort care measures should be implemented today. Patient's daughter apparently still would like the IV metronidazole to be continued to continue the partial C.difficile treatment. Hospitalist have commented that while the current urinalysis were negative, that blood cultures were and this fever may be from C.difficile infection versus another source of infection and that final blood culture results are unlikely to return by Monday04/21/18. 04/21/18 the blood cultures from 04/20/18 have returned as gram negative bacilli have discussed with patient's daughter about blood culture results and goal would be to treat with oral antibiotic only and today to discharge with home hospice and no intention by patient's daughter to continue further hospitalization now or in the future goals of care: -gram negative bacteremia: oral ciprofloxacin 500 mg daily for 14 days -patient has prescription of fidaxomicin 200 mg twice a day for full 10 day course to be given in case patient can take oral regimen daily and consistently at home with home hospice -as per palliative care service recommendations discharge prescriptions have been made for lorazepam 1mg PO/SL Q4h PRN anxiety/agitation if patient becomes agitated; AND while Patient has no pain currently Roxanol 5mg PO/SL Q3h PRN pain or SOB if pain or discomfort arises. -Prescription made for rectal Acetaminophen 650 mg every 4 hours as needed for fever (2) C. difficile diarrhea: as above (3) Acute renal failure superimposed on stage 3 chronic kidney disease: Acute renal failure superimposed on stage 3 chronic kidney disease: prior baseline 1.2; was 1.4 at 04/04/18 hospital discharge 1.7 on presentation on 04/11/18, peaked at 4.3 on 04/13/18; creatinine 2.43 by at this point in time patient has had almost daily IV fluids while inpatient and that the renal function has not returned to baseline discharge to home with hospice (4) Altered mental status: Metabolic encephalopathy due to sepsis/c.difficile/DAVION advanced dementia had been on oral ativan at home, is on IV prn while inpatient Has Vision impairment Has Hearing Difficulty (5) DM (diabetes mellitus): A1C 03/26/18 was 6.2 sliding scale insulin as needed while in the hospital will not likely need insulin coverage at home with hospice given poor oral intake (6) Hypothyroidism: IV levothyroxine had been given in the hopital in place of oral Levothyroxine patient can take home dose oral Levothyroxine if possible when on home hospice (7) Hypokalemia: Mostly due to diarrhea generally has resolved has resolved with IV potassium supplmentation (8) History of cholangitis: S/P ERCP and stent placement in the last admission Case discussed with GI has billiary stent functional from previous hospital admission patient unlikely will proceed with ERCP for stent removal as outpatient as he is being discharged to home with home hospice. Patient's family member can re- discuss with [facility] gastroenterology clinic in future if patient' s health can tolerate procedure as outpatient (9) Cholelithiasis: No signs of acute cholecystitis, cholangitis, or choledocholithiasis unlikely to proceed with general surgery to remove gallbladder at this time as patient being discharged home with hospice (10) Hypernatremia: generally resolved serum sodium is 145 (11) Hematuria: Patient had hematuria on this admission from trauma after he pulled the taylor taylor removed on 04/18/18 but continues to have urinary retention and taylor placed back on 04/19/18 resume taylor continue with taylor on discharge to home with home hospice (12) DVT prophylaxis: SCDs CODE STATUS DNR patient's daughter Mariana (cell phone [phone] and work [phone]) Primary Discharge Diagnosis Sepsis, Lactic Acidosis, Clostridium Difficile Infection, Acute kidney Injury ( Acute renal failure), Altered Mental Status (Metabolic encephalopathy), Vision impairment, Hearing Difficulty Discharge Instructions Discharge to home with home hospice -gram negative bacteremia: oral ciprofloxacin 500 mg daily for 14 days -patient has prescription of fidaxomicin 200 mg twice a day for full 10 day course to be given in case patient can take oral regimen daily and consistently at home with home hospice -as per palliative care service recommendations discharge prescriptions have been made for lorazepam 1mg PO/SL Q4h PRN anxiety/agitation if patient becomes agitated; AND while Patient has no pain currently Roxanol 5mg PO/SL Q3h PRN pain or SOB if pain or discomfort arises. -Prescription made for rectal Acetaminophen 650 mg every 4 hours as needed for fever -patient has billiary stent functional from previous hospital admission patient unlikely will proceed with ERCP for stent removal as outpatient as he is being discharged to home with home hospice. Patient's family member can re- discuss with [facility] gastroenterology clinic in future if patient' s health can tolerate procedure as outpatient Subjective No fever overnight Patient responds with okay when physician or nurse speaks to him although it is unclear whether he can really hear or truly understand what is spoken to him Patient not in distress. No acute pain elicited breathing on room air and normal respiratory rate the blood cultures from 04/20/18 have returned as gram negative bacilli have discussed with patient's daughter Mariana and goal would be to treat with oral antibiotic only and today to discharge with home hospice and no intention by patient's daughter to continue further hospitalization now or in the future Physical Exam 2 Vital Signs (Past 24 Hours): Last Vital Signs Temp 36.8 C 04/21/18 06:58 Pulse 73 04/21/18 06:58 Resp 16 04/21/18 06:58 BP 172/83 H 04/21/18 06:58 Pulse Ox 93 04/21/18 06:58 Constitutional: + thin ENMT: external ear and nose normal, oropharynx normal Neck: normal visual inspection and trachea midline Respiratory: normal respiratory effort, lungs clear to auscultation Cardiovascular: Rate/Rhythm: regular rate Gastrointestinal (Abdomen): normal bowel sounds, soft, nontender, no hepatosplenomegaly Musculoskeletal: Head/Neck/Chest: normocephalic and head atraumatic _ (1) DM (diabetes mellitus) Chronic kidney disease stage: stage 3 (moderate) Diabetes mellitus complication detail: with chronic kidney disease Diabetes mellitus complication status: with kidney complications Diabetes mellitus residential insulin use: without residential use Diabetes mellitus macular edema: Diabetes mellitus type: type 2 Diabetic retinopathy severity: Laterality: Proliferative retinopathy type: Qualified Code(s): E11.22 - Type 2 diabetes mellitus with diabetic chronic kidney disease; N18.3 - Chronic kidney disease, stage 3 (moderate) (2) Hypothyroidism Hypothyroidism type: unspecified Qualified Code(s): E03.9 - Hypothyroidism, unspecified (3) Acute renal failure superimposed on stage 3 chronic kidney disease Acute renal failure type: unspecified Qualified Code(s): N17.9 - Acute kidney failure, unspecified; N18.3 - Chronic kidney disease, stage 3 (moderate) (4) Sepsis Sepsis type: sepsis due to unspecified organism Qualified Code(s): A41.9 - Sepsis, unspecified organism (5) Altered mental status Altered mental status type: unspecified Coma depth: Coma timing: Qualified Code(s): R41.82 - Altered mental status, unspecified
[2018-04-21] MEDS: D5W AND 1/2NSS 1,000 ML IV SCH (08:43)
[2018-04-21] MEDS: FIDAXOMICIN 200 MG TAB PO SCH ×2 (08:50→08:55)
[2018-04-21] MEDS: INSULIN ASPART 100 UNITS/ML 3 ML PEN SC SCH (08:55)
--- NOTE | 2018-04-21 09:26 | Discharge Summary ---
Date of Service April 21, 2018 Admission HPI Per Admitting Provider This is an 87 year old male with significant PMH of Advanced dementia, T2DM, HTN , hypothyroidism, deafness, blindness who presents to [facility] ED with fever x 1 day. Daughter who is caregiver of patient at bedside. He resides at home with 24/7 care. Patient was recently confined at [facility] 03/25-04/03/18 secondary to klebsiella bacteremia, acute cholangitis s/p ERCP with stent placement discharged home on 7 day course of oral keflex. Per daughter pt completed course of antibiotic therapy. History unable to be obtained from patient. Upon discharge patient had been doing well, tolerating po intake. No coughing or choking on foods. He eats pureed meals due to refusing to wear dentures. Approx 2 days ago had developed loose stools. When another caregiver checked on patient this a.m. noted him to be febrile at 103. Per daughter no other significant abnormality; however difficult to ascertain given patient underlying cognitive issues. She has noticed a moist cough that started today. Admission Exam Per Admitting Provider Gen: Thin, Cachectic M, lying in bed, mumbling but otherwise non verbal given hearing impairment/blindness, NAD, Head: Normocephalic, Atraumatic, Eyes: Sclera normal, no conjunctival injection, PERRLA, EOMI ENT: Gross hearing intact, normal pharynx, mucous membranes moist Neck: supple, no adenopathy, JVD, no bruit, Resp: Diminished breathsounds given poor insp effort/not following commands but otherwise clear to auscultation b/l, no wheeze, rales, rhonchi. Normal insp/ exp effort, no accessory muscle use +moist cough noted CV: tachycardic rate, regular rhythm, no murmur, rub, gallop, or ectopy Abd: +BS x 4, soft, nontender, nondistended Musculoskeletal: not obtained given patient not following commands Extremities: No edema bilaterally Skin: warm, moist, no rash, mild turgor, cap refill < 2sec Neuro: unable to assess given patients mental status : deferred Principal Diagnosis Sepsis, Lactic Acidosis, Clostridium Difficile Infection, Acute kidney Injury ( Acute renal failure), Altered Mental Status (Metabolic encephalopathy), Vision impairment, Hearing Difficulty Discharge Exam Constitutional + thin ENMT external ear and nose normal, oropharynx normal Neck normal visual inspection and trachea midline Respiratory normal respiratory effort, lungs clear to auscultation Cardiovascular Rate/Rhythm: regular rate Gastrointestinal (Abdomen) normal bowel sounds, soft, nontender, no hepatosplenomegaly Musculoskeletal Head/Neck/Chest: normocephalic and head atraumatic Discharge Data Allergies Allergy/AdvReac Type Severity Reaction Status Date / Time No Known Allergies Allergy Unverified 04/11/18 11:56 Consultations 04/11/18 13:13 ED Decision to Admit Stat 04/11/18 14:23 Consult General Surgery Routine 04/11/18 16:37 Consult Case Management - Discharge Planning Routine 04/11/18 18:54 Consult Infectious Diseases Routine 04/11/18 18:55 Consult Gastroenterology Routine 04/13/18 06:30 Consult Nephrology Routine 04/18/18 16:40 Consult Palliative Care Routine Ordered Studies 04/11/18 11:02 CT abd pelvis wo con Stat Hospital Course (1) Sepsis: Meet sepsis criteria with fever 39.1, tachycardia heart rate greater than 100, leukocytosis 15.3, lactic acidosis 3.25 Mostly related to C-diff CXR showed subtle right upper lung zone airspace opacities, likely representing a minimal pneumonitis. CT abd/pelvis showed mild sigmoid diverticulitis Received broad spectrum abx with IV zosyn and Vanco and IV fluids and this hospital stay. as per previous hospitalist the IV Vanco and Zosyn discontinued as Blood cx no growth and stool for Cdiff positive Based on reviewing the notes on this admission, management of C.difficile has been difficult and irregular because patient primarily is not taking oral medications that can treat C.difficile. The mainstay has been IV metronidazole which was started since 04/11/18 and contininuing. To date, patient had attempts made with oral vancomycin as tablet or liquid form and then oral Fidaxomycin. But patient has not been able to consistently to oral medications The episodes of diarrhea has been resolving but it is unclear whether patient has a good chance of clearing C.difficile based on IV metronidazole alone 04/20/18 Patient had fever today of 38.5 Celsius. Urinalysis negative and blood cultures were sent. Patient generally sleeping and no acute pain. cannot give review of systems information Palliative care and hotel assistant general manager have discussed with patient's daughter Mariana [phone] and Mariana had confirmed previous plans for home hospice on Monday04/21/18 (hospital bed to be delivered, (fidaxomicin approved as outpatient for treatment of C.difficile if patient can take orals with minimal copay, and that if patient cannot take orals at home for fever then rectal acetaminophen can be given) and no other workup for the fever Hospitalist called patient's daughter to update whether comfort care measures should be implemented today. Patient's daughter apparently still would like the IV metronidazole to be continued to continue the partial C.difficile treatment. Hospitalist have commented that while the current urinalysis were negative, that blood cultures were and this fever may be from C.difficile infection versus another source of infection and that final blood culture results are unlikely to return by Monday04/21/18. 04/21/18 the blood cultures from 04/20/18 have returned as gram negative bacilli have discussed with patient's daughter about blood culture results and goal would be to treat with oral antibiotic only and today to discharge with home hospice and no intention by patient's daughter to continue further hospitalization now or in the future goals of care: -gram negative bacteremia: oral ciprofloxacin 500 mg daily for 14 days -patient has prescription of fidaxomicin 200 mg twice a day for full 10 day course to be given in case patient can take oral regimen daily and consistently at home with home hospice -as per palliative care service recommendations discharge prescriptions have been made for lorazepam 1mg PO/SL Q4h PRN anxiety/agitation if patient becomes agitated; AND while Patient has no pain currently Roxanol 5mg PO/SL Q3h PRN pain or SOB if pain or discomfort arises. -Prescription made for rectal Acetaminophen 650 mg every 4 hours as needed for fever (2) C. difficile diarrhea: as above (3) Acute renal failure superimposed on stage 3 chronic kidney disease: Acute renal failure superimposed on stage 3 chronic kidney disease: prior baseline 1.2; was 1.4 at 04/04/18 hospital discharge 1.7 on presentation on 04/11/18, peaked at 4.3 on 04/13/18; creatinine 2.43 by at this point in time patient has had almost daily IV fluids while inpatient and that the renal function has not returned to baseline discharge to home with hospice (4) Altered mental status: Metabolic encephalopathy due to sepsis/c.difficile/DAVION advanced dementia had been on oral ativan at home, is on IV prn while inpatient Has Vision impairment Has Hearing Difficulty (5) DM (diabetes mellitus): A1C 03/26/18 was 6.2 sliding scale insulin as needed while in the hospital will not likely need insulin coverage at home with hospice given poor oral intake (6) Hypothyroidism: IV levothyroxine had been given in the hopital in place of oral Levothyroxine patient can take home dose oral Levothyroxine if possible when on home hospice (7) Hypokalemia: Mostly due to diarrhea generally has resolved has resolved with IV potassium supplmentation (8) History of cholangitis: S/P ERCP and stent placement in the last admission Case discussed with GI has billiary stent functional from previous hospital admission patient unlikely will proceed with ERCP for stent removal as outpatient as he is being discharged to home with home hospice. Patient's family member can re- discuss with [facility] gastroenterology clinic in future if patient' s health can tolerate procedure as outpatient (9) Cholelithiasis: No signs of acute cholecystitis, cholangitis, or choledocholithiasis unlikely to proceed with general surgery to remove gallbladder at this time as patient being discharged home with hospice (10) Hypernatremia: generally resolved serum sodium is 145 (11) Hematuria: Patient had hematuria on this admission from trauma after he pulled the taylor taylor removed on 04/18/18 but continues to have urinary retention and taylor placed back on 04/19/18 resume taylor continue with taylor on discharge to home with home hospice (12) DVT prophylaxis: SCDs CODE STATUS DNR patient's daughter Mariana (cell phone [phone] and work [phone]) Primary Discharge Diagnosis Sepsis, Lactic Acidosis, Clostridium Difficile Infection, Acute kidney Injury ( Acute renal failure), Altered Mental Status (Metabolic encephalopathy), Vision impairment, Hearing Difficulty Discharge Instructions Discharge to home with home hospice -gram negative bacteremia: oral ciprofloxacin 500 mg daily for 14 days -patient has prescription of fidaxomicin 200 mg twice a day for full 10 day course to be given in case patient can take oral regimen daily and consistently at home with home hospice -as per palliative care service recommendations discharge prescriptions have been made for lorazepam 1mg PO/SL Q4h PRN anxiety/agitation if patient becomes agitated; AND while Patient has no pain currently Roxanol 5mg PO/SL Q3h PRN pain or SOB if pain or discomfort arises. -Prescription made for rectal Acetaminophen 650 mg every 4 hours as needed for fever -patient has billiary stent functional from previous hospital admission patient unlikely will proceed with ERCP for stent removal as outpatient as he is being discharged to home with home hospice. Patient's family member can re- discuss with [facility] gastroenterology clinic in future if patient' s health can tolerate procedure as outpatient Total Time Total Time Spent Total Time Spent (In Minutes): 40 Total Time Includes: Examination of the Patient, Discharge Planning and Medication Reconciliation Discharge Plan Discharge Items Patient Disposition: Hospice - Home Reason For Visit: SEPSIS Discharge Diagnosis: Sepsis, Lactic Acidosis, Clostridium Difficile Infection, Acute kidney Injury (Acute renal failure), Altered Mental Status (Metabolic encephalopathy), Vision impairment, Hearing Difficulty Condition: Serious Discharge Goals: Decrease discomfort Activity: Per 'Additional Instructions' section Non-emergency contact: Primary Care Provider Call non-emergency contact if: you have any medication questions Diet: Low Sodium (2gm) Diet Texture: Dental soft (bite-sized) Addtl Provider Instructions: Discharge to home with home hospice -gram negative bacteremia: oral ciprofloxacin 500 mg daily for 14 days -patient has prescription of fidaxomicin 200 mg twice a day for full 10 day course to be given in case patient can take oral regimen daily and consistently at home with home hospice -as per palliative care service recommendations discharge prescriptions have been made for lorazepam 1mg PO/SL Q4h PRN anxiety/agitation if patient becomes agitated; AND while Patient has no pain currently Roxanol 5mg PO/SL Q3h PRN pain or SOB if pain or discomfort arises. -Prescription made for rectal Acetaminophen 650 mg every 4 hours as needed for fever -patient has billiary stent functional from previous hospital admission patient unlikely will proceed with ERCP for stent removal as outpatient as he is being discharged to home with home hospice. Patient's family member can re- discuss with [facility] gastroenterology clinic in future if patient' s health can tolerate procedure as outpatient Prescriptions: New lorazepam 1 mg Tablet 1 mg Sublingual Q4H PRN (Reason: anxiety) 10 Days Qty: 60 RF: 0 fidaxomicin [Dificid] 200 mg Tablet 200 mg PO BID 10 Days Qty: 20 RF: 0 morphine concentrate 100 mg/5 mL (20 mg/mL) Solution 5 mg PO Q3H PRN (Reason: pain) 5 Days Qty: 10 RF: 0 acetaminophen 650 mg suppository 650 mg GA Q6H 12 Days Qty: 50 RF: 0 ciprofloxacin HCl 500 mg Tablet 500 mg PO DAILY 14 Days Qty: 14 RF: 0 Continue quetiapine 25 mg tablet 25 mg PO HS RF: 0 sennosides 8.6 mg Tablet 8.6 mg PO BID PRN (Reason: Constipation) RF: 0 melatonin 3 mg Tablet 6 mg PO HS PRN (Reason: Sleep) RF: 0 cyanocobalamin (vitamin B-12) 500 mcg Tablet 500 mcg PO DAILY RF: 0 cholecalciferol (vitamin D3) [Vitamin D3] 1,000 unit Tablet 2,000 unit PO DAILY RF: 0 menthol-zinc oxide [Calmoseptine] 0.44-20.6 % Ointment 1 applic TOPICAL UD PRN (Reason: skin breakdown) RF: 0 levothyroxine 50 mcg Capsule 50 mcg PO QAM RF: 0 food supplemt, lactose-reduced [Ensure] Liquid 1 btl PO DAILY RF: 0 food supplemt, lactose-reduced [Ensure Clear] Liquid 1 btl PO BID RF: 0 Discontinued lorazepam 0.5 mg Tablet 0.25 mg PO HS RF: 0 lorazepam 0.5 mg Tablet 0.5 mg PO TID RF: 0 cetirizine 10 mg Tablet 5 mg PO DAILY RF: 0 acetaminophen [Tylenol Extra Strength] 500 mg Tablet 500 mg PO Q6H PRN (Reason: Unknown) RF: 0 calcium polycarbophil 625 mg Tablet 625 mg PO DAILY RF: 0 potassium chloride 10 mEq tablet extended release 10 meq PO DAILY Qty: 30 RF: 0 Stand-Alone Forms: [facility] Discharge Orders: Discharge Order (Routine); Ordered 04/21/18 Ordered By: Aristeo Mcgee Admission Data Admit Date/Time: 04/11/18 14:23 Attending Provider: Aristeo Mcgee Admit Provider: Aristeo Mcgee Primary Care Provider: Jacinto Root Other Providers: Aristeo Mcgee ; Thang Green ; Alejandra Montaño ; Karyn Chauhan ; Abby Romero ; Kacy Kelly Service: Medical Other Pending Studies at Discharge: Yes Studies:: blood cultures from 04/20/18
[2018-04-21] MEDS ORDERED: CIPROFLOXACIN 500 MG TAB PO SCH ×2 (09:30→21:00)
== END 2018-04-21 11:30 | disposition hospice, home (50) | DRG 871 ==
LOC: ED 10:39 → SUATTDRO 14:23 → 2S 14:23 → 4W 04-15 20:13
DX: A04.72 Enterocolitis due to Clostridium difficile, not specified as recurrent; Y92.230 Patient room in hospital as the place of occurrence of the external cause; K80.20 Calculus of gallbladder without cholecystitis without obstruction; E87.2 Acidosis; H54.7 Unspecified visual loss; Z66 Do not resuscitate; H91.90 Unspecified hearing loss, unspecified ear; N17.9 Acute kidney failure, unspecified; E87.6 Hypokalemia; R31.9 Hematuria, unspecified; E11.9 Type 2 diabetes mellitus without complications; Z51.5 Encounter for palliative care; X58.XXXA Exposure to other specified factors, initial encounter; N18.3 Chronic kidney disease, stage 3 (moderate); E03.9 Hypothyroidism, unspecified; E87.0 Hyperosmolality and hypernatremia; K57.92 Diverticulitis of intestine, part unspecified, without perforation or abscess without bleeding; F03.90 Unspecified dementia, unspecified severity, without behavioral disturbance, psychotic disturbance, mood disturbance, and anxiety; A41.4 Sepsis due to anaerobes; G93.41 Metabolic encephalopathy; R65.20 Severe sepsis without septic shock